=== PATIENT | male | born 1970 | race Caucasian/White ===

== ENCOUNTER → 2022-03-20 13:29 | Outpatient (CLI) | payer SELFPAY ==
--- NOTE | 2022-03-20 13:43 | DI.RAD.S_ITS ---
PROCEDURE: XR FOOT RT MIN 3V INDICATIONS: right foot injury/swelling/bruising TECHNIQUE: 3 views of the foot were acquired. COMPARISON: None. FINDINGS: Bones: Linear lucency at the posterior superior navicular bone seen on the lateral projection. No dislocations. No suspicious bony lesions. Soft tissues: No tibiotalar joint effusion. Achilles tendon appears normal. IMPRESSION: Possible nondisplaced fracture at the superior navicular bone. Dictated by: Donell Paula M.D. on 03/20/2022 at 14:45 Approved by: Donell Paula M.D. on 03/20/2022 at 14:47
== END ==
PROVIDERS: PCP Family Medicine; Referring Provider Family Medicine; Visit Provider Family Medicine
DX: S90.31XA Contusion of right foot, initial encounter (principal); R22.41 Localized swelling, mass and lump, right lower limb; X58.XXXA Exposure to other specified factors, initial encounter
CPT/HCPCS: 73630

== ENCOUNTER 2022-06-06 10:56 | Observation (INO) | payer SELFPAY ==
[2022-06-06] VITALS (35 sets, daily range): BP systolic 94–165; BP diastolic 53–103; PULSE 95–142; RESP 14–29; TEMP 36.7–37.2; O2SAT 93–98; BMI 28.2
--- NOTE | 2022-06-06 11:00 | DI.RAD.S_ITS ---
PROCEDURE: XR CHEST 1V INDICATIONS: chest pain TECHNIQUE: One view of the chest was acquired. COMPARISON: None. FINDINGS: Surgical changes and devices: None. Lungs and pleura: Lungs are clear. No pleural effusions or pneumothorax. Mediastinum: Mediastinal contours appear normal. Heart size is normal. Bones and chest wall: No suspicious bony lesions. Overlying soft tissues appear unremarkable. IMPRESSION: No acute pulmonary process. Dictated by: Tova Ovalles M.D. on 06/06/2022 at 11:32 Approved by: Tova Ovalles M.D. on 06/06/2022 at 11:32
[2022-06-06] MEDS: ASPIRIN 81 MG CHEW TAB 324 MG PO (11:23)
[2022-06-06] MEDS: NITROGLYCERIN 0.4 MG SL TAB SL (11:24)
--- NOTE | 2022-06-06 11:27 | PC.NURSE ---
Pt requesting water, educated and re-educated on reason for NPO status.
[2022-06-06 11:29] LABS: Add Manual Diff / Slide Review NO; Basophils Absolute Auto 100 /uL (0-100); Basophils Percent Auto 0.8 % (0-2); Eosinophils Absolute Auto 100 /uL (0-450); Eosinophils Percent Auto 0.4 % (2-4); Hematocrit 42.3 % (41-53); Hemoglobin 14.5 g/dL (13.5-17.5); Lymphocytes Absolute Auto 3000 /uL (1100-4500); Lymphocytes Percent Auto 20.8 % (25-40); Mean Corpuscular HGB Conc 34.2 % (30-36); Monocytes Absolute Auto 500 /uL (0-900); Monocytes Percent Auto 3.6 % (3-14); Neutrophils Absolute Auto 10900 /uL (1500-7000); Neutrophils Percent Auto 74.4 % (50-75); Platelet Count 221 X10^3/uL (150-400); Red Blood Cell Count 3.92 X10^6/uL (4.5-5.9); Red Cell Distribution Width 15.7 % (11.6-14.8); White Blood Cell Count 14.7 X10^3/uL (4.5-11.0)
[2022-06-06 11:33] LABS: INR 0.9 (0.9-1.3); Prothrombin Time 10.8 SECONDS (10.1-12.7)
--- NOTE | 2022-06-06 11:35 | PC.NURSE ---
Pt denies improvement in symptoms after Nitroglycerin, pt reports new nausea and feels sweaty, Dr. Jaime aware.
[2022-06-06 11:36] LABS: PTT Partial Thromboplastin Tim 27 SECONDS (26-36)
[2022-06-06 11:38] LABS: Alanine Aminotransferase 21 IU/L (<50); Albumin 4.7 g/dL (3.5-5.0); Albumin Globulin Ratio 1.4 (1.0-2.8); Alkaline Phosphatase 82 U/L (38-126); Aspartate Aminotransferase 36 IU/L (17-59); BUN Creatinine Ratio 18.8 (6-22); Bilirubin Total 0.7 mg/dL (0.2-1.3); Blood Urea Nitrogen 13 mg/dL (9-20); Calcium 8.8 mg/dL (8.4-10.2); Carbon Dioxide 11 mmol/L (22-32); Chloride 105 mmol/L (98-107); Creatine Kinase 67 U/L (55-170); Estimated Glomerular Filt Rate > 60 mL/min (>60); Globulin 3.3 g/dL (1.7-4.1); Glucose 56 mg/dL (70-100); HEMOLYSIS < 15 (0-50); Lipase 92 U/L (23-300); Magnesium 1.9 mg/dL (1.6-2.3); Potassium 3.6 mmol/L (3.4-5.1); Sodium 142 mmol/L (137-145)
--- NOTE | 2022-06-06 11:47 | DI.CT.S_ITS ---
PROCEDURE: CT ANGIO CHEST ABDOMEN PELVIS INDICATIONS: pain TECHNIQUE: Precontrast 5 mm thick sections acquired from the lung apices to the iliac crests. After the administration of intravenous contrast, 2.5 mm thick sections again acquired from the lung apices to the iliac crests. Maximum intensity projection (MIP) oblique sagittal and coronal reformats were then acquired. For radiation dose reduction, the following was used: automated exposure control. COMPARISON: [facility], CR, XR CHEST 1V, 06/06/2022, 11:10. FINDINGS: Image quality: Excellent. AORTA: No evidence of dissection, aneurysm, nor significant stenosis. CHEST: Lungs and pleura: No acute airspace opacities. There is mild scarring within the right mid lung anteriorly. Mild scarring within the left anterior lung base and left lower lobe posteriorly. No pleural effusions or pneumothorax. Central and peripheral airways are patent and normal in caliber. Mediastinum: Heart size is normal. No pericardial effusion. No mediastinal or hilar adenopathy by size criteria. Central pulmonary arteries are normal in size. Esophagus is normal in caliber. No hiatal hernias. There is mild calcification of the coronary vasculature. Bones and chest wall: No axillary adenopathy by size criteria. Thyroid gland is within normal limits . No suspicious bony lesions. No vertebral body compression fractures. ABDOMEN: Vasculature: Celiac trunk and mesenteric arteries are patent. Renal arteries are also patent. Solid organs: Liver is normal in size and enhancement. Gallbladder is grossly unremarkable . Biliary system is non dilated. Pancreas enhances normally. Spleen is normal in size and enhancement. No adrenal nodules. Both kidneys are normal in size and enhancement, without hydronephrosis. Peritoneum and bowel: No free fluid or air. There is diverticulosis of the descending and sigmoid colon. There is moderate thickening of the proximal sigmoid colon within the left anterior pelvis. Normal appendix. Nodes and vessels: No retroperitoneal or mesenteric adenopathy by size criteria. Inferior vena cava is normal in morphology. Miscellaneous: No ventral hernias. PELVIS: Genitourinary: Bladder wall thickness is normal. Miscellaneous: No inguinal hernias or adenopathy. No ventral hernias. Bones: No suspicious bony lesions. No vertebral body compression fractures. IMPRESSION: 1. No acute process involving the thoracoabdominal aorta. 2. Thickening of the proximal sigmoid colon which could indicate diverticulitis. Colonoscopy is recommended to exclude underlying neoplasm. 3. Normal appendix. 4. Coronary artery disease. Dictated by: Annie Simpson M.D. on 06/06/2022 at 12:17 Transcribed by: SANIYA on 06/06/2022 at 12:21 Approved by: Annie Simpson M.D. on 06/06/2022 at 12:27
[2022-06-06 11:49] LABS: Troponin I < 0.012 ng/mL (0.01-0.034)
--- NOTE | 2022-06-06 11:49 | PC.NURSE ---
Per Dr. Jaime, pt provided apple juice r/t glucose level.
[2022-06-06] MEDS: LORazepam 2 MG/ML INJ 0.5 MG IV (11:52)
--- NOTE | 2022-06-06 11:59 | ED_ITS ---
HPI - Chest Pain General Chief Complaint: Chest Pain Stated Complaint: Chest Pains Time Seen by Provider: 06/06/22 11:24 Source: patient Mode of arrival: Ambulatory Limitations: no limitations History of Present Illness HPI narrative: Patient is a 51-year-old male who does not go to doctors or have medical problems but is a current smoker presenting today with chest discomfort. He says he woke up this morning is and felt okay then suddenly felt a heaviness all across his chest. It has been persistent for over an hour it is not any worse is with exertion or rest. He cannot get comfortable. It does not seem to radiate. He is quite restless. He says he was in a normal state of health yesterday. He denies any fever or chills. He currently has no palpitations. He had no issues sleeping last night he has no peripheral edema he denies any palpitation. He is adamant that he does not have pain but he does report pressure Related Data Home Medications Medication Instructions Recorded Confirmed No Known Home Medications 06/06/22 06/06/22 Allergies Allergy/AdvReac Type Severity Reaction Status Date / Time No Known Drug Allergies Allergy Verified 06/06/22 11:08 Review of Systems Review of Systems Narrative: GENERAL: Denies chills, fatigue, malaise, fever, sweats, travel HEENT: Denies sinus pain, ear pain, sore throat, difficulty swallowing, neck pain RESPIRATORY: Denies dyspnea, cough, wheezing, hemoptysis, sputum. CARDIOVASCULAR: See HPI GASTROINTESTINAL: Denies nausea, vomiting, abdominal pain, diarrhea, constipation, melena. : Denies dysuria, frequency, incontinence, hematuria, urinary retention, flank pain. MUSCULOSKELETAL: Denies weakness, joint pain, or bony pain SKIN: No rash, no erythema, no pruritus NEUROLOGIC: Denies weakness, dizziness, headache, numbness, change in speech, confusion PSYCHIATRIC: No concerning psychosocial issues. 12 point review of systems is negative except for those stated above and HPI Patient History Medical History Ankle pain (~2019) Anxiety and depression (~2017) Headache (~2018) Nondisplaced fracture of navicular [scaphoid] of right foot, initial encounter for closed fracture Preventative health care Tobacco abuse counseling Wears glasses Family History Father Hypertension Mental health problem Mother Cancer Hypertension Hyperlipidemia Social History household members: spouse Smoking Status: Current every day smoker Tobacco: How many years used: 25 quit status: considering quitting second hand exposure: Yes alcohol intake: former substance use type: does not use and former substance user Smoking Status: Current every day smoker alcohol intake frequency: 3 or more drinks per day Substance Use Type: does not use Exam Initial Vital Signs Initial Vital Signs: Vital Signs Temperature 98.3 F 06/06/22 11:01 Pulse Rate 102 H 06/06/22 11:01 Respiratory Rate 18 06/06/22 11:01 Blood Pressure 113/75 06/06/22 11:01 Pulse Oximetry 98 06/06/22 11:01 Oxygen Delivery Method 06/06/22 11:01 GENERAL: Restless 51-year-old male HEENT: Head atraumatic,EOMI, pupils reactive, face symmetric, moist mucous membr anes CARDIOVASCULAR: Regular rate and rhythm without murmurs, rubs or gallops. RESPIRATORY: Tachypneic but clear breath sounds ABDOMEN: Soft, nontender. Normoactive bowel sounds all 4 quadrants. No guarding or rebound. EXTREMITIES: Normal range of motion, no clubbing or edema. Neurovascularly in tact NEUROLOGICAL: Alert and oriented x4.Normal gait and speech. Moving all extremities SKIN: Warm, dry, no laceration, no petechiae, no rashes or lesions. Course Orders Ordered: ED Orders 06/06/22 11:00 XR chest 1V Stat 06/06/22 11:07 EKG-12 Lead Stat 06/06/22 11:11 A1C [Hemoglobin A1C% w Est Avg Glu] Urgent Complete Blood Count AUTO DIFF Stat Comprehensive Metabolic Panel Stat Lactate (Lactic Acid) Stat Lipase Stat Magnesium Stat Partial Thromboplastin Time Stat Procalcitonin Stat Prothrombin Time INR Stat Troponin & CK Cardiac Panel Stat 06/06/22 11:47 CT angio chest abdomen pelvis Stat 06/06/22 13:29 Trop I [Troponin I] Stat 06/06/22 13:44 Blood Culture Stat 06/06/22 14:17 COVID19 -Nasal RAPID/Pre-Proc Stat 06/06/22 14:23 EKG-12 Lead Routine 06/06/22 15:51 Lactate (Lactic Acid) Stat 06/06/22 16:39 Urinalysis and Microscopic Urgent 06/06/22 16:40 EC echo doppler complete Urgent tox [Urine Drug Screen, Rapid] Stat 06/06/22 16:42 Consult to Dietitian, Adult Routine 06/07/22 05:00 BMP [Basic Metabolic Panel] DAILY CBC Auto Diff [Complete Blood Count AUTO DIFF] DAILY 06/08/22 05:00 BMP [Basic Metabolic Panel] DAILY CBC Auto Diff [Complete Blood Count AUTO DIFF] DAILY 06/09/22 05:00 BMP [Basic Metabolic Panel] DAILY CBC Auto Diff [Complete Blood Count AUTO DIFF] DAILY Aspirin (Aspirin Ec 81 Mg Tablet) 81 mg PO DAILY [facility] Atorvastatin Calcium (Atorvastatin 20 Mg Tablet) 40 mg PO BEDTIME [facility] Chlordiazepoxide HCl (Chlordiazepoxide 25 Mg Capsule) 50 mg PO Q6HR [facility] Last Admin: 06/06/22 18:25 Dose: 50 mg Documented By: RL Folic Acid (Folic Acid 1 Mg Tablet) 1 mg PO DAILY [facility] Ceftriaxone Sodium 1,000 mg/ (Sodium Chloride) 100 mls @ 200 mls/hr IV Q24H [facility] Stop: 06/12/22 08:59 Lorazepam (Lorazepam 2 Mg/Ml Inj) 0 mg IV [id number] PRN; Protocol PRN Reason: Alcohol Withdrawal Last Admin: 06/06/22 18:07 Dose: 1 mg Documented By: RL Melatonin (Melatonin 3 Mg Tablet) 6 mg PO BEDTIME PRN PRN Reason: Insomnia Metronidazole (Metronidazole 500 Mg Tablet) 500 mg PO TID [facility] Multivitamins (Multivitamin 1 Tablet) 1 tab PO DAILY [facility] Nicotine (Nicotine 21 Mg Patch) 21 mg TOP DAILY [facility] Last Admin: 06/06/22 18:08 Dose: 21 mg Documented By: RL Nitroglycerin (Nitroglycerin 0.4 Mg Sl Tab) 0.4 mg SL [id number] PRN PRN Reason: Chest Pain Last Admin: 06/06/22 11:24 Dose: 0.4 mg Documented By: AT Ondansetron HCl (Ondansetron 4 Mg/2 Ml Inj) 4 mg IV Q6HR PRN PRN Reason: Nausea And Vomiting Polyethylene Glycol (Polyethylene Glycol 3350 17 Gm Powd.Pack) 17 gm PO DAILY PRN PRN Reason: Constipation Sennosides (Sennosides 8.6 Mg Tablet) 8.6 mg PO BID PRN PRN Reason: Constipation Thiamine HCl (Thiamine 100 Mg Tablet) 100 mg PO DAILY [facility] Stop: 06/10/22 09:01 Trazodone HCl (Trazodone 50 Mg Tablet) 50 mg PO BEDTIME PRN PRN Reason: insomnia Discontinued Medications Albuterol/Ipratropium (Albuterol/Ipratropium 3 Ml Ampul) 3 ml INH NOW ONE Stop: 06/06/22 14:25 Last Admin: 06/06/22 14:33 Dose: 3 ml Documented By: CALEB Aspirin (Aspirin 81 Mg Chew Tab) 324 mg PO NOW ONE Stop: 06/06/22 11:17 Last Admin: 06/06/22 11:23 Dose: 324 mg Documented By: AT Sodium Chloride (Normal Saline 0.9%) 1,000 mls @ 1,000 mls/hr IV BOLUS ONE Stop: 06/06/22 13:26 Last Infusion: 06/06/22 15:05 Dose: 0 mls/hr Documented By: Admin: 06/06/22 12:43 Dose: 1,000 mls/hr Documented By: AT Sodium Chloride (Normal Saline 0.9%) 1,000 mls @ 1,000 mls/hr IV BOLUS ONE Stop: 06/06/22 15:57 Last Infusion: 06/06/22 17:13 Dose: 0 mls/hr Documented By: Admin: 06/06/22 15:10 Dose: 1,000 mls/hr Documented By: NAMRATA Levofloxacin (Levaquin) 750 mg in 150 mls @ 100 mls/hr IV NOW ONE Stop: 06/06/22 18:07 Last Admin: 06/06/22 18:47 Dose: 100 mls/hr Metronidazole (Flagyl) 500 mg in 100 mls @ 100 mls/hr IV NOW ONE Stop: 06/06/22 17:37 Last Infusion: 06/06/22 18:38 Dose: 0 mls/hr Documented By: Admin: 06/06/22 17:38 Dose: 100 mls/hr Documented By: RL Lorazepam (Lorazepam 2 Mg/Ml Inj) 0.5 mg IV NOW ONE Stop: 06/06/22 11:48 Last Admin: 06/06/22 11:52 Dose: 0.5 mg Documented By: AT Lorazepam (Lorazepam 2 Mg/Ml Inj) 1 mg IV NOW ONE Stop: 06/06/22 16:35 Last Admin: 06/06/22 16:44 Dose: 1 mg Documented By: NAMRATA Morphine Sulfate (Morphine 2 Mg/Ml Inj) 2 mg IV NOW ONE Stop: 06/06/22 11:34 Phenobarbital (Phenobarbital 65 Mg/Ml Vial) 130 mg IV NOW ONE Stop: 06/06/22 16:35 Last Admin: 06/06/22 16:47 Dose: 130 mg Documented By: NAMRATA Vital Signs Vital signs: Vital Signs - 8 hr 06/06/22 11:01 06/06/22 11:24 06/06/22 11:30 Temperature 98.3 F Pulse Rate 102 H 98 H 110 H Respiratory Rate 18 20 Blood Pressure 113/75 117/72 94/57 L Pulse Oximetry 98 98 Oxygen Delivery Method Room Air Room Air 06/06/22 11:35 06/06/22 11:40 06/06/22 11:46 Temperature Pulse Rate 101 H 105 H 95 H Respiratory Rate 18 Blood Pressure 102/58 L 96/53 L 109/65 Pulse Oximetry 98 Oxygen Delivery Method Room Air 06/06/22 11:50 06/06/22 12:15 06/06/22 12:30 Temperature Pulse Rate 106 H 109 H Respiratory Rate 18 Blood Pressure 117/76 106/61 107/65 Pulse Oximetry 93 Oxygen Delivery Method Room Air 06/06/22 12:45 06/06/22 13:00 06/06/22 13:15 Temperature Pulse Rate 110 H 113 H 117 H Respiratory Rate 18 18 18 Blood Pressure 124/73 109/57 L 100/54 L Pulse Oximetry 93 93 93 Oxygen Delivery Method Room Air Room Air Room Air 06/06/22 13:32 06/06/22 14:00 06/06/22 14:33 Temperature Pulse Rate 119 H 112 H 114 H Respiratory Rate 19 16 18 Blood Pressure Pulse Oximetry 94 93 94 Oxygen Delivery Method Room Air Room Air Room Air 06/06/22 14:26 06/06/22 14:26 06/06/22 14:30 Temperature Pulse Rate 112 H Respiratory Rate 20 Blood Pressure 121/81 124/75 Pulse Oximetry 96 Oxygen Delivery Method 06/06/22 14:30 06/06/22 15:00 06/06/22 15:00 Temperature Pulse Rate 110 H 108 H Respiratory Rate 16 14 Blood Pressure 113/77 Pulse Oximetry 93 94 Oxygen Delivery Method Room Air Room Air 06/06/22 15:30 06/06/22 15:30 06/06/22 16:00 Temperature Pulse Rate 108 H Respiratory Rate 15 Blood Pressure 116/79 110/75 Pulse Oximetry 95 Oxygen Delivery Method Room Air 06/06/22 16:00 06/06/22 16:30 06/06/22 16:31 Temperature Pulse Rate 117 H 122 H Respiratory Rate 24 18 Blood Pressure 165/102 H Pulse Oximetry 94 97 Oxygen Delivery Method Room Air 06/06/22 16:31 06/06/22 16:10 Temperature Pulse Rate 121 H 132 H Respiratory Rate 21 Blood Pressure 129/90 Pulse Oximetry 97 Oxygen Delivery Method MDM - Chest Pain Lab Data Result diagrams: 06/06/22 11:11 06/06/22 11:11 Labs: Lab Results 06/06/22 06/06/22 06/06/22 Range/Units 11:11 11:11 11:11 WBC 14.7 H (4.5-11.0) X10^3/uL RBC 3.92 L (4.5-5.9) X10^6/uL Hgb 14.5 (13.5-17.5) g/dL Hct 42.3 (41-53) % MCV 108.0 H (80-100) fL MCH 37.0 H (26-34) PG MCHC 34.2 (30-36) % RDW 15.7 H (11.6-14.8) % Plt Count 221 (150-400) X10^3/uL Neut % (Auto) 74.4 (50-75) % Lymph % (Auto) 20.8 L (25-40) % Banner % (Auto) 3.6 (3-14) % Eos % (Auto) 0.4 L (2-4) % Baso % (Auto) 0.8 (0-2) % Neut # (Auto) 72646 H (4988-5277) /uL Lymph # (Auto) 3000 (1726-5187) /uL Banner # (Auto) 500 (0-900) /uL Eos # (Auto) 100 (0-450) /uL Baso # (Auto) 100 (0-100) /uL PT 10.8 (10.1-12.7) SECONDS INR 0.9 (0.9-1.3) APTT 27 (26-36) SECONDS Sodium 142 (137-145) mmol/L Potassium 3.6 (3.4-5.1) mmol/L Chloride 105 (98-107) mmol/L Carbon Dioxide 11 L (22-32) mmol/L BUN 13 (9-20) mg/dL Creatinine 0.69 (0.66-1.25) mg/dL Estimated GFR > 60 (>60) mL/min BUN/Creatinine Ratio 18.8 (6-22) Glucose 56 L (70-100) mg/dL Hemoglobin A1c (4.0-6.0) % Lactate (0.7-2.1) mmol/L Calcium 8.8 (8.4-10.2) mg/dL Magnesium 1.9 (1.6-2.3) mg/dL Total Bilirubin 0.7 (0.2-1.3) mg/dL AST 36 (17-59) IU/L ALT 21 (<50) IU/L Alkaline Phosphatase 82 (38-126) U/L Total Creatine Kinase 67 (55-170) U/L CK-MB (CK-2) TNP CK-MB (CK-2) Rel Index TNP Troponin I < 0.012 (0.01-0.034) ng/mL Total Protein 8.0 (6.3-8.2) g/dL Albumin 4.7 (3.5-5.0) g/dL Globulin 3.3 (1.7-4.1) g/dL Albumin/Globulin Ratio 1.4 (1.0-2.8) Lipase 92 (23-300) U/L Procalcitonin (<0.5) ng/mL SARS-CoV-2 (PCR) (Negative) 06/06/22 06/06/22 06/06/22 Range/Units 11:11 11:11 11:11 WBC (4.5-11.0) X10^3/uL RBC (4.5-5.9) X10^6/uL Hgb (13.5-17.5) g/dL Hct (41-53) % MCV (80-100) fL MCH (26-34) PG MCHC (30-36) % RDW (11.6-14.8) % Plt Count (150-400) X10^3/uL Neut % (Auto) (50-75) % Lymph % (Auto) (25-40) % Banner % (Auto) (3-14) % Eos % (Auto) (2-4) % Baso % (Auto) (0-2) % Neut # (Auto) (3208-1792) /uL Lymph # (Auto) (0663-7515) /uL Banner # (Auto) (0-900) /uL Eos # (Auto) (0-450) /uL Baso # (Auto) (0-100) /uL PT (10.1-12.7) SECONDS INR (0.9-1.3) APTT (26-36) SECONDS Sodium (137-145) mmol/L Potassium (3.4-5.1) mmol/L Chloride (98-107) mmol/L Carbon Dioxide (22-32) mmol/L BUN (9-20) mg/dL Creatinine (0.66-1.25) mg/dL Estimated GFR (>60) mL/min BUN/Creatinine Ratio (6-22) Glucose (70-100) mg/dL Hemoglobin A1c 4.6 (4.0-6.0) % Lactate 5.7 H* (0.7-2.1) mmol/L Calcium (8.4-10.2) mg/dL Magnesium (1.6-2.3) mg/dL Total Bilirubin (0.2-1.3) mg/dL AST (17-59) IU/L ALT (<50) IU/L Alkaline Phosphatase (38-126) U/L Total Creatine Kinase (55-170) U/L CK-MB (CK-2) CK-MB (CK-2) Rel Index Troponin I (0.01-0.034) ng/mL Total Protein (6.3-8.2) g/dL Albumin (3.5-5.0) g/dL Globulin (1.7-4.1) g/dL Albumin/Globulin Ratio (1.0-2.8) Lipase (23-300) U/L Procalcitonin 0.06 (<0.5) ng/mL SARS-CoV-2 (PCR) (Negative) 06/06/22 06/06/22 06/06/22 Range/Units 13:29 13:29 14:17 WBC (4.5-11.0) X10^3/uL RBC (4.5-5.9) X10^6/uL Hgb (13.5-17.5) g/dL Hct (41-53) % MCV (80-100) fL MCH (26-34) PG MCHC (30-36) % RDW (11.6-14.8) % Plt Count (150-400) X10^3/uL Neut % (Auto) (50-75) % Lymph % (Auto) (25-40) % Banner % (Auto) (3-14) % Eos % (Auto) (2-4) % Baso % (Auto) (0-2) % Neut # (Auto) (1255-4325) /uL Lymph # (Auto) (9565-5001) /uL Banner # (Auto) (0-900) /uL Eos # (Auto) (0-450) /uL Baso # (Auto) (0-100) /uL PT (10.1-12.7) SECONDS INR (0.9-1.3) APTT (26-36) SECONDS Sodium (137-145) mmol/L Potassium (3.4-5.1) mmol/L Chloride (98-107) mmol/L Carbon Dioxide (22-32) mmol/L BUN (9-20) mg/dL Creatinine (0.66-1.25) mg/dL Estimated GFR (>60) mL/min BUN/Creatinine Ratio (6-22) Glucose (70-100) mg/dL Hemoglobin A1c (4.0-6.0) % Lactate 4.5 H* (0.7-2.1) mmol/L Calcium (8.4-10.2) mg/dL Magnesium (1.6-2.3) mg/dL Total Bilirubin (0.2-1.3) mg/dL AST (17-59) IU/L ALT (<50) IU/L Alkaline Phosphatase (38-126) U/L Total Creatine Kinase (55-170) U/L CK-MB (CK-2) CK-MB (CK-2) Rel Index Troponin I < 0.012 (0.01-0.034) ng/mL Total Protein (6.3-8.2) g/dL Albumin (3.5-5.0) g/dL Globulin (1.7-4.1) g/dL Albumin/Globulin Ratio (1.0-2.8) Lipase (23-300) U/L Procalcitonin (<0.5) ng/mL SARS-CoV-2 (PCR) Negative (Negative) 06/06/22 Range/Units 15:51 WBC (4.5-11.0) X10^3/uL RBC (4.5-5.9) X10^6/uL Hgb (13.5-17.5) g/dL Hct (41-53) % MCV (80-100) fL MCH (26-34) PG MCHC (30-36) % RDW (11.6-14.8) % Plt Count (150-400) X10^3/uL Neut % (Auto) (50-75) % Lymph % (Auto) (25-40) % Banner % (Auto) (3-14) % Eos % (Auto) (2-4) % Baso % (Auto) (0-2) % Neut # (Auto) (8537-3778) /uL Lymph # (Auto) (1517-8823) /uL Banner # (Auto) (0-900) /uL Eos # (Auto) (0-450) /uL Baso # (Auto) (0-100) /uL PT (10.1-12.7) SECONDS INR (0.9-1.3) APTT (26-36) SECONDS Sodium (137-145) mmol/L Potassium (3.4-5.1) mmol/L Chloride (98-107) mmol/L Carbon Dioxide (22-32) mmol/L BUN (9-20) mg/dL Creatinine (0.66-1.25) mg/dL Estimated GFR (>60) mL/min BUN/Creatinine Ratio (6-22) Glucose (70-100) mg/dL Hemoglobin A1c (4.0-6.0) % Lactate 2.5 H (0.7-2.1) mmol/L Calcium (8.4-10.2) mg/dL Magnesium (1.6-2.3) mg/dL Total Bilirubin (0.2-1.3) mg/dL AST (17-59) IU/L ALT (<50) IU/L Alkaline Phosphatase (38-126) U/L Total Creatine Kinase (55-170) U/L CK-MB (CK-2) CK-MB (CK-2) Rel Index Troponin I (0.01-0.034) ng/mL Total Protein (6.3-8.2) g/dL Albumin (3.5-5.0) g/dL Globulin (1.7-4.1) g/dL Albumin/Globulin Ratio (1.0-2.8) Lipase (23-300) U/L Procalcitonin (<0.5) ng/mL SARS-CoV-2 (PCR) (Negative) Point of Care Testing Glucose POC 82 Imaging Data Chest x-ray: Radiologist's Impression: [place] [address] XRay Report Signed Patient: Armen Tran MR#: [id number] : 1970 Acct:[id number] Age/Sex: 51 / M Date of Service: 06/06/22 Loc: ED Accession Number: [id number] ?? Procedure: XR chest 1V Ordering Provider: Yesica Jaime D.O. PROCEDURE:? XR CHEST 1V ? INDICATIONS:? chest pain ? TECHNIQUE:? One view of the chest was acquired.? ? COMPARISON:? None. ? FINDINGS:? ? Surgical changes and devices:? None.? ? Lungs and pleura:? Lungs are clear.? No pleural effusions or pneumothorax.? ? Mediastinum:? Mediastinal contours appear normal.? Heart size is normal.? ? Bones and chest wall:? No suspicious bony lesions.? Overlying soft tissues appear unremarkable.? ? IMPRESSION:? No acute pulmonary process. ? ? Dictated by: Tova Ovalles M.D. on 06/06/2022 at 11:32 ? ? Approved by: Tova Ovalles M.D. on 06/06/2022 at 11:32 CT scan - chest: Radiologist's Impression: CT Scan Report Signed Patient: Armen Tran MR#: [id number] : 1970 Acct:[id number] Age/Sex: 51 / M Date of Service: 06/06/22 Loc: ED Accession Number: [id number] ?? Procedure: CT angio chest abdomen pelvis Ordering Provider: Yesica Jaime D.O. PROCEDURE:? CT ANGIO CHEST ABDOMEN PELVIS ? INDICATIONS:? pain ? TECHNIQUE:? Precontrast 5 mm thick sections acquired from the lung apices to the iliac crests.? After the administration of intravenous contrast, 2.5 mm thick sections again acquired from the lung apices to the iliac crests.? Maximum intensity projection (MIP) oblique sagittal and coronal reformats were then acquired.? For radiation dose reduction, the following was used:? automated exposure control.? ? COMPARISON:? [facility], CR, XR CHEST 1V, 06/06/2022, 11:10. ? FINDINGS:? Image quality:? Excellent.? ? AORTA:? No evidence of dissection, aneurysm, nor significant stenosis. ? CHEST:? Lungs and pleura:? No acute airspace opacities.? There is mild scarring within the right mid lung anteriorly.? Mild scarring within the left anterior lung base and left lower lobe posteriorly.? No pleural effusions or pneumothorax.? Central and peripheral airways are patent and normal in caliber.? ? Mediastinum:? Heart size is normal.? No pericardial effusion.? No mediastinal or hilar adenopathy by size criteria.? Central pulmonary arteries are normal in size.? Esophagus is normal in caliber.? No hiatal hernias.? There is mild calcification of the coronary vasculature. ? Bones and chest wall:? No axillary adenopathy by size criteria.? Thyroid gland is within normal limits .? No suspicious bony lesions.? No vertebral body compression fractures.? ? ? ABDOMEN:? Vasculature:? Celiac trunk and mesenteric arteries are patent.? Renal arteries are also patent.? ? Solid organs:? Liver is normal in size and enhancement.? Gallbladder is grossly unremarkable .? Biliary system is non dilated.? Pancreas enhances normally.? Spleen is normal in size and enhancement.? No adrenal nodules.? Both kidneys are normal in size and enhancement, without hydronephrosis.? ? Peritoneum and bowel:? No free fluid or air.? There is diverticulosis of the descending and sigmoid colon.? There is moderate thickening of the proximal sigmoid colon within the left anterior pelvis.? Normal appendix. ? Nodes and vessels:? No retroperitoneal or mesenteric adenopathy by size criteria.? Inferior vena cava is normal in morphology.? ? Miscellaneous:? No ventral hernias.? ? ? PELVIS:? Genitourinary:? Bladder wall thickness is normal.? ? Miscellaneous:? No inguinal hernias or adenopathy.? No ventral hernias.? ? Bones:? No suspicious bony lesions.? No vertebral body compression fractures.? ? ? IMPRESSION:? 1. No acute process involving the thoracoabdominal aorta. 2. Thickening of the proximal sigmoid colon which could indicate diverticulitis.? Colonoscopy is recommended to exclude underlying neoplasm. 3. Normal appendix. 4. Coronary artery disease.? ? Dictated by: Annie Simpson M.D. on 06/06/2022 at 12:17 ? Transcribed by: SANIYA on 06/06/2022 at 12:21? ? Approved by: Annie Simpson M.D. on 06/06/2022 at 12:27 ? ECG Data Interpretation: EKG 1. Sinus rhythm rate [address] depression in V5 and V6 probable artifact in V3 EKG 2. Definite artifact sinus rhythm rate 101 no ischemic change EKG 3. Sinus tachycardia rate 114 p.r. interval 170 no ischemic changes MDM Narrative Medical decision making narrative: Patient initially quite restless with complaining of chest discomfort. EKG was difficult to get without artifact but eventually did not show any ischemic changes any is 2- troponins. He was given nitroglycerin which did not help his pain along with aspirin. Patient still not feeling right CT angio was done which is also negative questionable diverticulitis but he has no abdominal pain. Patient lactate quite elevated initially at 5.7 he had about 1 L and it went to 4.5. He has blood cultures pending but no obvious infection at this time. He remains tachycardic in the emergency department for number of hours despite IV fluids. Upon re-questioning evaluation he comes out that he does drink alcohol his last drink was last night. Possible alcohol withdrawal which would explain lactic acidosis and ongoing tachycardia. Dr. Giang-patient's symptoms test results and kindly accepts patient Discharge Plan Departure Patient Disposition: Admitted As Inpatient Clinical Impression: Atypical chest pain, Alcohol abuse with withdrawal Admit Date/Time: 06/06/22 16:39 Admit Provider: Erick Giang
--- NOTE | 2022-06-06 12:14 | PC.NURSE ---
Pt reports decreased anxiety and mild improvement in original symptoms, therapeutic communication utilized and updated pt on current plan of care.
[2022-06-06 12:27] LABS: Lactate (Lactic Acid) 5.7 mmol/L (0.7-2.1)
[2022-06-06] MEDS: SODIUM CHLORIDE 0.9% 1,000 ML 1000 ML IV ×2 (12:43→15:10)
[2022-06-06 13:28] LABS: Procalcitonin 0.06 ng/mL (<0.5)
[2022-06-06 13:53] LABS: Reflexed Lactate in 2 Hours Y
[2022-06-06 14:06] LABS: Troponin I < 0.012 ng/mL (0.01-0.034)
[2022-06-06 14:30] LABS: Lactate 2HR (Lactic Acid Rflx) 4.5 mmol/L (0.7-2.1)
[2022-06-06] MEDS: ALBUTEROL/IPRATROPIUM 3 ML AMPUL INH (14:33)
[2022-06-06 14:53] LABS: COVID19 -Nasal RAPID Negative (Negative)
[2022-06-06 16:34] LABS: Lactate (Lactic Acid) 2.5 mmol/L (0.7-2.1)
--- NOTE | 2022-06-06 16:40 | DI.ECHO.S_ITS ---
[facility] +---------+ : : [address] : : : : [id number] : : : : Phone: [phone]+ Echocardiogram Report + + :Name: MOHIT LEYVA Study Date: 06/07/2022 Height: 74 in : :[facility] ReadingLocation: Weight: 220 lb : : Gender: Male BSA: 2.3 m2 : :: 1970 Age: 51 yrs BP: 136/99 mmHg: :Reason For Study: Chest Tightness : :Ordering Physician: Padmaja, : :Erick Performed By: Anuel Horton : :Referring: Erick Giang : + + Interpretation Summary The left ventricle is normal in size and wall thickness. Left ventricular systolic function is normal. The ejection fraction is estimated to be 55-60%. There are no focal wall motion abnormalities. Diastolic parameters suggest a relaxation abnormality of the left ventricle, consistent with probable normal filling pressures. The right ventricle is normal in size and function. Pulmonary artery pressures cannot be estimated because of the lack of a measurable TR jet velocity. Both atria are normal in size. There is no significant valvular heart disease. The ascending aorta is mildly enlarged. Procedure: A two-dimensional transthoracic echocardiogram with color flow and Doppler was performed. The study quality was technically adequate. There is no prior echocardiogram noted for this patient. Left Ventricle: The left ventricle is normal in size and wall thickness. Left ventricular systolic function is normal. The ejection fraction is estimated to be 55-60%. There are no focal wall motion abnormalities. Diastolic parameters suggest a relaxation abnormality of the left ventricle, consistent with probable normal filling pressures. Right Ventricle: The right ventricle is normal in size and function. Atria: Both atria are normal in size. The interatrial septum grossly appears intact with no obvious evidence for an atrial septal defect. Mitral Valve: The mitral valve is normal in structure and function. There is no mitral regurgitation noted. Aortic Valve: The aortic valve is normal in structure and function. No aortic regurgitation is present. Tricuspid Valve: The tricuspid valve is normal in structure and function. No tricuspid regurgitation. Pulmonary artery pressures cannot be estimated because of the lack of a measurable TR jet velocity. Pulmonic Valve: The pulmonic valve is normal in structure and function. There is a trace or physiologic amount of pulmonic regurgitation. There is no significant valvular heart disease. Great Vessels: The aortic root is normal size. The ascending aorta is mildly enlarged. The IVC is of normal diameter and collapses greater than 50% with a sniff. This suggests a low right atrial pressure of 3 mm Hg. Pericardium/ Pleura There is no pericardial effusion. There is no pleural effusion. MMode/2D Measurements & Calculations LVIDd: 5.0 cm LVOT diam: 2.5 cm LVIDs: 3.6 cm Ao root diam: 3.5 cm FS: 27.6 % asc Aorta Diam: 3.8 cm IVSd: 1.1 cm LVPWd: 1.1 cm LV garcia. diameter/BSA (cm/m^2): 2.2 LV sys. diameter/BSA (cm/m^2): 1.6 LA A2 area: 17.3 cm2 RA long axis: 5.4 cm LA A4 area: 17.5 cm2 RA area: 15.8 cm2 LA length (vol): 5.2 cm RA vol: 39.2 ml LA vol: 49.5 ml RA : 17.3 ml/m2 LA vol index: 21.9 ml/m2 TAPSE: 1.9 cm Doppler Measurements & Calculations Ao V2 max: 109.2 cm/sec LVOT Max Ag: 95.3 cm/sec Ao V2 mean: 79.8 cm/sec LV V1 max P.6 mmHg Ao max P.8 mmHg LV V1 VTI: 16.6 cm Ao mean P.8 mmHg NICHOL(I,D): 4.6 cm2 Ao V2 VTI: 18.2 cm NICHOL(V,D): 4.4 cm2 sev ratio: 0.91 NICHOL indexed to BSA (cm^2/m^2): 2.0 MV E max ag: 51.8 cm/sec SV(LVOT): 83.2 ml MV A max ag: 72.4 cm/sec MV E/A: 0.72 Med Peak E' Ag: 6.1 cm/sec E/E' med: 8.6 Lat Peak E' Ag: 9.6 cm/sec E/E' lat: 5.4 E/e' average: 7.0 MV dec time: 0.20 sec Reading Physician:09:31 AM
[2022-06-06] MEDS: LORazepam 2 MG/ML INJ 1 MG IV (16:44)
--- NOTE | 2022-06-06 16:44 | P.HP_ITS ---
History of Present Illness History of Present Illness Date Patient Seen: 06/06/22 Time Patient Seen: 17:37 Chief complaint: Chest Pains Narrative: Angy mcdonald is a 51-year-old male with past medical history of alcohol abuse, tobacco dependence, anxiety, and depression who presents to the ED with chest heaviness found to be in alcohol withdrawal. States he awoke this morning with chest pressure all across his chest. No diaphoresis or NV. Pain did not improve and was constant so he came to the ED. Was given 3 aspirin and 1 nitro which improved the pain. Did not radiate anywhere. Patient says he drinks 1 bottle of [employer] liquor daily and his last drink was at 11pm on 06/05 which was approx 19 hours ago. He denies history of significant withdrawals, DT or seizures. Smokes 1ppd. No family cardiac history. Doesn't use any drugs other than occasional marijuana. May be interested in detox after hospital stay. Patient History Medical History Ankle pain (~2019) Anxiety and depression (~2017) Headache (~2017) Nondisplaced fracture of navicular [scaphoid] of right foot, initial encounter for closed fracture Preventative health care Tobacco abuse counseling Wears glasses Family & Social History Family History Father Hypertension Mental health problem Mother Cancer Hypertension Hyperlipidemia Safety & Behavioral: Feels Safe in Current Yes Environment Been Physically Hurt or No Threatened By a Person Tobacco & Substance use: Smoking Status Current every day smoker alcohol intake former alcohol intake frequency 3 or more drinks per day Substance Use Type does not use Meds Home Medications and Allergies Home Medications Medication Instructions Recorded Confirmed Type No Known Home Medications 06/06/22 06/06/22 History Allergies Allergy/AdvReac Type Severity Reaction Status Date / Time No Known Drug Allergies Allergy Verified 06/06/22 11:08 Review of Systems Review of Systems Narrative: All other systems reviewed with the patient and are negative unless otherwise stated. Exam Vital Signs (past 8 hours): - 06/06/22 11:01 06/06/22 11:24 06/06/22 11:30 Temperature 98.3 F Pulse Rate 102 H 98 H 110 H Respiratory Rate 18 20 Blood Pressure 113/75 117/72 94/57 L Pulse Oximetry 98 98 Oxygen Delivery Method Room Air Room Air 06/06/22 11:35 06/06/22 11:40 06/06/22 11:46 Temperature Pulse Rate 101 H 105 H 95 H Respiratory Rate 18 Blood Pressure 102/58 L 96/53 L 109/65 Pulse Oximetry 98 Oxygen Delivery Method Room Air 06/06/22 11:50 06/06/22 12:15 06/06/22 12:30 Temperature Pulse Rate 106 H 109 H Respiratory Rate 18 Blood Pressure 117/76 106/61 107/65 Pulse Oximetry 93 Oxygen Delivery Method Room Air 06/06/22 12:45 06/06/22 13:00 06/06/22 13:15 Temperature Pulse Rate 110 H 113 H 117 H Respiratory Rate 18 18 18 Blood Pressure 124/73 109/57 L 100/54 L Pulse Oximetry 93 93 93 Oxygen Delivery Method Room Air Room Air Room Air 06/06/22 13:32 06/06/22 14:00 06/06/22 14:33 Temperature Pulse Rate 119 H 112 H 114 H Respiratory Rate 19 16 18 Blood Pressure Pulse Oximetry 94 93 94 Oxygen Delivery Method Room Air Room Air Room Air 06/06/22 14:26 06/06/22 14:26 06/06/22 14:30 Temperature Pulse Rate 112 H Respiratory Rate 20 Blood Pressure 121/81 124/75 Pulse Oximetry 96 Oxygen Delivery Method 06/06/22 14:30 06/06/22 15:00 06/06/22 15:00 Temperature Pulse Rate 110 H 108 H Respiratory Rate 16 14 Blood Pressure 113/77 Pulse Oximetry 93 94 Oxygen Delivery Method Room Air Room Air 06/06/22 15:30 06/06/22 15:30 Temperature Pulse Rate 108 H Respiratory Rate 15 Blood Pressure 116/79 Pulse Oximetry 95 Oxygen Delivery Method Room Air Oxygen Delivery Method Room Air Narrative Exam Narrative: GEN: no acute distress, anxious and tremulous HEENT: moist mucous membranes, PERRL NECK: trachea midline, no JVD CV: tachycardic, regular rhythm, no murmurs PULM: clear bilaterally ABD: soft, nontender, nondistended, no organomegaly EXT: warm and well perfused with no edema NEURO: awake, alert, oriented, no focal deficits Objective Labs Result Diagrams: 06/06/22 11:11 06/06/22 11:11 Labs: Laboratory Results - last 24 hr 06/06/22 06/06/22 06/06/22 11:11 11:11 11:11 WBC 14.7 H RBC 3.92 L Hgb 14.5 Hct 42.3 MCV 108.0 H MCH 37.0 H MCHC 34.2 RDW 15.7 H Plt Count 221 Neut % (Auto) 74.4 Lymph % (Auto) 20.8 L [place] % (Auto) 3.6 Eos % (Auto) 0.4 L Baso % (Auto) 0.8 Neut # (Auto) 66162 H Lymph # (Auto) 3000 [place] # (Auto) 500 Eos # (Auto) 100 Baso # (Auto) 100 PT 10.8 INR 0.9 APTT 27 Sodium 142 Potassium 3.6 Chloride 105 Carbon Dioxide 11 L BUN 13 Creatinine 0.69 Estimated GFR > 60 BUN/Creatinine Ratio 18.8 Glucose 56 L Lactate Calcium 8.8 Magnesium 1.9 Total Bilirubin 0.7 AST 36 ALT 21 Alkaline Phosphatase 82 Total Creatine Kinase 67 CK-MB (CK-2) TNP CK-MB (CK-2) Rel Index TNP Troponin I < 0.012 Total Protein 8.0 Albumin 4.7 Globulin 3.3 Albumin/Globulin Ratio 1.4 Lipase 92 Procalcitonin SARS-CoV-2 (PCR) 06/06/22 06/06/22 06/06/22 11:11 11:11 13:29 WBC RBC Hgb Hct MCV MCH MCHC RDW Plt Count Neut % (Auto) Lymph % (Auto) [place] % (Auto) Eos % (Auto) Baso % (Auto) Neut # (Auto) Lymph # (Auto) [place] # (Auto) Eos # (Auto) Baso # (Auto) PT INR APTT Sodium Potassium Chloride Carbon Dioxide BUN Creatinine Estimated GFR BUN/Creatinine Ratio Glucose Lactate 5.7 H* Calcium Magnesium Total Bilirubin AST ALT Alkaline Phosphatase Total Creatine Kinase CK-MB (CK-2) CK-MB (CK-2) Rel Index Troponin I < 0.012 Total Protein Albumin Globulin Albumin/Globulin Ratio Lipase Procalcitonin 0.06 SARS-CoV-2 (PCR) 06/06/22 06/06/22 06/06/22 13:29 14:17 15:51 WBC RBC Hgb Hct MCV MCH MCHC RDW Plt Count Neut % (Auto) Lymph % (Auto) [place] % (Auto) Eos % (Auto) Baso % (Auto) Neut # (Auto) Lymph # (Auto) [place] # (Auto) Eos # (Auto) Baso # (Auto) PT INR APTT Sodium Potassium Chloride Carbon Dioxide BUN Creatinine Estimated GFR BUN/Creatinine Ratio Glucose Lactate 4.5 H* 2.5 H Calcium Magnesium Total Bilirubin AST ALT Alkaline Phosphatase Total Creatine Kinase CK-MB (CK-2) CK-MB (CK-2) Rel Index Troponin I Total Protein Albumin Globulin Albumin/Globulin Ratio Lipase Procalcitonin SARS-CoV-2 (PCR) Negative Assessment & Plan Assessment & Plan narrative: # acute alcohol withdrawal -drinks 1 bottle of liquor daily, last drink 19 hours prior to admission -CIWA with IV ativan PRN -librium 50mg q6h PRN -seizure precautions -MV, thiamine and folate # chest pain -classic description of chest pressure relieved with nitro in ED -troponin negative x2, EKG without ST changes -obtain echocardiogram -likely unable to perform stress test due to alcohol withdrawal, once out of withdrawals can try -telemetry -start 81mg ASA daily -start lipitor 40mg nightly -check A1c and lipids # leukocytosis with possible acute diverticulitis -CT abdomen showed colonic wall thickening with possible diverticulitis however patient has no abdominal pain -WBC 14 of unknown source, possibly in contraction and stress. Check UA -will start antibiotics for now -continue with Rocephin and Flagyl -f/u blood cultures # lactic acidosis, improving -lactate of 5.7 on admission, possibly due to dehydration versus colitis -improved to 2.7 with fluids Code status is full code. COVID negative. DVT prophylaxis with Lovenox. Proxy is Maryan spouse. I have reviewed home meds and used all available resources to reconcile the home meds. This patient will be admitted as patient and will require greater than 2 midnights of hospital time to treat alcohol withdrawal, chest pain and possible diverticulitis. Time Spent With Patient Critical Care time: I spent a total of [] minutes of critical care time on this patient's care today; this time is exclusive of procedural time.
[2022-06-06] MEDS: PHENobarbital 65 MG/ML VIAL 130 MG IV (16:47)
[2022-06-06] MEDS: metroNIDAZOLE 500 MG/100 ML PIGGYBACK 100 MG IV (17:38)
[2022-06-06 17:45] LABS: Hemoglobin A1C% w Est Avg Glu 4.6 % (4.0-6.0)
[2022-06-06] MEDS: LORazepam 2 MG/ML INJ IV (18:07)
[2022-06-06] MEDS: NICOTINE 21 MG PATCH TOP (18:08)
[2022-06-06] MEDS: chlordiazePOXIDE 25 MG CAPSULE 50 MG PO ×2 (18:25→23:15)
[2022-06-06 18:27] LABS: Reflexed Lactate in 2 Hours Y
[2022-06-06] MEDS: levoFLOXacin 750 MG/150 ML PIGGYBACK 100 MG IV (18:47)
[2022-06-06 19:00] LABS: Lactate 2HR (Lactic Acid Rflx) 1.2 mmol/L (0.7-2.1)
[2022-06-06] MEDS: ATORVASTATIN 20 MG TABLET 40 MG PO (20:30)
[2022-06-06] MEDS: metroNIDAZOLE 500 MG TABLET PO (20:30)
--- NOTE | 2022-06-06 20:30 | PC.NURSE ---
On assessment, patient's HR 140's while awake. CIWA 1. KALEB Hudson made aware. 1L bolus of LR given. After liter bolus given, HR still sustaining 120's-130's while sleeping. KALEB Hudson updated.
[2022-06-06] MEDS: LACTATED RINGERS 1,000 ML 1000 ML IV (20:31)
[2022-06-06 21:55] LABS: Appearance Urine UA CLEAR; Bilirubin Urine UA NEGATIVE (NEGATIVE); Color Urine UA YELLOW; Glucose Urine UA NEGATIVE (Negative); Ketones Urine UA 3+ (NEGATIVE); Leukocyte Esterase Urine UA NEGATIVE (NEGATIVE); Nitrite Urine UA NEGATIVE (Negative); Occult Blood Urine UA NEGATIVE (Negative); Protein Urine UA NEGATIVE (Negative); Urobilinogen Urine UA 0.2 E.U./dL (0.2)
[2022-06-06 22:00] LABS: UR Morphine/Opiate cutoff 300 Negative (Negative); Ur Creatinine Normal (Normal); Ur Specific Gravity Normal (Normal); Urine Amphetamines Negative (Negative); Urine Cocaine Negative (Negative); Urine Methamphetamines Negative (Negative); Urine Phencyclidine Negative (Negative); Urine Tetrahydrocannabinol Positive (Negative); Urine pH Normal (Normal)
[2022-06-06 22:01] LABS: Urine Barbiturates Negative (Negative); Urine Benzodiazepines Positive (Negative); Urine MDMA Negative (Negative); Urine Methadone Negative (Negative); Urine Oxycodone Negative (Negative); Urine Tricyclic Antidepressant Negative (Negative)
[2022-06-06 22:03] LABS: Bacteria Urine None Seen; Culture Indicated Urine Cult Not Indicated; RBC Urine None Seen (0-5/HPF); Urine Comments Microscopic Normal; WBC Urine None Seen (0-5/HPF)
[2022-06-06] MEDS: LACTATED RINGERS 1,000 ML 80 ML IV (23:15)
[2022-06-07] VITALS (11 sets, daily range): BP systolic 120–168; BP diastolic 62–106; PULSE 88–119; RESP 14–26; TEMP 36.6–36.9; O2SAT 98
[2022-06-07] MEDS: chlordiazePOXIDE 25 MG CAPSULE 50 MG PO (06:21)
[2022-06-07 07:01] LABS: Add Manual Diff / Slide Review NO; Basophils Absolute Auto 100 /uL (0-100); Basophils Percent Auto 0.7 % (0-2); Eosinophils Absolute Auto 100 /uL (0-450); Eosinophils Percent Auto 0.7 % (2-4); Hematocrit 37.8 % (41-53); Hemoglobin 13.1 g/dL (13.5-17.5); Lymphocytes Absolute Auto 1200 /uL (1100-4500); Lymphocytes Percent Auto 11.8 % (25-40); Mean Corpuscular HGB Conc 34.7 % (30-36); Mean Corpuscular Hemoglobin 37.1 PG (26-34); Monocytes Absolute Auto 700 /uL (0-900); Monocytes Percent Auto 7.1 % (3-14); Neutrophils Absolute Auto 8000 /uL (1500-7000); Neutrophils Percent Auto 79.7 % (50-75); Platelet Count 170 X10^3/uL (150-400); Red Blood Cell Count 3.53 X10^6/uL (4.5-5.9); Red Cell Distribution Width 15.3 % (11.6-14.8)
[2022-06-07 07:12] LABS: BUN Creatinine Ratio 13.9 (6-22); Blood Urea Nitrogen 10 mg/dL (9-20); Calcium 8.5 mg/dL (8.4-10.2); Carbon Dioxide 27 mmol/L (22-32); Chloride 103 mmol/L (98-107); Estimated Glomerular Filt Rate > 60 mL/min (>60); Glucose 118 mg/dL (70-100); HEMOLYSIS < 15 (0-50); Potassium 3.9 mmol/L (3.4-5.1); Sodium 136 mmol/L (137-145)
[2022-06-07 07:23] LABS: Troponin I < 0.012 ng/mL (0.01-0.034)
--- NOTE | 2022-06-07 07:37 | P.PN_ITS ---
Exam Vital Signs (past 8 hours): - 06/07/22 03:00 06/07/22 00:00 06/07/22 00:00 Pulse Rate 99 H 115 H Respiratory Rate 15 17 Blood Pressure 168/100 H 127/96 H Pulse Oximetry Oxygen Flow Rate 06/07/22 00:30 06/07/22 01:00 06/07/22 01:00 Pulse Rate 119 H 117 H Respiratory Rate 17 14 Blood Pressure 120/92 H Pulse Oximetry Oxygen Flow Rate 06/07/22 01:30 06/07/22 02:00 06/07/22 02:00 Pulse Rate 111 H 109 H Respiratory Rate 14 19 Blood Pressure 148/98 H Pulse Oximetry Oxygen Flow Rate 06/07/22 02:30 06/07/22 03:00 06/07/22 03:00 Pulse Rate 104 H 99 H Respiratory Rate 14 15 Blood Pressure 168/100 H Pulse Oximetry Oxygen Flow Rate 06/07/22 03:30 06/07/22 04:00 Pulse Rate 110 H 100 H Respiratory Rate 21 17 Blood Pressure 159/62 H Pulse Oximetry 98 Oxygen Flow Rate 0 Oxygen Delivery Method Room Air Oxygen Flow Rate 0 Narrative Exam Narrative: GEN: no acute distress, anxious and tremulous HEENT: moist mucous membranes, PERRL NECK: trachea midline, no JVD CV: tachycardic, regular rhythm, no murmurs PULM: clear bilaterally ABD: soft, nontender, nondistended, no organomegaly EXT: warm and well perfused with no edema NEURO: awake, alert, oriented, no focal deficits Objective Labs Result Diagrams: 06/07/22 06:41 06/07/22 06:41 Labs: Laboratory Results - last 24 hr 06/06/22 06/06/22 06/06/22 11:11 11:11 11:11 WBC 14.7 H RBC 3.92 L Hgb 14.5 Hct 42.3 MCV 108.0 H MCH 37.0 H MCHC 34.2 RDW 15.7 H Plt Count 221 Neut % (Auto) 74.4 Lymph % (Auto) 20.8 L [place] % (Auto) 3.6 Eos % (Auto) 0.4 L Baso % (Auto) 0.8 Neut # (Auto) 39957 H Lymph # (Auto) 3000 [place] # (Auto) 500 Eos # (Auto) 100 Baso # (Auto) 100 PT 10.8 INR 0.9 APTT 27 Sodium 142 Potassium 3.6 Chloride 105 Carbon Dioxide 11 L BUN 13 Creatinine 0.69 Estimated GFR > 60 BUN/Creatinine Ratio 18.8 Glucose 56 L Hemoglobin A1c Lactate Calcium 8.8 Magnesium 1.9 Total Bilirubin 0.7 AST 36 ALT 21 Alkaline Phosphatase 82 Total Creatine Kinase 67 CK-MB (CK-2) TNP CK-MB (CK-2) Rel Index TNP Troponin I < 0.012 Total Protein 8.0 Albumin 4.7 Globulin 3.3 Albumin/Globulin Ratio 1.4 Lipase 92 Procalcitonin Urine Color Urine Appearance Urine pH Ur Specific [place] Urine Protein Urine Glucose (UA) Urine Ketones Urine Occult Blood Urine Nitrate Urine Bilirubin Urine Urobilinogen Ur Leukocyte Esterase Urine RBC Urine WBC Urine Bacteria Ur Culture Indicated? Micro UA Comment Nasal Screen MRSA (PCR) U Opiates 300ng/mL cut Ur Oxycodone Screen Urine Methadone Screen Ur Barbiturates Screen U Tricyclic Antidepress Ur Phencyclidine Scrn Ur Amphetamines Screen U Methamphetamines Scrn Ur MDMA Scrn (Ecstasy) U Benzodiazepines Scrn Urine Cocaine Screen U Marijuana (THC) Screen SARS-CoV-2 (PCR) 06/06/22 06/06/22 06/06/22 11:11 11:11 11:11 WBC RBC Hgb Hct MCV MCH MCHC RDW Plt Count Neut % (Auto) Lymph % (Auto) [place] % (Auto) Eos % (Auto) Baso % (Auto) Neut # (Auto) Lymph # (Auto) [place] # (Auto) Eos # (Auto) Baso # (Auto) PT INR APTT Sodium Potassium Chloride Carbon Dioxide BUN Creatinine Estimated GFR BUN/Creatinine Ratio Glucose Hemoglobin A1c 4.6 Lactate 5.7 H* Calcium Magnesium Total Bilirubin AST ALT Alkaline Phosphatase Total Creatine Kinase CK-MB (CK-2) CK-MB (CK-2) Rel Index Troponin I Total Protein Albumin Globulin Albumin/Globulin Ratio Lipase Procalcitonin 0.06 Urine Color Urine Appearance Urine pH Ur Specific [place] Urine Protein Urine Glucose (UA) Urine Ketones Urine Occult Blood Urine Nitrate Urine Bilirubin Urine Urobilinogen Ur Leukocyte Esterase Urine RBC Urine WBC Urine Bacteria Ur Culture Indicated? Micro UA Comment Nasal Screen MRSA (PCR) U Opiates 300ng/mL cut Ur Oxycodone Screen Urine Methadone Screen Ur Barbiturates Screen U Tricyclic Antidepress Ur Phencyclidine Scrn Ur Amphetamines Screen U Methamphetamines Scrn Ur MDMA Scrn (Ecstasy) U Benzodiazepines Scrn Urine Cocaine Screen U Marijuana (THC) Screen SARS-CoV-2 (PCR) 06/06/22 06/06/22 06/06/22 13:29 13:29 14:17 WBC RBC Hgb Hct MCV MCH MCHC RDW Plt Count Neut % (Auto) Lymph % (Auto) [place] % (Auto) Eos % (Auto) Baso % (Auto) Neut # (Auto) Lymph # (Auto) [place] # (Auto) Eos # (Auto) Baso # (Auto) PT INR APTT Sodium Potassium Chloride Carbon Dioxide BUN Creatinine Estimated GFR BUN/Creatinine Ratio Glucose Hemoglobin A1c Lactate 4.5 H* Calcium Magnesium Total Bilirubin AST ALT Alkaline Phosphatase Total Creatine Kinase CK-MB (CK-2) CK-MB (CK-2) Rel Index Troponin I < 0.012 Total Protein Albumin Globulin Albumin/Globulin Ratio Lipase Procalcitonin Urine Color Urine Appearance Urine pH Ur Specific [place] Urine Protein Urine Glucose (UA) Urine Ketones Urine Occult Blood Urine Nitrate Urine Bilirubin Urine Urobilinogen Ur Leukocyte Esterase Urine RBC Urine WBC Urine Bacteria Ur Culture Indicated? Micro UA Comment Nasal Screen MRSA (PCR) U Opiates 300ng/mL cut Ur Oxycodone Screen Urine Methadone Screen Ur Barbiturates Screen U Tricyclic Antidepress Ur Phencyclidine Scrn Ur Amphetamines Screen U Methamphetamines Scrn Ur MDMA Scrn (Ecstasy) U Benzodiazepines Scrn Urine Cocaine Screen U Marijuana (THC) Screen SARS-CoV-2 (PCR) Negative 06/06/22 06/06/22 06/06/22 15:51 17:55 18:40 WBC RBC Hgb Hct MCV MCH MCHC RDW Plt Count Neut % (Auto) Lymph % (Auto) [place] % (Auto) Eos % (Auto) Baso % (Auto) Neut # (Auto) Lymph # (Auto) [place] # (Auto) Eos # (Auto) Baso # (Auto) PT INR APTT Sodium Potassium Chloride Carbon Dioxide BUN Creatinine Estimated GFR BUN/Creatinine Ratio Glucose Hemoglobin A1c Lactate 2.5 H 1.2 Calcium Magnesium Total Bilirubin AST ALT Alkaline Phosphatase Total Creatine Kinase CK-MB (CK-2) CK-MB (CK-2) Rel Index Troponin I Total Protein Albumin Globulin Albumin/Globulin Ratio Lipase Procalcitonin Urine Color Urine Appearance Urine pH Ur Specific [place] Urine Protein Urine Glucose (UA) Urine Ketones Urine Occult Blood Urine Nitrate Urine Bilirubin Urine Urobilinogen Ur Leukocyte Esterase Urine RBC Urine WBC Urine Bacteria Ur Culture Indicated? Micro UA Comment Nasal Screen MRSA (PCR) Negative for mrsa U Opiates 300ng/mL cut Ur Oxycodone Screen Urine Methadone Screen Ur Barbiturates Screen U Tricyclic Antidepress Ur Phencyclidine Scrn Ur Amphetamines Screen U Methamphetamines Scrn Ur MDMA Scrn (Ecstasy) U Benzodiazepines Scrn Urine Cocaine Screen U Marijuana (THC) Screen SARS-CoV-2 (PCR) 06/06/22 06/06/22 06/07/22 21:45 21:45 06:41 WBC RBC Hgb Hct MCV MCH MCHC RDW Plt Count Neut % (Auto) Lymph % (Auto) [place] % (Auto) Eos % (Auto) Baso % (Auto) Neut # (Auto) Lymph # (Auto) [place] # (Auto) Eos # (Auto) Baso # (Auto) PT INR APTT Sodium Potassium Chloride Carbon Dioxide BUN Creatinine Estimated GFR BUN/Creatinine Ratio Glucose Hemoglobin A1c Lactate Calcium Magnesium Total Bilirubin AST ALT Alkaline Phosphatase Total Creatine Kinase CK-MB (CK-2) CK-MB (CK-2) Rel Index Troponin I < 0.012 Total Protein Albumin Globulin Albumin/Globulin Ratio Lipase Procalcitonin Urine Color Yellow Urine Appearance Clear Urine pH 5.0 Ur Specific [place] 1.020 Urine Protein Negative Urine Glucose (UA) Negative Urine Ketones 3+ H Urine Occult Blood Negative Urine Nitrate Negative Urine Bilirubin Negative Urine Urobilinogen 0.2 Ur Leukocyte Esterase Negative Urine RBC None seen Urine WBC None seen Urine Bacteria None seen Ur Culture Indicated? Cult not indicated Micro UA Comment Microscopic normal Nasal Screen MRSA (PCR) U Opiates 300ng/mL cut Negative Ur Oxycodone Screen Negative Urine Methadone Screen Negative Ur Barbiturates Screen Negative U Tricyclic Antidepress Negative Ur Phencyclidine Scrn Negative Ur Amphetamines Screen Negative U Methamphetamines Scrn Negative Ur MDMA Scrn (Ecstasy) Negative U Benzodiazepines Scrn Positive H Urine Cocaine Screen Negative U Marijuana (THC) Screen Positive H SARS-CoV-2 (PCR) 06/07/22 06/07/22 06:41 06:41 WBC 10.0 RBC 3.53 L Hgb 13.1 L Hct 37.8 L MCV 107.0 H MCH 37.1 H MCHC 34.7 RDW 15.3 H Plt Count 170 Neut % (Auto) 79.7 H Lymph % (Auto) 11.8 L [place] % (Auto) 7.1 Eos % (Auto) 0.7 L Baso % (Auto) 0.7 Neut # (Auto) 8000 H Lymph # (Auto) 1200 [place] # (Auto) 700 Eos # (Auto) 100 Baso # (Auto) 100 PT INR APTT Sodium 136 L Potassium 3.9 Chloride 103 Carbon Dioxide 27 BUN 10 Creatinine 0.72 Estimated GFR > 60 BUN/Creatinine Ratio 13.9 Glucose 118 H Hemoglobin A1c Lactate Calcium 8.5 Magnesium Total Bilirubin AST ALT Alkaline Phosphatase Total Creatine Kinase CK-MB (CK-2) CK-MB (CK-2) Rel Index Troponin I Total Protein Albumin Globulin Albumin/Globulin Ratio Lipase Procalcitonin Urine Color Urine Appearance Urine pH Ur Specific [place] Urine Protein Urine Glucose (UA) Urine Ketones Urine Occult Blood Urine Nitrate Urine Bilirubin Urine Urobilinogen Ur Leukocyte Esterase Urine RBC Urine WBC Urine Bacteria Ur Culture Indicated? Micro UA Comment Nasal Screen MRSA (PCR) U Opiates 300ng/mL cut Ur Oxycodone Screen Urine Methadone Screen Ur Barbiturates Screen U Tricyclic Antidepress Ur Phencyclidine Scrn Ur Amphetamines Screen U Methamphetamines Scrn Ur MDMA Scrn (Ecstasy) U Benzodiazepines Scrn Urine Cocaine Screen U Marijuana (THC) Screen SARS-CoV-2 (PCR) PFSH Medical History Ankle pain (~2019) Anxiety and depression (~2018) Headache (~2018) Nondisplaced fracture of navicular [scaphoid] of right foot, initial encounter for closed fracture Preventative health care Tobacco abuse counseling Wears glasses Family History Father Hypertension Mental health problem Mother Cancer Hypertension Hyperlipidemia Social History household members: spouse Smoking Status: Current every day smoker Tobacco: How many years used: 25 quit status: considering quitting second hand exposure: Yes alcohol intake: former substance use type: does not use and former substance user Assessment & Plan Assessment & Plan narrative: # acute alcohol withdrawal -drinks 1 bottle of liquor daily, last drink 19 hours prior to admission -CIWA with IV ativan PRN -librium 50mg q6h PRN -seizure precautions -MV, thiamine and folate # chest pain -classic description of chest pressure relieved with nitro in ED -troponin negative x2, EKG without ST changes -obtain echocardiogram -likely unable to perform stress test due to alcohol withdrawal, once out of withdrawals can try -telemetry -start 81mg ASA daily -start lipitor 40mg nightly -check A1c and lipids # leukocytosis with possible acute diverticulitis -CT abdomen showed colonic wall thickening with possible diverticulitis however patient has no abdominal pain -WBC 14 of unknown source, possibly in contraction and stress. Check UA -will start antibiotics for now -continue with Rocephin and Flagyl -f/u blood cultures # lactic acidosis, improving -lactate of 5.7 on admission, possibly due to dehydration versus colitis -improved to 2.7 with fluids Code status is full code. COVID negative. DVT prophylaxis with Lovenox. Proxy is Maryan spouse. I have reviewed home meds and used all available resources to reconcile the home meds. This patient will be admitted as patient and will require greater than 2 mi dnights of hospital time to treat alcohol withdrawal, chest pain and possible diverticulitis. Time Spent With Patient Critical Care time: I spent a total of [] minutes of critical care time on this patient's care today; this time is exclusive of procedural time. Quality VTE Deep Vein Thrombosis/Pulmonary Embolism Present on Admission: No
[2022-06-07] MEDS: THIAMINE 100 MG TABLET PO (08:10)
[2022-06-07] MEDS: ASPIRIN EC 81 MG TABLET PO (08:10)
[2022-06-07] MEDS: FOLIC ACID 1 MG TABLET PO (08:10)
[2022-06-07] MEDS: metroNIDAZOLE 500 MG TABLET PO (08:10)
[2022-06-07] MEDS: MULTIVITAMIN 1 TABLET 1 TAB PO (08:10)
[2022-06-07] MEDS: NICOTINE 21 MG PATCH TOP (08:10)
--- NOTE | 2022-06-07 08:11 | PC.NURSE ---
LR infusion paused for stress test.
[2022-06-07] MEDS: cefTRIAXone 1,000 MG in SODIUM CHLORIDE 0.9% 100 ML 200 MG IV (09:08)
--- NOTE | 2022-06-07 13:15 | DIET.CONS ---
Addendum entered by Renee Lawton 06/07/22 15:25: RD reviewed and agrees Original Note: Dietary Consultation Note Admission Date: 06/06/2022 16:39 Assessment: Pt is a 51 yo M admitted for chest pain and referred to RD for alcoholism. Pt is currently NPO r/t stress test r/t HR >140?s. Pt is taking MV, Thiamine, and Folate in hospital. RD met with Pt and Pt?s at bedside. Pt reports UBW of 200-210# and gained some weight during COVID. Pt reports no recent changes in body weight. Diet recall: Wake: 9-10 am B: 9-10 am Breakfast sandwich with sausage and egg on Kyr[place] muffin or bagel, OJ L: 12-12:30 pm Whole sandwich or Mac & cheese, or leftovers S: Varies D: 7 pm Ribs/steak, potatoes, salad S: Ice cream or other dessert Beverages: Drinks roughly 34 oz water daily, switches in the afternoon to juice (can drink a 32 oz bottle of cranberry juice in 1 day). When asked about EtOH, pt initially stated he occasionally drinks whiskey. Later, pt reported >6 beers and ? 750 mL whiskey daily. H&P reports pt consumes 1 bottle of Hernandez [place] daily. Pt RBC 3.53 x 10^6/uL (Low), Hgb 13.1 g/dL (Low), Hct 37.8% (Low), MCV 107.0 fL (High), MCH 37.1 PG (High) possible r/t EtOH intake. Ht: 187.96 cm Wt: 99.79 kg BMI: 28.2 UBW: 200-210# Last BM: () MNA: 14 Benjamin Score: 22 Diet: 06/07/22 07:48 NPO Diet Diet Modifications: NPO Type: NPO except for Meds Nutrition Percent Meal Consumed 25% 06/06/22 18:20 Labs: RBC 3.53 X10^6/uL (4.5-5.9) L 06/07/22 06:41 Hgb 13.1 g/dL (13.5-17.5) L 06/07/22 06:41 Hct 37.8 % (41-53) L 06/07/22 06:41 Creatinine 0.72 mg/dL (0.66-1.25) 06/07/22 06:41 Hemoglobin A1c 4.6 % (4.0-6.0) 06/06/22 11:11 Lactate 1.2 mmol/L (0.7-2.1) 06/06/22 18:40 Nutrition Diagnosis: Excessive alcohol intake r/t precontemplative stage of change aeb pt in ICU for EtOH withdrawals, pt reports regular EtOH intake of >3 drinks daily. Interventions: RD provided education on EtOH intake effects on nutritional health, in particular B-vitamins. Pt appeared more inclined to suppl with B-vitamins than reduce EtOH intake. When asked about a plan to reduce EtOH intake, pt reported no plan. RD discussed importance of and recc suppl with MV, in particular, B-vitamin and Vitamin C, when consuming more than the daily recommended amount of EtOH. RD recc reducing EtOH intake. MV suppl intake may be reevaluated as EtOH intake reduces with the goal of obtaining nutrients for a general healthy diet and using suppl only to supplement an existing healthy diet. Monitoring/Evaluations: Consult prn. Electronically Signed by: Serene Wang 06/07/22 13:15 Clinical Dietitian [address] [address]
--- NOTE | 2022-06-07 13:43 | CM.DANOTE ---
Initial DCP Assessment Note Pt is a 51 yo male, resident of [place],arrives w/chest pains and admitted observation for chest pain r/o, cardiac w/u PCP: Arnold Zhong Payer: Self Pay Reviewed chart, pt discussed in multidisciplinary rounds this morning. Discharge expected this afternoon after stress test Per chart, patient admits to drinking approx one bottle of crown royal daily. CIWA 0 overnight. Upon leaving the hospital w/spouse this afternoon, this DIRECTOR BANKING able to provide list of outpatient [facility] treatment providers and detox facility options. Strongly encouraged patient not to quit cold turkey at home; as this could be dangerous given the amount of alcohol patient has reported drinking daily, patient states understanding FALLON Siddiqui Discharge Planning/Care Management CM Discharge Assessment Start: 06/07/22 13:41 Freq: Status: Active Protocol: Document 06/07/22 13:41 DIONY (Rec: 06/07/22 13:43 DIONY [id number]) Discharge Planning Assessment Assigned Microphone Boom Operator FALLON King DPOA/Assigned Designee Name Tova Tran, spouse Contact Information [phone] Advance Directives? No History Provided By Patient Prior Living Arrangements House Household Members spouse Type of transporation used prior to Drives own vehicle admit Independent with ADL's Yes Is patient alert and oriented? Yes Barriers to Discharge No Discharge Plan Home Transportation Arrangement Spouse Referrals Initiated None needed
--- NOTE | 2022-06-07 17:40 | DI.NM.S_ITS ---
DATE OF SERVICE: 06/07/2022 PROCEDURE: Pharmacological perfusion study. INDICATION: Chest pain. RADIOPHARMACEUTICAL: 27.0 millicurie technetium-99m Myoview IV was injected at stress and 9.7 millicurie technetium-99m Myoview IV was injected at rest. CARDIAC STRESS: The patient underwent IV Lexiscan perfusion study under the supervision of an attending staff, as per standard protocol. During Lexiscan, patient has minimal dyspnea and chest tightness, which got better in immediate recovery. Baseline rhythm was sinus. During Lexiscan infusion, there were no obvious ischemic changes or no significant arrhythmias. Baseline blood pressure 132/100. During Lexiscan, blood pressure 142/96. RAW DATA: There is increased subdiaphragmatic activity. The patient's weight is 220 pounds. GATED STUDY: Stress LV ejection fraction 68 percent without any obvious wall motion abnormalities. Stress end-diastolic volume 108 mL. Lung/heart ratio 0.36, which is within normal limits. TID ratio 1.0, which is within normal limits. MYOCARDIAL PERFUSION SCAN: Stress supine, resting supine and stress prone images were compared to each other. Stress supine and resting supine images revealed moderate-size, mildly decreased perfusion of inferior wall and inferoapex, which got completely resolved during stress prone images, suggestive of diaphragmatic tissue attenuation artifact. During stress prone images, no convincing ischemia or infarction. CONCLUSION: I will call this study a normal myocardial perfusion study with evidence of diaphragmatic tissue attenuation artifact, which got resolved during stress prone images. Preserved left ventricular function. No ischemic changes during Lexiscan infusion. No significant arrhythmias. Overall low-risk myocardial perfusion scan. Marc Armen - ELLIOT/alexandro/reynaldo doc#: [id number]/job#: [id number] dd: 06/07/2022 12:55:00 dt: 06/07/2022 17:33:00 DICTATING MD/COPIES TO: Rodrigo Grace MD COPIES MNE: KANIKA;
--- NOTE | 2022-06-07 17:41 | PM.DS.1 ---
History of Present Illness History of Present Illness Date Patient Seen: 06/07/22 Time Patient Seen: 12:00 Chief complaint: Chest Pains Narrative: Angy mcdonald is a 51-year-old male with past medical history of alcohol abuse, tobacco dependence, anxiety, and depression who presents to the ED with chest heaviness found to be in alcohol withdrawal. States he awoke this morning with chest pressure all across his chest. No diaphoresis or NV. Pain did not improve and was constant so he came to the ED. Was given 3 aspirin and 1 nitro which improved the pain. Did not radiate anywhere. Patient says he drinks 1 bottle of [employer] liquor daily and his last drink was at 11pm on 06/05 which was approx 19 hours ago. He denies history of significant withdrawals, DT or seizures. Smokes 1ppd. No family cardiac history. Doesn't use any drugs other than occasional marijuana. Discharge Providers Provider Date of admission: 06/06/22 16:39 Discharge Date: 06/07/22 Primary care physician: Arnold Zhong DO Consults: 06/06/22 16:42 Consult to Dietitian, Adult Routine Comment: Reason For Exam: alcoholism Discharge provider: Erick Giang DO Summary Hospital Course Discharge Diagnosis: # acute alcohol withdrawal -drinks 1 bottle of liquor daily, last drink 19 hours prior to admission -CIWA with IV ativan PRN -librium 50mg q6h PRN -CIWA scores remained low and he was no longer in withdrawals after day 1 in hospital -recommended outpatient PCP medication management for alcohol cessation # chest pain -classic description of chest pressure relieved with nitro in ED -troponin negative x2, EKG without ST changes -echocardiogram with EF 55-60% with no focal WMA's with diastolic dysfunction -nuc med stress test was normal -telemetry -started 81mg ASA daily -started lipitor 40mg nightly -A1c normal -recommended alcohol cessation for heart health # HTN -not on home meds -started losartan 25mg at dc # leukocytosis with possible acute diverticulitis, resolved -CT abdomen showed colonic wall thickening with possible diverticulitis however patient has no abdominal pain -WBC 14 then resolved to 10 -continued with Rocephin and Flagyl, dc on discharge -blood cultures neg at 24 hours # lactic acidosis, improving -lactate of 5.7 on admission, possibly due to dehydration versus colitis -improved to 2.7 with fluids Hospital Course: Admitted for chest pain and alcohol withdrawals. Drinks 1 bottle of liqour daily. Underwent echo and stress test which were normal. Troponins were negative. Patient's withdrawals were mild and he was counseled for 15 minutes on alcohol cessation. Start on baby aspirin, lipitor and losartan for BP at discharge for heart health. Time Spent with Patient Time spent: Greater than 30 minutes Exam Vital Signs (past 8 hours): - 06/07/22 12:26 Temperature 98 F Pulse Rate 88 Respiratory Rate 17 Blood Pressure 154/106 H Pulse Oximetry 98 Oxygen Flow Rate 0 Oxygen Delivery Method Room Air Oxygen Flow Rate 0 Narrative Exam Narrative: GEN: no acute distress, anxious and tremulous HEENT: moist mucous membranes, PERRL NECK: trachea midline, no JVD CV: tachycardic, regular rhythm, no murmurs PULM: clear bilaterally ABD: soft, nontender, nondistended, no organomegaly EXT: warm and well perfused with no edema NEURO: awake, alert, oriented, no focal deficits Objective Labs Result Diagrams: 06/07/22 06:41 06/07/22 06:41 Labs: Laboratory Results - last 24 hr 06/06/22 06/06/22 06/06/22 11:11 17:55 18:40 WBC RBC Hgb Hct MCV MCH MCHC RDW Plt Count Neut % (Auto) Lymph % (Auto) Mccone % (Auto) Eos % (Auto) Baso % (Auto) Neut # (Auto) Lymph # (Auto) Mccone # (Auto) Eos # (Auto) Baso # (Auto) Sodium Potassium Chloride Carbon Dioxide BUN Creatinine Estimated GFR BUN/Creatinine Ratio Glucose Hemoglobin A1c 4.6 Lactate 1.2 Calcium Troponin I Urine Color Urine Appearance Urine pH Ur Specific [place] Urine Protein Urine Glucose (UA) Urine Ketones Urine Occult Blood Urine Nitrate Urine Bilirubin Urine Urobilinogen Ur Leukocyte Esterase Urine RBC Urine WBC Urine Bacteria Ur Culture Indicated? Micro UA Comment Nasal Screen MRSA (PCR) Negative for mrsa U Opiates 300ng/mL cut Ur Oxycodone Screen Urine Methadone Screen Ur Barbiturates Screen U Tricyclic Antidepress Ur Phencyclidine Scrn Ur Amphetamines Screen U Methamphetamines Scrn Ur MDMA Scrn (Ecstasy) U Benzodiazepines Scrn Urine Cocaine Screen U Marijuana (THC) Screen 06/06/22 06/06/2222 21:45 21:45 06:41 WBC RBC Hgb Hct MCV MCH MCHC RDW Plt Count Neut % (Auto) Lymph % (Auto) Mccone % (Auto) Eos % (Auto) Baso % (Auto) Neut # (Auto) Lymph # (Auto) Mccone # (Auto) Eos # (Auto) Baso # (Auto) Sodium Potassium Chloride Carbon Dioxide BUN Creatinine Estimated GFR BUN/Creatinine Ratio Glucose Hemoglobin A1c Lactate Calcium Troponin I < 0.012 Urine Color Yellow Urine Appearance Clear Urine pH 5.0 Ur Specific [place] 1.020 Urine Protein Negative Urine Glucose (UA) Negative Urine Ketones 3+ H Urine Occult Blood Negative Urine Nitrate Negative Urine Bilirubin Negative Urine Urobilinogen 0.2 Ur Leukocyte Esterase Negative Urine RBC None seen Urine WBC None seen Urine Bacteria None seen Ur Culture Indicated? Cult not indicated Micro UA Comment Microscopic normal Nasal Screen MRSA (PCR) U Opiates 300ng/mL cut Negative Ur Oxycodone Screen Negative Urine Methadone Screen Negative Ur Barbiturates Screen Negative U Tricyclic Antidepress Negative Ur Phencyclidine Scrn Negative Ur Amphetamines Screen Negative U Methamphetamines Scrn Negative Ur MDMA Scrn (Ecstasy) Negative U Benzodiazepines Scrn Positive H Urine Cocaine Screen Negative U Marijuana (THC) Screen Positive H 06/07/22 06/07/22 06:41 06:41 WBC 10.0 RBC 3.53 L Hgb 13.1 L Hct 37.8 L MCV 107.0 H MCH 37.1 H MCHC 34.7 RDW 15.3 H Plt Count 170 Neut % (Auto) 79.7 H Lymph % (Auto) 11.8 L Mccone % (Auto) 7.1 Eos % (Auto) 0.7 L Baso % (Auto) 0.7 Neut # (Auto) 8000 H Lymph # (Auto) 1200 Mccone # (Auto) 700 Eos # (Auto) 100 Baso # (Auto) 100 Sodium 136 L Potassium 3.9 Chloride 103 Carbon Dioxide 27 BUN 10 Creatinine 0.72 Estimated GFR > 60 BUN/Creatinine Ratio 13.9 Glucose 118 H Hemoglobin A1c Lactate Calcium 8.5 Troponin I Urine Color Urine Appearance Urine pH Ur Specific [place] Urine Protein Urine Glucose (UA) Urine Ketones Urine Occult Blood Urine Nitrate Urine Bilirubin Urine Urobilinogen Ur Leukocyte Esterase Urine RBC Urine WBC Urine Bacteria Ur Culture Indicated? Micro UA Comment Nasal Screen MRSA (PCR) U Opiates 300ng/mL cut Ur Oxycodone Screen Urine Methadone Screen Ur Barbiturates Screen U Tricyclic Antidepress Ur Phencyclidine Scrn Ur Amphetamines Screen U Methamphetamines Scrn Ur MDMA Scrn (Ecstasy) U Benzodiazepines Scrn Urine Cocaine Screen U Marijuana (THC) Screen [facility] Medical History Ankle pain (~2019) Anxiety and depression (~2017) Headache (~2017) Nondisplaced fracture of navicular [scaphoid] of right foot, initial encounter for closed fracture Preventative health care Tobacco abuse counseling Wears glasses Family History Father Hypertension Mental health problem Mother Cancer Hypertension Hyperlipidemia Social History household members: spouse Smoking Status: Current every day smoker Tobacco: How many years used: 25 quit status: considering quitting second hand exposure: Yes alcohol intake: former substance use type: does not use and former substance user Discharge Plan Discharge Plan Patient Disposition: Home Provider Discharge Comment: You were admitted with chest pain and found to be in minor alcohol withdrawals. All of your heart workup looked great, including no rise in heart enzymes, normal ultrasound of heart, EKG and stress test. I've placed you on some medications for your heart to keep it as healthy as possible including aspirin daily, cholesterol medication and blood pressure medication. Please f/u for a PCP at [facility] clinic to work with them on medication or therapy options to help you quit drinking alcohol. Discharge orders & Medications Prescriptions: New aspirin 81 mg Tablet,Delayed Release (Dr/Ec) 81 mg PO DAILY Qty: 90 0RF atorvastatin 10 mg tablet 10 mg PO BEDTIME Qty: 90 0RF losartan 25 mg tablet 25 mg PO BEDTIME Qty: 90 0RF Continued No Known Home Medications Follow up/Referrals: Arnold Zhong DO [Primary Care Provider] - Discharge Data Primary Care Provider: Arnold Zhong Attending Provider: Erick Giang VTE Deep Vein Thrombosis/Pulmonary Embolism Present on Admission: No
--- NOTE | 2022-06-14 11:38 | PC.NURSE ---
Late Entry; Levaquin infusion initiated 06/06 at 1847 complete 2014.
== END 2022-06-07 13:50 | disposition home or self-care (01) ==
LOC: ED 11:24 → ICU 18:03 → AC 06-07 14:49
PROVIDERS: Admitting Provider Student in an Organized Health Care Education/Training Program; Emergency Provider Emergency Medicine; PCP Family Medicine; Referring Provider Emergency Medicine; Visit Provider Student in an Organized Health Care Education/Training Program
DX: F10.239 Alcohol dependence with withdrawal, unspecified (principal); E87.20 Acidosis, unspecified; D72.829 Elevated white blood cell count, unspecified; F41.9 Anxiety disorder, unspecified; F32.A Depression, unspecified; I10 Essential (primary) hypertension; F17.210 Nicotine dependence, cigarettes, uncomplicated; Z20.822 Contact with and (suspected) exposure to COVID-19
CPT/HCPCS: 36415; 71045; 71275; 74174; 78452; 80048; 80053; 80305; 81001; 82550; 82962; 83036; 83605; 83690; 83735; 84145; 84484; 85025; 85610; 85730; 87040; 87635; 87797; 93005; 93017; 93306; 94640; 96361; 96365; 96366; 96367; 96375; 96376; 99285; C9803; G0378; A9502; J0696; J1956; J2060; J2560; J2785

== ENCOUNTER → 2022-06-21 10:36 | Outpatient (CLI) | payer SELFPAY ==
[2022-06-06 17:47] VITALS: BMI 28.2
--- NOTE | 2022-06-21 10:43 | DI.RAD.S_ITS ---
PROCEDURE: XR FOOT RT MIN 3V INDICATIONS: Follow-up from previous fracture TECHNIQUE: 3 views of the foot were acquired. COMPARISON: [facility], CR, XR FOOT RT MIN 3V, 03/20/2022, 13:47. FINDINGS: Bones: Mild scattered arthrosis. Mild sclerosis and periosteal reaction surrounding the base of the 5th toe proximal phalanx, likely a healing nondisplaced fracture. As before, there is a bone fragment off of the dorsal navicular which may represent a healing fracture. Soft tissues: No tibiotalar joint effusion. Achilles tendon appears normal. IMPRESSION: Again seen is a bone fragment from the dorsal navicular, possibly an age-indeterminate healing fracture. There is also a healing nondisplaced fracture of the base of the 5th toe proximal phalanx. Dictated by: Jeffry Madrid M.D. on 06/21/2022 at 13:31 Approved by: Jeffry Madrid M.D. on 06/21/2022 at 13:33
== END ==
PROVIDERS: PCP Family Medicine; Referring Provider Family Medicine; Visit Provider Family Medicine
DX: S92.254A Nondisplaced fracture of navicular [scaphoid] of right foot, initial encounter for closed fracture (principal); S92.514D Nondisplaced fracture of proximal phalanx of right lesser toe(s), subsequent encounter for fracture with routine healing
CPT/HCPCS: 73630

== ENCOUNTER 2023-02-24 18:25 | Emergency (ER) | payer OTHER, MEDICAID, SELFPAY ==
[2022-06-06 17:47] VITALS: BMI 28.2
[2023-02-24] VITALS (26 sets, daily range): BP systolic 132–170; BP diastolic 76–105; PULSE 96–123; RESP 16–38; TEMP 36.2; O2SAT 93–99; BMI 26.9
--- NOTE | 2023-02-24 18:48 | DI.RAD.S_ITS ---
PROCEDURE: XR FOOT RT MIN 3V INDICATIONS: crushed foot injury ortho md reports toes not aligned TECHNIQUE: 3 views of the foot were acquired. COMPARISON: [facility], CR, XR FOOT 3+ VIEWS RIGHT, 02/22/2023, 17:36. [facility], CR, XR FOOT RT MIN 3V, 06/21/2022, 10:56. FINDINGS: Bones: There are fractures or dislocations at the Lisfranc joints. There is a fracture fragment proximal to the 1st metatarsal. No suspicious bony lesions. Soft tissues: No tibiotalar joint effusion. Achilles tendon appears normal. Soft tissue swelling. IMPRESSION: Lisfranc fractures/dislocations. Alignment appears unchanged since the last exam. Bone details are obscured by overlying cast. Dictated by: Sisi Carlos M.D. on 02/24/2023 at 19:39 Approved by: Sisi Carlos M.D. on 02/24/2023 at 19:42
[2023-02-24] MEDS: HYDROMORPHONE 1 MG INJ IV ×2 (19:13→20:58)
[2023-02-24] MEDS: ONDANSETRON 4 MG/2 ML INJ IV (19:13)
[2023-02-24 19:16] LABS: Add Manual Diff / Slide Review NO; Basophils Absolute Auto 100 /uL (0-100); Basophils Percent Auto 0.8 % (0-2); Eosinophils Absolute Auto 100 /uL (0-450); Eosinophils Percent Auto 1.1 % (2-4); Hematocrit 36.7 % (41-53); Lymphocytes Absolute Auto 1000 /uL (1100-4500); Lymphocytes Percent Auto 12.9 % (25-40); Mean Corpuscular HGB Conc 35.5 % (30-36); Mean Corpuscular Hemoglobin 36.9 PG (26-34); Mean Corpuscular Volume 103.9 fL (80-100); Monocytes Absolute Auto 800 /uL (0-900); Monocytes Percent Auto 10.2 % (3-14); Neutrophils Absolute Auto 5800 /uL (1500-7000); Platelet Count 166 X10^3/uL (150-400); Red Blood Cell Count 3.53 X10^6/uL (4.5-5.9); Red Cell Distribution Width 13.9 % (11.6-14.8); White Blood Cell Count 7.8 X10^3/uL (4.5-11.0)
[2023-02-24 19:35] LABS: Alanine Aminotransferase 20 IU/L (<50); Albumin 4.2 g/dL (3.5-5.0); Albumin Globulin Ratio 1.3 (1.0-2.8); Alkaline Phosphatase 71 U/L (38-126); Aspartate Aminotransferase 26 IU/L (17-59); BUN Creatinine Ratio 18.1 (6-22); Bilirubin Total 0.7 mg/dL (0.2-1.3); Blood Urea Nitrogen 13 mg/dL (9-20); Calcium 9.1 mg/dL (8.4-10.2); Carbon Dioxide 28 mmol/L (22-32); Chloride 100 mmol/L (98-107); Estimated Glomerular Filt Rate > 60 mL/min (>60); Globulin 3.2 g/dL (1.7-4.1); Glucose 97 mg/dL (70-100); HEMOLYSIS 17 (0-50); Potassium 3.8 mmol/L (3.4-5.1); Sodium 133 mmol/L (137-145); Total Protein 7.4 g/dL (6.3-8.2)
--- NOTE | 2023-02-24 19:42 | ED.LOWEXIN ---
HPI - Extremity Injury (Lower) General Chief Complaint: Extremity Injury, Lower Stated Complaint: Broken Toes per pt, needs bones alignedper hisdr Time Seen by Provider: 02/24/23 18:53 Source: patient Mode of arrival: Wheelchair History of Present Illness HPI Narrative: 52-year-old gentleman with a crush injury to his foot, seen at an outside hospital splinted and instructed to follow-up with orthopedics. X-rays were reviewed by Dr. Negro, he has a Lisfranc fracture that needs to be reduced. He presents to the emergency department for that. He is having a significant amount of pain. Related Data Previous Rx's Medication Instructions Recorded losartan 50 mg tablet 50 mg PO DAILY blood pressure #90 07/16/22 tabs oxycodone-acetaminophen 5 mg-325 1 tab PO Q6H PRN pain #20 tabs 02/24/23 mg tablet Allergies Allergy/AdvReac Type Severity Reaction Status Date / Time No Known Drug Allergies Allergy Verified 07/16/22 09:30 Review of Systems Review of Systems Narrative: Pertinent positive and negative findings as per HPI Patient History Medical History Ankle pain (~2019) Anxiety and depression (~2017) Benign essential HTN Headache (~2017) Nondisplaced fracture of navicular [scaphoid] of right foot, initial encounter for closed fracture Preventative health care Tobacco abuse counseling Wears glasses Family History Father Hypertension Mental health problem Mother Cancer Hypertension Hyperlipidemia Social History household members: spouse Smoking Status: Current every day smoker Tobacco: How many years used: 25 quit status: considering quitting second hand exposure: Yes alcohol intake: former substance use type: does not use and former substance user Smoking Status: Current every day smoker alcohol intake frequency: 3 or more drinks per day Substance Use Type: marijuana Exam Initial Vital Signs Initial Vital Signs: Vital Signs Temperature 97.1 F L 02/24/23 18:42 Pulse Rate 118 H 02/24/23 18:42 Respiratory Rate 18 02/24/23 18:42 Pulse Oximetry 98 02/24/23 18:42 Oxygen Delivery Method Room Air 02/24/23 18:42 General: Alert appropriate in no acute distress Respiratory: Able to speak in full sentences, no obvious respiratory distress Skin: No obvious rashes, warm and dry Neurologic: Grossly intact no obvious asymmetries or abnormalities Psych: appropriate insight and affect, cooperative Right lower extremity splint is removed. Significant swelling to the point there is some bulla developing over the dorsum of the foot without any signs of infection. Moderate ecchymosis. Neurovascularly intact Procedures Orthopedic Fracture Reduction Right foot: Time of procedure: 07:30 Time Out Performed: Yes Side: right Fracture Reduction Location: other (Foot, Lisfranc fracture) Analgesia: procedural sedation Technique: direct manipulation and traction/counter-traction Post-reduction neuro exam: intact Post-reduction vascular exam: intact Additional Comments: Postreduction CT scan for preoperative purposes is obtained. Moderate reduction Orthopedic Splinting/Casting Right foot: Side: right Lower Extremity Injury Location: foot Lower Extremity Immobilizer: posterior splint Post splinting neuro exam: intact Post splinting vascular exam: intact Placed by: Provider Procedural Sedation Time of procedure: 07:32 Consent signed: Yes Time out performed: Yes Indication: fracture/dislocation reduction ASA Class: II Mallampati Airway Classification: Class II Preparation: production estimator applied, pulse oximeter, capnometry used, suction/airway equipment at bedside and IV secured IV Propofol dose (mg): 300 Intraservice time/total sedation time (min): 18 ED Sedation Level: Moderate (Concious) Patient Tolerated Procedure: Well Course Orders Ordered: Discontinued Medications Hydromorphone HCl (Hydromorphone 1 Mg Inj) 1 mg IV NOW ONE Stop: 02/24/23 18:54 Last Admin: 02/24/23 19:13 Dose: 1 mg Documented By: Hydromorphone HCl (Hydromorphone 0.5 Mg Inj) 0.5 mg IV Q15MIN PRN PRN Reason: Pain, Hydromorphone HCl (Hydromorphone 1 Mg Inj) 1 mg IV NOW ONE Stop: 02/24/23 20:53 Last Admin: 02/24/23 20:58 Dose: 1 mg Documented By: Ondansetron HCl (Ondansetron 4 Mg/2 Ml Inj) 4 mg IV NOW ONE Stop: 02/24/23 18:54 Last Admin: 02/24/23 19:13 Dose: 4 mg Documented By: Oxycodone/Acetaminophen (Oxycodone/Apap 5/325 Prepack) 1 bottle MISC SEEINSTR ONE Stop: 02/24/23 19:40 Last Admin: 02/24/23 22:38 Dose: 1 bottle Documented By: Oxycodone/Acetaminophen (Oxycodone/Acetaminophen 5/325 Tablet) 2 tab PO NOW ONE Stop: 02/24/23 22:21 Last Admin: 02/24/23 22:38 Dose: 2 tab Documented By: Propofol (Propofol 200 Mg/20 Ml Vial) 200 mg IV NOW ONE Stop: 02/24/23 19:40 Last Admin: 02/24/23 20:28 Dose: 200 mg Documented By: Propofol (Propofol 200 Mg/20 Ml Vial) 200 mg IV NOW ONE Stop: 02/24/23 20:49 Last Admin: 02/24/23 20:50 Dose: 100 mg Documented By: Vital Signs Vital signs: Vital Signs - 8 hr 02/24/23 18:42 02/24/23 19:01 02/24/23 19:02 Temperature 97.1 F L Pulse Rate 118 H 115 H Respiratory Rate 18 Blood Pressure 134/99 H Pulse Oximetry 98 96 Oxygen Delivery Method Room Air Oxygen Flow Rate 02/24/23 19:02 02/24/23 19:30 02/24/23 19:30 Temperature Pulse Rate 114 H 102 H Respiratory Rate Blood Pressure 136/86 Pulse Oximetry 98 93 Oxygen Delivery Method Oxygen Flow Rate 02/24/23 19:50 02/24/23 19:50 02/24/23 19:52 Temperature Pulse Rate 103 H 104 H Respiratory Rate Blood Pressure 161/105 H Pulse Oximetry 95 95 Oxygen Delivery Method Oxygen Flow Rate 02/24/23 19:52 02/24/23 19:55 02/24/23 19:55 Temperature Pulse Rate 98 H Respiratory Rate Blood Pressure 154/93 H 141/95 H Pulse Oximetry 96 Oxygen Delivery Method Oxygen Flow Rate 02/24/23 20:00 02/24/23 20:00 02/24/23 20:05 Temperature Pulse Rate 101 H 104 H Respiratory Rate Blood Pressure 151/96 H Pulse Oximetry 96 95 Oxygen Delivery Method Oxygen Flow Rate 02/24/23 20:05 02/24/23 20:10 02/24/23 20:10 Temperature Pulse Rate 104 H Respiratory Rate Blood Pressure 148/98 H 150/103 H Pulse Oximetry 99 Oxygen Delivery Method Oxygen Flow Rate 02/24/23 20:15 02/24/23 20:15 02/24/23 20:20 Temperature Pulse Rate 99 H 97 H Respiratory Rate Blood Pressure 136/89 Pulse Oximetry 95 96 Oxygen Delivery Method Oxygen Flow Rate 02/24/23 20:20 02/24/23 20:25 02/24/23 20:25 Temperature Pulse Rate 100 H Respiratory Rate Blood Pressure 132/89 145/93 H Pulse Oximetry 94 Oxygen Delivery Method Oxygen Flow Rate 02/24/23 20:28 02/24/23 20:28 02/24/23 20:30 Temperature Pulse Rate 96 H Respiratory Rate Blood Pressure 150/95 H 138/94 H Pulse Oximetry 96 Oxygen Delivery Method Oxygen Flow Rate 02/24/23 20:30 02/24/23 20:35 02/24/23 20:35 Temperature Pulse Rate 115 H Respiratory Rate 24 Blood Pressure 143/96 H Pulse Oximetry 93 93 Oxygen Delivery Method Oxygen Flow Rate 02/24/23 20:40 02/24/23 20:40 02/24/23 20:45 Temperature Pulse Rate 113 H 112 H Respiratory Rate 20 27 H Blood Pressure 147/102 H Pulse Oximetry 93 99 Oxygen Delivery Method Nasal Cannula Oxygen Flow Rate 5 02/24/23 20:45 02/24/23 20:48 02/24/23 20:50 Temperature Pulse Rate 119 H 123 H Respiratory Rate 24 21 Blood Pressure 158/78 H Pulse Oximetry 97 98 Oxygen Delivery Method Room Air Oxygen Flow Rate 02/24/23 20:50 02/24/23 20:55 02/24/23 20:55 Temperature Pulse Rate 116 H Respiratory Rate 27 H Blood Pressure 170/98 H 166/90 H Pulse Oximetry 99 Oxygen Delivery Method Oxygen Flow Rate 02/24/23 21:00 02/24/23 21:01 02/24/23 21:01 Temperature Pulse Rate 118 H 112 H Respiratory Rate 28 H 17 Blood Pressure 159/98 H Pulse Oximetry 99 99 Oxygen Delivery Method Room Air Oxygen Flow Rate MDM - Extremity Injury (Lower) Lab Data 02/24/23 19:07 02/24/23 19:07 Labs: Lab Results 02/24/23 02/24/23 Range/Units 19:07 19:07 WBC 7.8 (4.5-11.0) X10^3/uL RBC 3.53 L (4.5-5.9) X10^6/uL Hgb 13.0 L (13.5-17.5) g/dL Hct 36.7 L (41-53) % MCV 103.9 H (80-100) fL MCH 36.9 H (26-34) PG MCHC 35.5 (30-36) % RDW 13.9 (11.6-14.8) % Plt Count 166 (150-400) X10^3/uL Neut % (Auto) 75.0 (50-75) % Lymph % (Auto) 12.9 L (25-40) % [place] % (Auto) 10.2 (3-14) % Eos % (Auto) 1.1 L (2-4) % Baso % (Auto) 0.8 (0-2) % Neut # (Auto) 5800 (2518-2653) /uL Lymph # (Auto) 1000 L (2530-8652) /uL [place] # (Auto) 800 (0-900) /uL Eos # (Auto) 100 (0-450) /uL Baso # (Auto) 100 (0-100) /uL Sodium 133 L (137-145) mmol/L Potassium 3.8 (3.4-5.1) mmol/L Chloride 100 (98-107) mmol/L Carbon Dioxide 28 (22-32) mmol/L BUN 13 (9-20) mg/dL Creatinine 0.72 (0.66-1.25) mg/dL Estimated GFR > 60 (>60) mL/min BUN/Creatinine Ratio 18.1 (6-22) Glucose 97 (70-100) mg/dL Calcium 9.1 (8.4-10.2) mg/dL Total Bilirubin 0.7 (0.2-1.3) mg/dL AST 26 (17-59) IU/L ALT 20 (<50) IU/L Alkaline Phosphatase 71 (38-126) U/L Total Protein 7.4 (6.3-8.2) g/dL Albumin 4.2 (3.5-5.0) g/dL Globulin 3.2 (1.7-4.1) g/dL Albumin/Globulin Ratio 1.3 (1.0-2.8) [facility] Narrative Medical decision making narrative: CC: Lisfranc fracture right foot, acute issue uncertain prognosis Complicating co-morbidities: Poorly aligned, presents to the ER for reduction Data collected from: patient, Differential considered: Fracture, infection Exam documented above, pertinent findings include: Edema over the dorsum of the foot, bulla developing because of the edema, moderate ecchymosis Discussion: 52-year-old gentleman with right Lisfranc fracture seen and initially evaluated at outside emergency department, to schedule with Orthopedics. X-rays reviewed by orthopedist today and she requested that the patient come to the emergency department for sedation and better reduction/alignment of the fracture to aid in overall healing and swelling so surgical intervention can occur sooner. Patient is evaluated. Procedural sedation as above. Reduction with Dr. Nair at bedside. Sedation went well. Reduction was moderately improved. The bulla were drained and Xeroform gauze was placed over them prior to replacing the splint. Pain was adequately controlled and patient is discharged home. Discharge Plan Departure Patient Disposition: Home Clinical Impression: Lisfranc fracture Instructions: DI for Foot Fracture Activity Restrictions/Additional Instructions: Thank you for coming in today I am sorry that you are suffering with so much pain. We were able to get the bones slightly better aligned, they still are not perfect and once the swelling is down you are going to need surgery. Swelling and spasm is going to continue to be painful for you. Please keep the foot elevated as much as you are able to, ice to the outside of the splint can be helpful. Using 400 mg of ibuprofen (2 [id number] pills) and 1 Tylenol every 6 hours can be very helpful in controlling moderate pain. For severe pain you can use 400 mg of ibuprofen and 1-2 Percocet. Please make sure that you are using MiraLax or additional stool softeners any days that you are using narcotics. They will make you constipated. Additional Percocet prescription has been electronically transmitted to [facility] Please expect a phone call from Dr. Nair's office to set up follow-up appointment. When we took the splint off your foot, there was so much swelling that there was a bit of blistering. The liquid was drained out of the blister and a dressing was applied prior to replacing the splint. If it is hurting more, you are developing a fever or you notice any redness at all you do need to undo part of the splint and look at the skin to make sure there is not infection I wish you the very best Prescriptions: New oxycodone-acetaminophen 5-325 mg tablet 1 tab PO Q6H PRN (Reason: pain) Qty: 20 0RF No Action losartan 50 mg tablet 50 mg PO DAILY Qty: 90 3RF Referrals: Arnold Zhong, [Primary Care Provider] - Stand Alone Forms: Patient Portal/API
[2023-02-24] MEDS: propofoL 200 MG/20 ML VIAL IV ×2 (20:28→20:50)
--- NOTE | 2023-02-24 20:52 | DI.CT.S_ITS ---
PROCEDURE: CT LE RT WO CON INDICATIONS: pre op TECHNIQUE: Noncontrast 1-1.5 mm axial sections acquired from above the tibiotalar joint to the bottom of the calcaneus, with coronal and sagittal reformats. COMPARISON: [facility], CR, XR FOOT RT MIN 3V, 02/24/2023, 18:58. [facility], CR, XR FOOT 3+ VIEWS RIGHT, 02/22/2023, 17:36. FINDINGS: Image quality: Excellent. Bones: There is lateral subluxation of the 1st, 2nd, 3rd, and 4th tarsometatarsal joints. There may also be slight lateral subluxation of the 5th tarsometatarsal joint. There are comminuted plantar fractures at the base of the 2nd metatarsal. There are also milder fractures of the distal medial, middle, and lateral cuneiform bones as well as the distal plantar aspect of the cuboid along the tarsometatarsal joints. There is a comminuted fracture of the lateral sesamoid. Soft tissues: There is periarticular soft tissue swelling along the dorsal aspect of the midfoot as well as the dorsal lateral aspect of the ankle. There is severe fatty atrophy of the visualized foot musculature. The flexor, extensor, peroneal, and Achilles tendons appear intact. IMPRESSION: 1. Lateral subluxation of the tarsometatarsal joints as well as multiple midfoot fractures as described. Findings are consistent with Lisfranc fracture-dislocations. 2. Severe fatty atrophy of the foot musculature most prominent in the forefoot. Dictated by: Joe Smith M.D. on 02/24/2023 at 22:26 Approved by: Joe Smith M.D. on 02/24/2023 at 22:35
--- NOTE | 2023-02-24 21:15 | P.CONS_ITS ---
History of Present Illness Consult details Date Patient Seen: 02/24/23 Time Patient Seen: 21:16 Chief complaint: Broken Toes per pt, needs bones alignedper hisdr Reason for consult: Lisfranc fracture dislocation Requesting provider: Ingrid Macario Narrative: The patient is a 52-year-old male that sustained an injury to his right foot when he was moving a large piece of furniture he twisted his foot and then the piece of furniture also landed on his foot several times. He had pain and swelling. He was seen at [facility] ER in [place] where an x-ray was taken and he was told they did not do reductions and was told to follow-up and sees someone for surgery within 3 days. Patient called my office today I was just able to view x-rays this evening this demonstrated a grossly displaced Lisfranc tarsometatarsal fracture dislocation. Recommended the patient come to the ER at the late hour for attempted closed reduction to help with soft tissue tension and pain and alignment facilitate reduced swelling prior to definitive procedures. He endorses pain he has been nonweightbearing. The injury was on 02/22/2023 Meds Home Medications and Allergies Home Medications Medication Instructions Recorded Confirmed Type losartan 50 mg tablet 50 mg PO DAILY blood pressure #90 07/16/22 07/16/22 Rx tabs Allergies Allergy/AdvReac Type Severity Reaction Status Date / Time No Known Drug Allergies Allergy Verified 07/16/22 09:30 Review of Systems Review of Systems ROS: Yes All systems reviewed with the patient and are negative except as otherwise documented Exam Vital Signs (past 8 hours): - 02/24/23 18:42 02/24/23 19:01 02/24/23 19:02 Temperature 97.1 F L Pulse Rate 118 H 115 H Respiratory Rate 18 Blood Pressure 134/99 H Pulse Oximetry 98 96 Oxygen Delivery Method Room Air Oxygen Flow Rate 02/24/23 19:02 02/24/23 19:30 02/24/23 19:30 Temperature Pulse Rate 114 H 102 H Respiratory Rate Blood Pressure 136/86 Pulse Oximetry 98 93 Oxygen Delivery Method Oxygen Flow Rate 02/24/23 19:50 02/24/23 19:50 02/24/23 19:52 Temperature Pulse Rate 103 H 104 H Respiratory Rate Blood Pressure 161/105 H Pulse Oximetry 95 95 Oxygen Delivery Method Oxygen Flow Rate 02/24/23 19:52 02/24/23 19:55 02/24/23 19:55 Temperature Pulse Rate 98 H Respiratory Rate Blood Pressure 154/93 H 141/95 H Pulse Oximetry 96 Oxygen Delivery Method Oxygen Flow Rate 02/24/23 20:00 02/24/23 20:00 02/24/23 20:05 Temperature Pulse Rate 101 H 104 H Respiratory Rate Blood Pressure 151/96 H Pulse Oximetry 96 95 Oxygen Delivery Method Oxygen Flow Rate 02/24/23 20:05 02/24/23 20:10 02/24/23 20:10 Temperature Pulse Rate 104 H Respiratory Rate Blood Pressure 148/98 H 150/103 H Pulse Oximetry 99 Oxygen Delivery Method Oxygen Flow Rate 02/24/23 20:15 02/24/23 20:15 02/24/23 20:20 Temperature Pulse Rate 99 H 97 H Respiratory Rate Blood Pressure 136/89 Pulse Oximetry 95 96 Oxygen Delivery Method Oxygen Flow Rate 02/24/23 20:20 02/24/23 20:25 02/24/23 20:25 Temperature Pulse Rate 100 H Respiratory Rate Blood Pressure 132/89 145/93 H Pulse Oximetry 94 Oxygen Delivery Method Oxygen Flow Rate 02/24/23 20:28 02/24/23 20:28 02/24/23 20:30 Temperature Pulse Rate 96 H Respiratory Rate Blood Pressure 150/95 H 138/94 H Pulse Oximetry 96 Oxygen Delivery Method Oxygen Flow Rate 02/24/23 20:30 02/24/23 20:35 02/24/23 20:35 Temperature Pulse Rate 115 H Respiratory Rate 24 Blood Pressure 143/96 H Pulse Oximetry 93 93 Oxygen Delivery Method Oxygen Flow Rate 02/24/23 20:40 02/24/23 20:40 02/24/23 20:45 Temperature Pulse Rate 113 H 112 H Respiratory Rate 20 27 H Blood Pressure 147/102 H Pulse Oximetry 93 99 Oxygen Delivery Method Nasal Cannula Oxygen Flow Rate 5 02/24/23 20:45 02/24/23 20:48 02/24/23 20:50 Temperature Pulse Rate 119 H 123 H Respiratory Rate 24 21 Blood Pressure 158/78 H Pulse Oximetry 97 98 Oxygen Delivery Method Room Air Oxygen Flow Rate 02/24/23 20:50 02/24/23 20:55 02/24/23 20:55 Temperature Pulse Rate 116 H Respiratory Rate 27 H Blood Pressure 170/98 H 166/90 H Pulse Oximetry 99 Oxygen Delivery Method Oxygen Flow Rate 02/24/23 21:00 02/24/23 21:01 02/24/23 21:01 Temperature Pulse Rate 118 H 112 H Respiratory Rate 28 H 17 Blood Pressure 159/98 H Pulse Oximetry 99 99 Oxygen Delivery Method Room Air Oxygen Flow Rate Oxygen Delivery Method Room Air Oxygen Flow Rate 5 Narrative Exam Narrative: Alert oriented male no acute distress lying in bed. Heart regular rate and rhythm Lungs clear to auscultation bilaterally Vital signs stable. Right lower extremity demonstrates swelling and at the tarsometatarsal joints where step-off at the knee. There are serous blisters over the 3rd 4th MTP areas. There is plantar ecchymosis and global swelling and absence of skin wrinkles consistent with tarsometatarsal fracture dislocation. Calf is soft. Wiggles toes slightly. Tenderness around the midfoot. Objective Imaging X-ray three views right foot: My impression: AP, lateral, oblique views right foot, Right Lisfranc fracture dislocation appear homolateral gross displacement translation lateral and dorsal Radiologist's impression: IMPRESSION:??Lisfranc?fractures/dislocations.??Alignment?appears?unchanged?since ?the?last?exam.??Bone?details?are?obscured?by?overlying?cast.?? Dictated?by:?Sisi?Breanna?Kisha.José Miguel?on?02/24/2023?at?19:39? Labs 02/24/23 19:07 02/24/23 19:07 Labs: Laboratory Results - last 24 hr 02/24/23 02/24/23 19:07 19:07 WBC 7.8 RBC 3.53 L Hgb 13.0 L Hct 36.7 L MCV 103.9 H MCH 36.9 H MCHC 35.5 RDW 13.9 Plt Count 166 Neut % (Auto) 75.0 Lymph % (Auto) 12.9 L [place] % (Auto) 10.2 Eos % (Auto) 1.1 L Baso % (Auto) 0.8 Neut # (Auto) 5800 Lymph # (Auto) 1000 L [place] # (Auto) 800 Eos # (Auto) 100 Baso # (Auto) 100 Sodium 133 L Potassium 3.8 Chloride 100 Carbon Dioxide 28 BUN 13 Creatinine 0.72 Estimated GFR > 60 BUN/Creatinine Ratio 18.1 Glucose 97 Calcium 9.1 Total Bilirubin 0.7 AST 26 ALT 20 Alkaline Phosphatase 71 Total Protein 7.4 Albumin 4.2 Globulin 3.2 Albumin/Globulin Ratio 1.3 PFSH Medical History Ankle pain (~2019) Anxiety and depression (~2017) Benign essential HTN Headache (~2017) Nondisplaced fracture of navicular [scaphoid] of right foot, initial encounter for closed fracture Preventative health care Tobacco abuse counseling Wears glasses Family History Father Hypertension Mental health problem Mother Cancer Hypertension Hyperlipidemia Social History household members: spouse Tobacco & Substance Use Smoking Status: Current every day smoker Tobacco: How many years used: 25 quit status: considering quitting second hand exposure: Yes alcohol intake: former substance use type: does not use and former substance user Assessment & Plan Assessment and plan (1) Lisfranc fracture: Status: Acute Plan Patient has a right Lisfranc fracture dislocation appears to be homolateral dislocation. Recommended for closed reduction attempt tonight. Closed reduction was attempted under conscious sedation in the emergency room. Grossly appeared slight the improved after closed reduction attempt. Will obtain CT scan for surgical planning. We will go into well-padded splint. Serous blisters will be decompressed and Xeroform placed on these. We will follow up in my clinic in about 1 week. Discussed based on swelling surgery would not be at least until the end of next week and may require additional time so we will see him next week for a skin check and to go over surgical details were planning if skin is appropriate that time we tried to do surgery on the 07 of March if not potentially March 14 or longer if needed due to soft tissue integrity as this will be the most important factor of surgical timing. Recommend elevation heart level or above as much as possible. Time Spent With Patient Time with patient: 30 to 49 minutes with 50% spent counseling/coordinating care
--- NOTE | 2023-02-24 21:15 | PC.NURSE ---
2026: Timeout called with Joanie DUARTE, MD Renaldo, Derrick RT and Katarina RN Propofol administered by provider Renaldo DUARTE as follows: 2027: 60 mg IVP 2029: pt still sitting upright, speaking, 20 mg IVP 2030: pt reaching for foot, 20 mg IVP 2030: pt moving all extremities in response to painful stimuli, 40 mg IVP given 2033: MD Joanie manipulating foot. Pt restless. 60 mg IVP 2037: Pt conscious, sitting up and reaching for foot. Propofol 100 mg IVP given 2042: Procedure complete. Pt A&Ox4.
[2023-02-24] MEDS: OXYCODONE/APAP 5/325 PREPACK 1 BOTTLE MISC (22:38)
[2023-02-24] MEDS: OXYCODONE/ACETAMINOPHEN 5/325 TABLET 2 TAB PO (22:38)
== END 2023-02-24 22:45 | disposition home or self-care (01) ==
PROVIDERS: Emergency Provider Emergency Medicine; PCP Family Medicine
DX: S92.811A Other fracture of right foot, initial encounter for closed fracture (principal); X58.XXXA Exposure to other specified factors, initial encounter
CPT/HCPCS: 28515; 36415; 73630; 73700; 80053; 85025; 96374; 96375; 96376; 99152; 99284; 99285; J1170; J2405; J2704

== ENCOUNTER 2023-02-28 14:10 | Day surgery (SDC) | payer OTHER, MEDICAID, SELFPAY ==
[2022-06-06 17:47] VITALS: BMI 28.2
[2023-02-28] VITALS (8 sets, daily range): BP systolic 138–171; BP diastolic 88–111; PULSE 91–117; RESP 12–21; TEMP 36.4; O2SAT 91–100; BMI 28.2
--- NOTE | 2023-02-28 | DI.RAD.S_ITS ---
PROCEDURE: XR FOOT RT 2V INDICATIONS: PERCUTANEOUS PINNING TECHNIQUE: 11 views of the foot were acquired. COMPARISON: [facility], CT, CT LE RT WO CON, 02/24/2023, 21:15. [facility], CR, XR FOOT RT MIN 3V, 02/24/2023, 18:58. FINDINGS: Multiple intraoperative fluoroscopic views of the right foot demonstrate open reduction and internal fixation of the previously described fracture-subluxation in the right midfoot. IMPRESSION: 1. Multiple intraoperative fluoroscopic views demonstrate ORIF of right midfoot fracture-subluxation. Dictated by: Joe Smith M.D. on 03/01/2023 at 3:14 Approved by: Joe Smith M.D. on 03/01/2023 at 3:15
[2023-02-28] MEDS: LACTATED RINGERS 1,000 ML 42 ML IV ×2 (17:41→21:38)
--- NOTE | 2023-02-28 19:36 | PM.PREOP ---
Pre-operative Note Interval Note History & Physical reviewed/Exam performed by Physician: Yes Changes to H&P: No H&P completed within 30 days and has changed as indicated here:: No changes since H&P consult performed on 02/24/2023. Lungs clear to auscultation heart regular rate and rhythm. Notes history of great toe and sesamoid fracture previous to the recent injury.
[2023-02-28] MEDS: MIDAZOLAM 2 MG/2 ML VIAL IV (19:47)
[2023-02-28] MEDS: fentaNYL 100 MCG/2 ML INJ IV (19:47)
--- NOTE | 2023-02-28 19:48 | SUR.PREOP ---
Time out performed prior to placement of nerve block by IONA Hook.
--- NOTE | 2023-02-28 19:56 | SUR.PREOP ---
Block start time [0800] . Monitoring initiated and maintained throughout procedure. Oxygen and medications given per anesthesiologist instructions. Patient remained stable throughout procedure, no adverse reactions noted. Block end time [].
--- NOTE | 2023-02-28 20:08 | SUR.PREOP ---
Block start time [1730] . Monitoring initiated and maintained throughout procedure. Oxygen and medications given per anesthesiologist instructions. Patient remained stable throughout procedure, no adverse reactions noted. Block end time [2007].
[2023-02-28] MEDS: CEFAZOLIN 2 GM/100 ML PREMIX 100 ML IV (20:44)
--- NOTE | 2023-02-28 20:55 | SUR.OPER ---
Supine on padded OR bed, head on pillow, arms secured on padded arm boards at <90 degrees abduction, legs uncrossed, safety belt at thigh, tape over blanket over lower left leg. Witten bump under right flank
--- NOTE | 2023-02-28 21:11 | PM.PNB.1 ---
Peripheral Nerve Block Note Pre-Procedure Reason for block: Attending surgeon request/order for post-op pain management Pre-procedure checklist: Patient examined and chart reviewed, Risks, benefits, alternatives of block discussed, questions answered, Verification of anti-coagulation status, Site confirmed, Timeout performed and Standard ASA monitors applied Consent obtained from: Patient Procedure Date of procedure: 02/28/23 Start Time: 19:55 End Time: 20:05 Performed by: Mary Hook Sedation - enter dose in comment field: IV Midazolam (mg) (2mg) and IV Fentanyl (mcg) (100mcg) Location: Pre-Op Position: Lateral (left) Laterality: Right Sterile Technique: Sterile barrier maintained, Sterile gloves, Mask, Sterile drapes, U/S probe cover and Chloraprep Skin Wheal: Lidocaine 1% mL: 1 Gauge: 25 Equipment Single injection - Needle brand, gauge, length: PaRegalBoxk sonoplex stim needle 21g x 100mm Medications Medications - enter concentration (%) & mL in comment field: Ropivacaine (0.5% 20ml) Incremental aspiration prior to injection: Yes (q5 ml) Ultrasound Reason for Ultrasound: U/S guidance used for needle placement and U/S used to visualize spread of anesthetic Image printed/saved/archived: Yes Limited exam reveals no abnormal findings: Yes Vital signs VS: - 02/28/23 17:52 02/28/23 19:42 Temperature 97.6 F Pulse Rate 102 H 96 H Respiratory Rate 16 18 Blood Pressure 160/108 H 162/93 H Pulse Oximetry 96 100 Oxygen Delivery Method Room Air Nasal Cannula Oxygen Flow Rate 2 Oxygen Delivery Method Nasal Cannula Oxygen Flow Rate 2 Events Nerve Block Events: Procedure uneventful Complications/Explanation for PNB under General anesthetic: Patient with no pain postoperatively and tolerated block without complaints.
[2023-02-28] MEDS: BUPIVACAINE 0.25% W/ EPI (PF) 10 ML VIAL 20 ML INJ (21:56)
--- NOTE | 2023-02-28 22:19 | P.OP_ITS ---
Operative Date/Time/Diagnoses Date of procedure: 02/28/23 Time of procedure: 22:20 Pre-op diagnosis: Complete right tarsometatarsal fracture dislocation, Lisfranc fracture dislocation s [phone] Post-op diagnosis: same Procedure & Clinicians Procedure: External fixation tarsometatarsal dislocation CPT code 54864, right Closed reduction percutaneous pinning tarsometatarsal joints CPT code 96749-43--2wj TMT Closed reduction percutaneous pinning tarsometatarsal joints CPT code 57484-61--7jr TMT Same procedure as scheduled: Yes Indications: Patient is a 52-year-old male that sustained a complete Hohmann longus Lisfranc fracture dislocation on 02/22/2023 he was seen at an outside hospital (a [facility]) and discharged. And told to find follow-up. He called my office. X-rays were reviewed that demonstrated the complete Humalog as Lisfranc fracture dislocation. Attempted closed reduction in the emergency room [facility] that did not improve alignment and was indicated for external fixation and percutaneous pinning to improve alignment and allow his soft tissues to resolve. Patient is aware he will require definitive fixation which will be a midfoot fusion once his skin is appropriate. He has been counseled on the severity of his injury. He also mentioned that his great toe sesamoid fracture is an old injury. The risks and benefits of the procedure have been discussed with the patient and given the opportunity to ask questions. The risks of surgery include but are not limited to infection, malunion, nonunion, persistence of pain, damage to nerves and blood vessels, posttraumatic arthritis, DVT, PE, cardiopulmonary complications and . The patient expressed a thorough understanding of the risks and benefits of surgery and has elected to proceed. Consent was signed. Surgeon: Arlen Nair Click Yes if Unassisted: Yes Anesthesia Type: General, Peripheral nerve block and Local Operative Notes Findings: Complete Lisfranc fracture dislocation involving the 1st 2nd 3rd and 4th and 5th TMT joints. Highly comminuted fracture fragments including highly comminuted middle cuneiform and separate bony fragments within the Lisfranc interval between the 1st and 2nd metatarsal bases. Closure Type: primary Specimen(s): none sent Prosthetic devices, grafts, tissues, transplants, or devices: Arthrex small external fixator. 2 x3.0 pins in the calcaneus, 2x 3.0 pins in the 1st metatarsal 062x K-wires x2 across 3rd and 4th TMT Estimated Blood Loss (mL): 5 Blood products transfused: none Tourniquet time (min): 0 Procedure in detail: Patient was seen in the preoperative area the site of surgery marked informed consent confirmed. The patient underwent a block by the anesthesia team for postoperative pain control. Patient was brought to the operating room and positioned supine. All bony prominences well padded. A well-padded thigh tourniquet was placed but not elevated. The right lower extremity was prepped and draped in standard sterile fashion. A formal Formal time-out procedure was performed confirming the patient's side and site of surgery administration of preoperative antibiotics. All were in agreement Attention was turned to the right lower extremity C-arm was brought in tarsometatarsal joints were marked out. There was lateral displacement of the 2nd 3rd 4th and 5th metatarsals proximally 1 bone width lateral. For instance the 1st metatarsal lined up with the middle cuneiform not the medial cuneiform. There was also dorsal dislocation and impaction of the 2nd and 3rd metatarsal bases on the middle and lateral cuneiforms. Attempted closed reduction was made this did not budge therefore small poke hole was made over the 2nd metatarsal base and a [place] elevator manipulated into the space between the 2nd metatarsal base and it is dislocated area at the lateral cuneiform to try to lever this over. This was not successful so the pins for the ex fix were placed into the medial calcaneus and into the 1st metatarsal to use as a distracting force. Then sequentially using traction and [place] and strong elevator pressure through the dorsal poke hole incision the metatarsals were manipulated partially reducing the Lisfranc fracture dislocation. This was not able to be completely reduced due to an interposed bone fragment at the Lisfranc interval but alignment was significantly improved from preop. This point the external fixator was tightened x-rays AP lateral planes confirmed improved alignment. Axial plane images confirmed appropriate placement of the calcaneal pins. Additional 6 2 K-wires were placed percutaneously for additional stabilization along the 3rd and 4th tarsometatarsals. Poke hole incisions dorsally were closed with nylon suture the pin sites were bolstered. Lateral pins were cut bent and capped. Dressings were placed with Xeroform gauze Kerlix and a splint. Fluff gauze was used additionally. 10 cc of local anesthetic was also administered. Once the dressings were completed drapes removed the patient was woken from anesthesia and taken to the recovery room in good condition. There no immediate complications. Counts were correct. Complications: none Post-operative Condition: stable Disposition: PACU Plan for aftercare: Nonweightbearing right lower extremity. Elevate heart level or above as much as possible for the next few weeks. Will start DVT prophylaxis with Lovenox postoperative day 1. We will follow up in clinic next week for a progress check. Anticipate external fixation 2-4 weeks prior to definitive fusion surgery. This will be a staged operation due to the severity of the patient's injury and requirement for soft tissue resolution before definitive fusion surgery. Patient was previous issues prescriptions for Zofran and oxycodone.. Keep the splint clean and dry
--- NOTE | 2023-02-28 22:44 | SUR.PHASEI ---
Block start time [2244] . Monitoring initiated and maintained throughout procedure. Oxygen and medications given per anesthesiologist instructions. Patient remained stable throughout procedure, no adverse reactions noted. Block end time [2252].
--- NOTE | 2023-02-28 23:00 | PM.PNB.1 ---
Peripheral Nerve Block Note Pre-Procedure Reason for block: Attending surgeon request/order for post-op pain management Pre-procedure checklist: Patient examined and chart reviewed, Risks, benefits, alternatives of block discussed, questions answered, Site confirmed, Timeout performed and Standard ASA monitors applied Consent obtained from: Patient Procedure Date of procedure: 02/28/23 Start Time: 22:24 End Time: 22:52 Performed by: Mary Hook Sedation - enter dose in comment field: IV Fentanyl (mcg) (50mcg) Location: PACU Position: Lateral (left lateral decubitus) Laterality: Right Sterile Technique: Sterile barrier maintained, Sterile gloves, Mask, Sterile drapes, U/S probe cover and Chloraprep Skin Wheal: Lidocaine 1% mL: 1.5 Gauge: 21 Equipment Single injection - Needle brand, gauge, length: Proginet 21g x 100mm Medications Medications - enter concentration (%) & mL in comment field: Ropivacaine (15 ml) Incremental aspiration prior to injection: Yes (Q 5 ml) Ultrasound Reason for Ultrasound: U/S guidance used for needle placement and U/S used to visualize spread of anesthetic Image printed/saved/archived: No Limited exam reveals no abnormal findings: Yes Vital signs VS: - 02/28/23 17:52 02/28/23 19:42 02/28/23 22:13 Temperature 97.6 F 97.6 F Pulse Rate 102 H 96 H 117 H Respiratory Rate 16 18 16 Blood Pressure 160/108 H 162/93 H 155/104 H Pulse Oximetry 96 100 91 Oxygen Delivery Method Room Air Nasal Cannula Room Air Oxygen Flow Rate 2 02/28/23 22:18 02/28/23 22:23 02/28/23 22:30 Temperature Pulse Rate 110 H 110 H 114 H Respiratory Rate 16 21 18 Blood Pressure 153/88 H 167/111 H 171/106 H Pulse Oximetry 92 93 94 Oxygen Delivery Method Room Air Room Air Room Air Oxygen Flow Rate 02/28/23 22:55 Temperature Pulse Rate 98 H Respiratory Rate 15 Blood Pressure 152/106 H Pulse Oximetry 96 Oxygen Delivery Method Room Air Oxygen Flow Rate Oxygen Delivery Method Room Air Oxygen Flow Rate 2 Events Nerve Block Events: Procedure uneventful Complications/Explanation for PNB under General anesthetic: Patient tolerated procedure without complaints. First block 10 ml injected deep to nerves so block repeated. Patient initially comfortable then complaining of burning pain in foot. 2310 pain now diminishing.
[2023-02-28] MEDS: OXYCODONE/ACETAMINOPHEN 5/325 TABLET 1 TAB PO (23:12)
== END 2023-02-28 23:38 | disposition home or self-care (01) ==
PROVIDERS: PCP Family Medicine; Referring Provider Orthopaedic Surgery Foot and Ankle Surgery; Visit Provider Orthopaedic Surgery Foot and Ankle Surgery
PROC: (CPT 28485; principal; 2023-02-28 16:00)
DX: S93.324A Dislocation of tarsometatarsal joint of right foot, initial encounter (principal); S92.241A Displaced fracture of medial cuneiform of right foot, initial encounter for closed fracture; W20.8XXA Other cause of strike by thrown, projected or falling object, initial encounter; G89.18 Other acute postprocedural pain
CPT/HCPCS: 28615; 28606 ×2; 64450; 73620; 76000; J0330; J0690; J1100; J2250; J2405; J2704; J3010

== ENCOUNTER 2023-03-21 08:54 | Day surgery (SDC) | payer OTHER, MEDICAID, SELFPAY ==
[2022-06-06 17:47] VITALS: BMI 28.2
[2023-03-14 16:06] VITALS: BMI 28.2
--- NOTE | 2023-03-21 | DI.RAD.S_ITS ---
PROCEDURE: XR FOOT RT 2V INDICATIONS: RT FOOT SURGERY TECHNIQUE: 5 digital acquisition views of the foot were acquired. COMPARISON: [facility], CR, XR FOOT RT 2V, 02/28/2023, 20:54. [facility], CR, XR FOOT RT MIN 3V, 02/24/2023, 18:58. FINDINGS: Bones: No fractures, dislocations, or unexpected malalignment identified. There is expected postsurgical change of 1st through 3rd tarsal-metatarsal fusion procedures with screws and fixation plates in expected alignment. There is an additional finding of 2 lateral K-wires crossing the lateral tarsal-metatarsal articulation, which shows normal alignment. No suspicious bony lesions. Soft tissues: No tibiotalar joint effusion. Achilles tendon appears normal. IMPRESSION: Expected postoperative alignment after complex surgical intervention at the tarsal-metatarsal region of the right midfoot. Dictated by: Abhishek Jaeger M.D. on 03/21/2023 at 15:25 Approved by: Abhishek Jaeger M.D. on 03/21/2023 at 15:28
[2023-03-21 09:14] VITALS: BP 140/101; PULSE 97; RESP 24; TEMP 36.6; O2SAT 94; BMI 28.2
[2023-03-21] MEDS: LACTATED RINGERS 1,000 ML 42 ML IV ×2 (09:21→12:37)
[2023-03-21] MEDS: ACETAMINOPHEN 325 MG TABLET 975 MG PO (09:21)
--- NOTE | 2023-03-21 10:46 | PM.PREOP ---
Pre-operative Note Interval Note History & Physical reviewed/Exam performed by Physician: Yes Changes to H&P: No
[2023-03-21] MEDS: CEFAZOLIN 2 GM/100 ML PREMIX 100 ML IV (10:58)
--- NOTE | 2023-03-21 11:36 | SUR.OPER ---
Supine on padded OR bed, head on pillow, arms secured on padded arm boards at <90 degrees abduction, legs uncrossed, safety belt at abdomen, tape over blanket over left lower leg. Right leg on stack of bath blankets and under control of surgeon. Gel bump under right hip
[2023-03-21] MEDS: BUPIVACAINE 0.25% (PF) 30 ML, EPINEPHrine 0.15 MG INJ (11:48)
[2023-03-21 14:24] VITALS: BP 133/86; PULSE 100; RESP 12; O2SAT 92
[2023-03-21 14:29] VITALS: BP 126/99; PULSE 104; RESP 12; O2SAT 96
[2023-03-21 14:30] VITALS: BP 133/86; PULSE 103; RESP 13; TEMP 36.2; O2SAT 92
[2023-03-21 14:34] VITALS: BP 126/99; PULSE 104; RESP 10; O2SAT 96
[2023-03-21 14:39] VITALS: BP 137/87; PULSE 94; RESP 14; O2SAT 94
--- NOTE | 2023-03-21 14:46 | P.OP_ITS ---
Operative Date/Time/Diagnoses Date of procedure: 03/21/23 Time of procedure: 11:00 Pre-op diagnosis: Dislocation tarsometatarsal joints right foot 1st 2nd 3rd 4th and 5th tarsometatarsal joints Post-op diagnosis: same Procedure & Clinicians Procedure: 1. Fusion tarsometatarsal joints 2 were more CPT code 39937, right 2. Open reduction internal fixation Lisfranc CPT code 74477 right 3. Removal external fixation device CPT code 29149 +59 separate site, right foot 4. Closed reduction percutaneous pinning 4th and 5th tarsometatarsal joint CPT code 86861 x2 (2 separate sites) This procedure was performed with a modifier 58 for a staged procedure this was a staged more extensive procedure. First operation was placement of an external fixator. Second operation (today's operation) was removal of the external fixation and a open reduction internal fixation and tarsometatarsal joint fusion involving the 1st 2nd and 3rd tarsometatarsal joints and pinning of the 4th and 5th tarsometatarsal joints During the operation, the services of a physician surgical supplies sterilizer were medically indicated and necessary to provide the exposure of the operative site for the surgical procedure and to maintain the limb in a proper position to carry out the operation safely and efficiently. Without a qualified medical technician assistant being present this would extended the operative procedure and made the procedure technically more difficult to perform. Same procedure as scheduled: Yes Indications: Patient is a 52-year-old male that sustained a complete homologus Lisfranc fracture dislocation of his right foot when he was moving furniture on a stairway helping a friend. He underwent staged spanning external fixation and pinning and is now presenting for definitive open reduction internal fixation and primary fusion for his comminuted severe fracture dislocation. The risks and benefits of the procedure have been discussed with the patient and given the opportunity to ask questions. The risks of surgery include but are not limited to infection, malunion, nonunion, persistence of pain, damage to nerves and blood vessels, posttraumatic arthritis, DVT, PE, cardiopulmonary complications and . The patient expressed a thorough understanding of the risks and benefits of surgery and has elected to proceed. Consent was signed in the office. Surgeon: Arlen Nair Drafting Layout Worker: Henrietta Inamn Anesthesia Type: General, Peripheral nerve block and Local Operative Notes Findings: Complete Lisfranc fracture dislocation involving 1st 2nd and 3rd and 4th and 5th TMT joint laterally displaced. Highly comminuted 2nd metatarsal base fracture The medial spanning external fixator was removed. Tarsometatarsal joints were exposed through plantar medial and dorsal incisions. Fractures were debrided and joint spaces debrided in a reduction maneuver was completed. First 2nd and 3rd tarsometatarsal joints were fused with plates and screws. Fourth and 5th TMT joints were pinned Closure Type: primary Prosthetic devices, grafts, tissues, transplants, or devices: Arthrex plantar Lapidus placed large, right with locking and nonlocking screws. Arthrex 3.0 TMT plate, short x2--these were used for the 2nd and 3rd TMT fusions--locking and nonlocking 3-0 screws One solid 4.0 cancellous screw 2x 062 K-wires across the 4th and 5th TMT joints 5 cc of bone putty Estimated Blood Loss (mL): 50 Blood products transfused: none Tourniquet time (min): 116 Procedure in detail: Patient was seen in the preoperative area the site of surgery was confirmed and marked and the consent confirmed. The patient was brought back to the operating room by the anesthesia team positioned supine on operative table. General anesthesia was administered. A well-padded thigh tourniquet was placed. Ipsilateral bump was placed. Right lower extremity was cleansed. Time-out was performed. The external fixator was removed. The right lower extremity prepped and draped in the standard sterile fashion. A formal time-out procedure was performed confirming the patient's side and site of surgery administration of appropriate preoperative antibiotics. All were in agreement. Esmarch was used for exsanguination and the tourniquet was raised on the thigh to 250 mmHg. Plantar medial incision was made along the plantar border of the 1st metatarsal and medial cuneiform this was taken down through skin subcutaneous tissue. Abductor was carefully peeled off and the 1st TMT joint exposed. There was lateralization of the 1st metatarsal consistent with the lateral fracture dislocation. Separate incision was made in line with the 2nd metatarsal dorsally and carried down through the skin subcutaneous tissues to the level of the 2nd metatarsal and the TMT joints. Due to the lateral dislocation the 2nd metatarsal was initially aligning with the lateral cuneiform. Subperiosteal dissection was taken medial and laterally to expose the middle cuneiform and then laterally to expose the 3rd metatarsal. A K-wire distractor was placed to distract the TMT joints and the fracture dislocations and any remaining cartilage was debrided from the 1st 2nd and 3rd TMT joints. There were additional incarcerated fracture fragments that were removed using a pituitary rongeur. Once the 1st 2nd and 3rd tarsometatarsal joints were prepped this was checked that they could be preliminarily reduced to anatomic position. Once this was completed the joint surfaces were drilled and fenestrated and then the bone putty was placed to help facilitate union. The joints were reduced and held in place with K- wires and a large Ogden clamp. Reduction was checked on intraoperative C-arm and was appropriate. Next a plantar Lapidus plate was placed plantar medially and secured with BB tacks. The plate was secured distally and then the lag screw placed before final tightening the K-wires across the 1st TMT were removed this provided excellent compression. Final screws were placed proximally with the most proximal screw going across the 1st and 2nd cuneiforms. Then attention was turned to the 2nd and 3rd tarsometatarsal joint fusions this was done through the dorsal approach and the 3.0 T-plate from the Arthrex set were used. In similar fashion these joints were prepared with the bone graft and the plates were fixed proximally 1st with olive wires then locking screws and a compression screw placed distally followed by locking screws distally. Multiplanar C-arm fluoroscopy confirmed appropriate alignment of the reduction and hardware placement. Next attention was turned to the 4th and 5th TMT joints. Upon reduction of the 1st 2nd and 3rd TMT joints the 4th and 5th were now aligned anatomically with the borders of the cuboid and these were pinned in place with 062 K-wires in a percutaneous fashion. Once this was completed final fluoroscopic images in AP oblique and lateral planes were obtained confirming appropriate alignment of the hardware. The wounds were irrigated. Tourniquet was released and hemostasis w as achieved. Wounds were closed in a layered fashion with 2-0 Vicryl 4-0 Monocryl and 3-0 nylon suture. Deny sutures were used on the dorsal incision to help reduce tension. An additional Steri-Strips were placed. 20 cc of 0.25% Marcaine with epinephrine was injected for local anesthetic. A sterile dressing with Xeroform gauze Webril,fluffs and Lowry cotton for a bulky splint was applied. Additionally the 062 K-wires had been cut and pin caps placed prior to splint placement. A well-padded posterior and U splint was applied. The patient was woken from anesthesia and taken to the recovery room in good condition there no immediate complications from this procedure. The patient did undergo a postoperative regional block to help postoperative pain control by the anesthesia team. Complications: none Post-operative Condition: stable Disposition: PACU Plan for aftercare: Nonweightbearing x8 weeks. Elevate as much as possible. Follow up in 2-3 weeks for wound check. Sutures may need to stay in place up to 4-6 weeks. K-wires will be retained for 6 weeks and removed in clinic.
== END 2023-03-21 15:17 | disposition home or self-care (01) ==
PROVIDERS: PCP Family Medicine; Referring Provider Orthopaedic Surgery Foot and Ankle Surgery; Visit Provider Orthopaedic Surgery Foot and Ankle Surgery
PROC: (CPT 28615; principal; 2023-03-21 10:15)
PROC: (CPT 28615; 2023-03-21 10:15)
DX: S92.231A Displaced fracture of intermediate cuneiform of right foot, initial encounter for closed fracture (principal); S93.324A Dislocation of tarsometatarsal joint of right foot, initial encounter; S92.321A Displaced fracture of second metatarsal bone, right foot, initial encounter for closed fracture; Y93.89 Activity, other specified; Y92.009 Unspecified place in unspecified non-institutional (private) residence as the place of occurrence of the external cause
CPT/HCPCS: 28615; 28730; 20694; 28606; 73620; 76000; C1713; J0171; J0690; J1170; J2405; J2704; J3010

== ENCOUNTER 2023-03-22 10:35 | Emergency (ER) | payer OTHER, MEDICAID, SELFPAY ==
[2022-06-06 17:47] VITALS: BMI 28.2
[2023-03-22] VITALS (12 sets, daily range): BP systolic 125–157; BP diastolic 77–97; PULSE 104–120; RESP 16–22; O2SAT 92–99; BMI 28.2
[2023-03-22] MEDS: HYDROMORPHONE 1 MG INJ IV ×2 (11:19→12:41)
[2023-03-22] MEDS: ONDANSETRON 4 MG/2 ML INJ IV (11:19)
--- NOTE | 2023-03-22 11:34 | PC.NURSE ---
S/p right foot surgery yesterday, pt c/o intractable severe pain of right foot since approx 0500. Took 10 mg Oxycodone and 15 mg Morphine PO to no effect. Kennedy red blood on dressing under cast. Denies fever or chills. Unable to palpate distal pulse inside cast. Cap refill, sensation, and movement of toes WNL.
--- NOTE | 2023-03-22 12:23 | ED_ITS ---
HPI - Extremity Injury (Lower) General Chief Complaint: Extremity Injury, Lower Stated Complaint: R/foot surgery T-1/pain Time Seen by Provider: 03/22/23 11:12 Source: patient Mode of arrival: Ambulatory Limitations: no limitations History of Present Illness HPI Narrative: 52-year-old male presents status post surgical repair for dislocation tarsometatarsal joints of the right foot 1st through 5th tarsometatarsal tarsal joints. Patient states this is his 3rd procedure he had fusion, open reduction with internal fixation of LisFranc and removal of external fixation device with percutaneous pinning at the 4th and 5th joints. Patient states his spinal wore off last night pain has been increasing. He states he is quite uncomfortable he has been taking oxycodone 5 mg tablets every 4-6 hours. Patient states this is the same amount of pain medication he was taking prior to his surgery. He did have a left overdose of morphine and took a dose of 15 mg morphine. Patient states new numbness or tingling. He states it does feel tight. He states there does seem to be some blood. No fevers, no chest pain or shortness of breath, no passing out, had some nausea last night but no nausea or vomiting today. He has been constipated but had a bowel movement his surgery yesterday none since then. He is passing gas. Denies any other injuries. He states had quite a bit of pain after his other surgeries but not quite to this extent. Surgery was performed here yesterday with Dr. Nair. His last dose of oral pain medication was at 6:30 a.m. in the morning. Patient states normally no other daily prescriptions. No known drug allergies. Patient does use tobacco daily, no alcohol or illicit. Related Data Previous Rx's Medication Instructions Recorded oxycodone-acetaminophen 5 mg-325 1 tab PO Q6H PRN pain #20 tabs 02/24/23 mg tablet enoxaparin 40 mg/0.4 mL 40 mg (0.4 mL) SUBCUT DAILY #4 mL 02/28/23 subcutaneous syringe (Lovenox) gabapentin 300 mg capsule 300 mg PO TID #30 caps 02/28/23 aspirin 325 mg tablet,delayed 325 mg PO DAILY #42 tabs 03/21/23 release ondansetron 4 mg disintegrating 4 mg PO Q8H PRN nausea and 08/11/23 tablet vomiting #7 tabs oxycodone 5 mg tablet 5 mg PO Q4H PRN pain #40 tabs 03/21/23 diazepam 5 mg tablet (Valium) 5 mg PO TID PRN muscle spasm #14 03/22/23 tabs hydromorphone 2 mg tablet 2 mg PO Q4-6H PRN pain #20 tabs 03/22/23 (Dilaudid) oxycodone 5 mg tablet 10 mg PO Q4-6H PRN pain #20 tabs 03/22/23 Allergies Allergy/AdvReac Type Severity Reaction Status Date / Time No Known Drug Allergies Allergy Verified 03/22/23 10:48 Review of Systems Review of Systems ROS Unobtainable: All systems reviewed & are unremarkable except as noted in HPI and below Patient History Medical History Ankle pain (~2019) Anxiety and depression (~2017) Benign essential HTN Headache (~2017) Nondisplaced fracture of navicular [scaphoid] of right foot, initial encounter for closed fracture Preventative health care Tobacco abuse counseling Wears glasses Family History Father Hypertension Mental health problem Mother Cancer Hypertension Hyperlipidemia Social History household members: spouse Smoking Status: Current every day smoker Tobacco: How many years used: 25 quit status: considering quitting second hand exposure: Yes alcohol intake: former substance use type: does not use and former substance user Smoking Status: Current every day smoker alcohol intake frequency: 3 or more drinks per day Substance Use Type: marijuana Exam Narrative Exam Narrative: GENERAL: Alert and oriented x three, well-appearing male in moderate distress. HEENT: Head normocephalic, atraumatic, EOMI, pupils reactive, face symmetric, moist mucous membranes NECK: Supple, full range of motion CARDIOVASCULAR: Regular rate and rhythm without murmurs, rubs or gallops. RESPIRATORY: Breath sounds equal bilaterally, no wheezes rales or rhonchi. ABDOMEN: Soft, nontender. Normoactive bowel sounds all 4 quadrants. No guarding or rebound, rigidity, no mass : No CVA tenderness EXTREMITIES: Normal range of motion of 4 extremities except for his right lower extremity which is in a splint., no clubbing. Slight edema of all 5 toes. Patient has cap refill less than 2 seconds. There is some dried blood on the splint. Neurovascularly intact otherwise. Splint was removed. Patient has swelling over the dorsum of the foot. Tenderness, patient's has sutures in place and wound appears intact but does have some oozing from his surgical incision over the dorsum of the foot. It is slow and appears dark. Patient does have wires protruding which are covered. There is no warmth or erythema. There is some ecchymosis. Patient does not have significant edema of the ankle or upper leg. NEUROLOGICAL: Cranial nerves II through XII grossly intact. Moving all extremities SKIN: Warm, dry, no petechiae, no rashes or lesions. Initial Vital Signs Initial Vital Signs: Vital Signs Pulse Rate 115 H 03/22/23 10:44 Respiratory Rate 20 03/22/23 10:44 Blood Pressure 144/94 H 03/22/23 10:44 Pulse Oximetry 98 03/22/23 10:44 Oxygen Delivery Method Room Air 03/22/23 10:44 Course Orders Ordered: ED Orders 03/22/23 12:31 XR foot RT min 3V Stat Discontinued Medications Diazepam (Diazepam 5 Mg Tablet) 5 mg PO NOW ONE Stop: 03/22/23 14:44 Last Admin: 03/22/23 14:53 Dose: 5 mg Documented By: SHANNAN Hydromorphone HCl (Hydromorphone 1 Mg Inj) 1 mg IV NOW ONE Stop: 03/22/23 11:13 Last Admin: 03/22/23 11:19 Dose: 1 mg Documented By: Hydromorphone HCl (Hydromorphone 1 Mg Inj) 1 mg IV NOW ONE Stop: 03/22/23 12:32 Last Admin: 03/22/23 12:41 Dose: 1 mg Documented By: Hydromorphone HCl (Hydromorphone 0.5 Mg Inj) 0.5 mg IV NOW ONE Stop: 03/22/23 13:11 Last Admin: 03/22/23 13:19 Dose: 0.5 mg Documented By: Hydromorphone HCl (Hydromorphone 2 Mg Tablet) 2 mg PO NOW ONE Stop: 03/22/23 14:44 Last Admin: 03/22/23 14:53 Dose: 2 mg Documented By: SHANNAN Ketorolac Tromethamine (Ketorolac 30 Mg/Ml Vial) 15 mg IV NOW ONE Stop: 03/22/23 14:44 Last Admin: 03/22/23 14:53 Dose: 15 mg Documented By: SHANNAN Naloxone HCl (Naloxone 4 Mg Nasal [place]) 4 mg MISC SEEINSTR ONE Stop: 03/22/23 15:01 Last Admin: 03/22/23 15:20 Dose: 4 mg Documented By: Ondansetron HCl (Ondansetron 4 Mg/2 Ml Inj) 4 mg IV NOW ONE Stop: 03/22/23 11:15 Last Admin: 03/22/23 11:19 Dose: 4 mg Documented By: Oxycodone HCl (Oxycodone Ir 5 Mg Tablet) 10 mg PO NOW ONE Stop: 03/22/23 13:20 Last Admin: 03/22/23 13:25 Dose: 10 mg Documented By: Vital Signs Vital signs: Vital Signs - 8 hr 03/22/23 11:30 03/22/23 11:31 03/22/23 11:31 Pulse Rate 104 H 107 H Respiratory Rate Blood Pressure 129/78 Pulse Oximetry 95 99 Oxygen Delivery Method 03/22/23 12:00 03/22/23 12:00 03/22/23 12:30 Pulse Rate 106 H Respiratory Rate Blood Pressure 141/77 H 152/97 H Pulse Oximetry 94 Oxygen Delivery Method 03/22/23 12:30 03/22/23 13:00 03/22/23 13:22 Pulse Rate 105 H 116 H 120 H Respiratory Rate Blood Pressure Pulse Oximetry 97 96 94 Oxygen Delivery Method 03/22/23 13:22 03/22/23 13:30 03/22/23 13:30 Pulse Rate 113 H Respiratory Rate Blood Pressure 157/81 H 145/82 H Pulse Oximetry 94 Oxygen Delivery Method 03/22/23 14:00 03/22/23 14:00 03/22/23 14:30 Pulse Rate 113 H Respiratory Rate 22 Blood Pressure 135/86 129/80 Pulse Oximetry 97 Oxygen Delivery Method Room Air 03/22/23 14:30 03/22/23 15:00 03/22/23 15:00 Pulse Rate 115 H 112 H Respiratory Rate 16 Blood Pressure 131/81 Pulse Oximetry 92 94 Oxygen Delivery Method Room Air 03/22/23 15:25 Pulse Rate Respiratory Rate Blood Pressure Pulse Oximetry Oxygen Delivery Method Room Air MDM - Extremity Injury (Lower) Imaging Data Extremity x-ray #1: Radiologist's Impression: [address] [address] XRay Report Signed Patient: Armen Tran MR#: [id number] : 1970 Acct:[id number] Age/Sex: 52 / M Date of Service: 03/22/23 Loc: ED Accession Number: [id number] ?? Procedure: XR foot RT min 3V Ordering Provider: Barbara Rodriguez D.O. PROCEDURE:? XR FOOT RT MIN 3V ? INDICATIONS:? s/p foot surgery yesterday, increased pain ? TECHNIQUE:? 3 views of the foot were acquired.? ? COMPARISON:? [facility], CT, CT LE RT WO CON, 02/24/2023, 21:15.? [facility], CR, XR FOOT RT 2V, 03/21/2023, 13:17. ? FINDINGS:? ? Bones:? K-wire fixation of the 5th metatarsal tarsometatarsal joint.? Screw and plate fixation of the 1st through 3rd tarsometatarsal joints. tarsometatarsal joints.? No suspicious bony lesions.? ? Soft tissues:? No tibiotalar joint effusion.? Achilles tendon appears normal.? Soft tissue swelling over the surgical site. ? ? IMPRESSION:? Postsurgical changes of the midfoot without hardware complication identified. ? ? Dictated by: Darron Griffith M.D. on 03/22/2023 at 12:12 ? ? Approved by: Darron Griffith M.D. on 03/22/2023 at 12:18? [facility] Narrative Medical decision making narrative: This is a 52-year-old male who had fracture dislocation of his foot in February, had attempted reduction which was unsuccessful, then had surgical repair which was personally successful and returned yesterday for repeat repair. Patient has had increasing pain since his spinal anesthesia wore off. He is taking oxycodone orally and did take a dose of oral morphine which he had at home. He states he is taking the same regimen of pain medication as before his surgery. He states he has not increased his pain medications. Patient is not have any numbness tingling or paresthesias. She states it does feel sort of tight. There does seem to be some blood on the edge of the splint itself. He has not had any fevers other infectious changes recently. No other systemic symptoms. Patient had improvement with a dose of IV pain medication. Splint was removed. Patient has what appears to be probably a little bit of ooze from the anterior foot but is unlikely source of his pain. Splint was taken down foot was fully examined, does have some tightness but are nontender to touch patient has a lot of pain over the dorsum of the foot. He is not tender in the catheterization but does have some tenderness up just at the ankle. Patient had splint removed in his entirety. Patient's does not appear infected. There is some bruising I do not appreciate changes consistent with compartment syndrome. He does have some persistent ooze from his surgical wound actually appears well approximated but just oozing from the edge. states that he was receiving what sounds like Lovenox regularly prior to surgery and was discharged home on aspirin daily. Patient had moderate improvement of pain but not complete. Spoke with Dr. Finney, orthopedic surgery: Reviewed findings from today, evaluation. Plan for some Surgicel over the wound site which did seem to stop the bleeding. Does not appear to have compartment syndrome. Patient has had difficulty controlling his pain in the past and did not have significant increase in his pain medication changes after discharge. Will increase his breakthrough pain medication. Short term follow up with Orthopedic surgery. Discussed with patient he has been trying to elevate his leg but will try to be more consistent, has had improvement in pain here in the department but not total resolution. Discussed with patient will increase the dosing of his pain medication he is not opiate naive and did not have a significant increase post surgically. He notes the hydroxyzine makes him very twitchy so will pattern changer and repairer to Valium. Patient and I discussed oxycodone regularly but if necessarily can use Dilaudid orally for pain as well as Valium. Patient has had several doses here IV in the department without significant change in mentation. Patient and were encouraged to return if having persistent uncontrolled pain, fevers, persistent bleeding or worsening in any way. Because patient is taking multiple medications that can decreased respirations was given Narcan prepack with instructions. Discharge Plan Departure Patient Disposition: Home Clinical Impression: Post-op bleeding, Post-op pain Activity Restrictions/Additional Instructions: Follow up with Dr. Nair or her partner this week. Call for an appointment You may take Tylenol 1000 mg every 6 hours and ibuprofen 600 mg every 6 hours for pain You can take 2 tablets of oxycodone every 4-6 hours as needed. If this isn't adequate for pain you may take Valium 1 tablet every 6 hours as needed for muscle relaxation/spasm. Do not take the Vistaril/hydroxyzine if it makes you jumpy or twitchy. You can increase your pain medication and take hydromorphone 2 mg every 3-4 hours as needed instead of oxycodone if needed for pain management. These medication can make you sleepy do not drive, perform hazardous activities or make any major decisions while taking it. This medication will make you constipated please take a stool softener once to twice daily until stools are soft and regular. Prescription sent to [facility] in [place]. Please return for fevers, rapidly worsening pain, new numbness, tingling or weakness, loss of sensation, vomiting, persistent bleeding or other new or concerning changes. Prescriptions: New oxycodone 5 mg tablet 10 mg PO Q4-6H PRN (Reason: pain) Qty: 20 0RF hydromorphone [Dilaudid] 2 mg tablet 2 mg PO Q4-6H PRN (Reason: pain) Qty: 20 0RF diazepam [Valium] 5 mg tablet 5 mg PO TID PRN (Reason: muscle spasm) Qty: 14 0RF No Action oxycodone-acetaminophen 5-325 mg tablet 1 tab PO Q6H PRN (Reason: pain) Qty: 20 0RF oxycodone 5 mg tablet 5 mg PO Q4H PRN (Reason: pain) Qty: 40 0RF Rx Instructions: postop exempt ondansetron 4 mg tablet,disintegrating 4 mg PO Q8H PRN (Reason: nausea and vomiting) Qty: 7 0RF aspirin 325 mg tablet,delayed release (DR/EC) 325 mg PO DAILY Qty: 42 0RF Rx Instructions: Start after Lovenox injections have completed enoxaparin [Lovenox] 40 mg/0.4 mL syringe 40 mg SUBCUT DAILY Qty: 4 1RF gabapentin 300 mg capsule 300 mg PO TID Qty: 30 0RF Referrals: Arlen Nair MD [Primary Care Provider] - Stand Alone Forms: Patient Portal/API
--- NOTE | 2023-03-22 12:31 | DI.RAD.S_ITS ---
PROCEDURE: XR FOOT RT MIN 3V INDICATIONS: s/p foot surgery yesterday, increased pain TECHNIQUE: 3 views of the foot were acquired. COMPARISON: [facility], CT, CT LE RT WO CON, 02/24/2023, 21:15. [facility], CR, XR FOOT RT 2V, 03/21/2023, 13:17. FINDINGS: Bones: K-wire fixation of the 5th metatarsal tarsometatarsal joint. Screw and plate fixation of the 1st through 3rd tarsometatarsal joints. tarsometatarsal joints. No suspicious bony lesions. Soft tissues: No tibiotalar joint effusion. Achilles tendon appears normal. Soft tissue swelling over the surgical site. IMPRESSION: Postsurgical changes of the midfoot without hardware complication identified. Dictated by: Darron Griffith M.D. on 03/22/2023 at 12:12 Approved by: Darron Griffith M.D. on 03/22/2023 at 12:18
[2023-03-22] MEDS: HYDROMORPHONE 0.5 MG INJ IV (13:19)
[2023-03-22] MEDS: OXYCODONE IR 5 MG TABLET 10 MG PO (13:25)
[2023-03-22] MEDS: KETOROLAC 30 MG/ML VIAL 15 MG IV (14:53)
[2023-03-22] MEDS: HYDROMORPHONE 2 MG TABLET PO (14:53)
[2023-03-22] MEDS: diazePAM 5 MG TABLET PO (14:53)
[2023-03-22] MEDS: NALOXONE 4 MG NASAL SPRAY MISC (15:20)
== END 2023-03-22 15:25 | disposition home or self-care (01) ==
PROVIDERS: Emergency Provider Emergency Medicine; PCP Orthopaedic Surgery Foot and Ankle Surgery
DX: G89.18 Other acute postprocedural pain (principal)
CPT/HCPCS: 36415; 73630; 96374; 96375; 96376; 99284; A9270; J1170; J1885; J2405

== ENCOUNTER → 2023-05-18 10:45 | Outpatient (CLI) | payer OTHER, MEDICAID, SELFPAY ==
[2022-06-06 17:47] VITALS: BMI 28.2
== END ==
PROVIDERS: PCP Orthopaedic Surgery Foot and Ankle Surgery; Referring Provider Internal Medicine Infectious Disease; Visit Provider Internal Medicine Infectious Disease
DX: M86.9 Osteomyelitis, unspecified (principal)

== ENCOUNTER → 2023-06-26 09:00 | Oncology outpatient (ONC) | payer OTHER, MEDICAID, SELFPAY ==
[2022-06-06 17:47] VITALS: BMI 28.2
[2023-05-16] MEDS: ERTAPENEM 1 GM in SODIUM CHLORIDE 0.9% 100 ML IV (12:17)
[2023-05-17] MEDS: ERTAPENEM 1 GM in SODIUM CHLORIDE 0.9% 100 ML IV (11:03)
[2023-05-18 11:12] VITALS: BP 139/78; PULSE 84; RESP 17; TEMP 36.3; O2SAT 98
[2023-05-18] MEDS: ERTAPENEM 1 GM in SODIUM CHLORIDE 0.9% 100 ML IV (11:16)
--- NOTE | 2023-05-18 12:10 | PC.NURSE ---
1210 ABX infused (reference EMAR). saline and heparin flush completed per protocol.
[2023-05-19 09:17] LABS: Add Manual Diff / Slide Review NO; Basophils Absolute Auto 0 /uL (0-100); Basophils Percent Auto 0.2 % (0-2); Eosinophils Absolute Auto 500 /uL (0-450); Eosinophils Percent Auto 6.2 % (2-4); Hematocrit 40.7 % (41-53); Lymphocytes Absolute Auto 1500 /uL (1100-4500); Lymphocytes Percent Auto 18.5 % (25-40); Mean Corpuscular HGB Conc 34.3 % (30-36); Mean Corpuscular Hemoglobin 32.9 PG (26-34); Mean Corpuscular Volume 95.8 fL (80-100); Monocytes Absolute Auto 500 /uL (0-900); Monocytes Percent Auto 6.8 % (3-14); Neutrophils Absolute Auto 5400 /uL (1500-7000); Neutrophils Percent Auto 68.3 % (50-75); Platelet Count 251 X10^3/uL (150-400); Red Blood Cell Count 4.25 X10^6/uL (4.5-5.9); Red Cell Distribution Width 13.7 % (11.6-14.8); White Blood Cell Count 7.9 X10^3/uL (4.5-11.0)
[2023-05-19] MEDS: ERTAPENEM 1 GM in SODIUM CHLORIDE 0.9% 100 ML IV (09:25)
[2023-05-19 09:28] LABS: Alanine Aminotransferase 17 IU/L (<50); Albumin 4.5 g/dL (3.5-5.0); Albumin Globulin Ratio 1.4 (1.0-2.8); Alkaline Phosphatase 59 U/L (38-126); Aspartate Aminotransferase 23 IU/L (17-59); BUN Creatinine Ratio 23.1 (6-22); Bilirubin Total 0.4 mg/dL (0.2-1.3); Blood Urea Nitrogen 18 mg/dL (9-20); C-Reactive Protein Quant 1.2 mg/dL (<1.0); Calcium 10.1 mg/dL (8.4-10.2); Carbon Dioxide 25 mmol/L (22-32); Chloride 104 mmol/L (98-107); Estimated Glomerular Filt Rate > 60 mL/min (>60); Globulin 3.2 g/dL (1.7-4.1); Glucose 91 mg/dL (70-100); HEMOLYSIS 36 (0-50); Sodium 137 mmol/L (137-145); Total Protein 7.7 g/dL (6.3-8.2)
[2023-05-19 09:58] VITALS: BP 127/91; PULSE 78; RESP 18; TEMP 36.5; O2SAT 96
[2023-05-20 09:11] VITALS: BP 134/88; PULSE 97; RESP 18; TEMP 36.9; O2SAT 98
[2023-05-20] MEDS: ERTAPENEM 1 GM in SODIUM CHLORIDE 0.9% 100 ML IV (09:14)
[2023-05-21 08:56] VITALS: BP 134/88; PULSE 91; RESP 16; TEMP 36.3; O2SAT 98
[2023-05-21] MEDS: ERTAPENEM 1 GM in SODIUM CHLORIDE 0.9% 100 ML IV (09:27)
[2023-05-22 08:47] VITALS: BP 131/83; PULSE 87; RESP 18; TEMP 36.9; O2SAT 98
[2023-05-22] MEDS: ERTAPENEM 1 GM in SODIUM CHLORIDE 0.9% 100 ML IV (09:06)
[2023-05-23] MEDS: ERTAPENEM 1 GM in SODIUM CHLORIDE 0.9% 100 ML IV (11:00)
[2023-05-24 11:08] VITALS: BP 140/85; PULSE 89; RESP 16; TEMP 36.7; O2SAT 97
[2023-05-24] MEDS: ERTAPENEM 1 GM in SODIUM CHLORIDE 0.9% 100 ML IV (11:54)
[2023-05-25 10:34] VITALS: BP 142/91; PULSE 85; RESP 16; TEMP 36.5; O2SAT 98
[2023-05-25] MEDS: ERTAPENEM 1 GM in SODIUM CHLORIDE 0.9% 100 ML IV (10:34)
[2023-05-26 09:01] VITALS: BP 134/96; PULSE 90; RESP 16; TEMP 37.2; O2SAT 97
[2023-05-26 09:02] LABS: Add Manual Diff / Slide Review NO; Basophils Absolute Auto 100 /uL (0-100); Basophils Percent Auto 1.4 % (0-2); Eosinophils Absolute Auto 400 /uL (0-450); Eosinophils Percent Auto 6.5 % (2-4); Hemoglobin 14.2 g/dL (13.5-17.5); Lymphocytes Absolute Auto 1600 /uL (1100-4500); Lymphocytes Percent Auto 22.5 % (25-40); Mean Corpuscular HGB Conc 34.6 % (30-36); Mean Corpuscular Volume 95.4 fL (80-100); Monocytes Absolute Auto 500 /uL (0-900); Monocytes Percent Auto 7.2 % (3-14); Neutrophils Absolute Auto 4300 /uL (1500-7000); Neutrophils Percent Auto 62.4 % (50-75); Platelet Count 270 X10^3/uL (150-400); Red Blood Cell Count 4.29 X10^6/uL (4.5-5.9); White Blood Cell Count 6.9 X10^3/uL (4.5-11.0)
[2023-05-26 09:20] LABS: Alanine Aminotransferase 22 IU/L (<50); Albumin 4.5 g/dL (3.5-5.0); Albumin Globulin Ratio 1.3 (1.0-2.8); Alkaline Phosphatase 61 U/L (38-126); Aspartate Aminotransferase 32 IU/L (17-59); BUN Creatinine Ratio 23.8 (6-22); Bilirubin Total 0.4 mg/dL (0.2-1.3); Blood Urea Nitrogen 19 mg/dL (9-20); C-Reactive Protein Quant 0.9 mg/dL (<1.0); Calcium 9.7 mg/dL (8.4-10.2); Carbon Dioxide 27 mmol/L (22-32); Chloride 103 mmol/L (98-107); Estimated Glomerular Filt Rate > 60 mL/min (>60); Globulin 3.4 g/dL (1.7-4.1); Glucose 104 mg/dL (70-100); HEMOLYSIS 39 (0-50); Potassium 4.7 mmol/L (3.4-5.1); Sodium 137 mmol/L (137-145); Total Protein 7.9 g/dL (6.3-8.2)
[2023-05-26] MEDS: ERTAPENEM 1 GM in SODIUM CHLORIDE 0.9% 100 ML IV (09:26)
[2023-05-27 08:55] VITALS: BP 130/88; PULSE 85; RESP 16; TEMP 37.1; O2SAT 98
[2023-05-27] MEDS: ERTAPENEM 1 GM in SODIUM CHLORIDE 0.9% 100 ML IV (09:12)
[2023-05-28 11:13] VITALS: BP 129/86; PULSE 96; RESP 16; TEMP 37.1; O2SAT 95
[2023-05-28] MEDS: ERTAPENEM 1 GM in SODIUM CHLORIDE 0.9% 100 ML IV (11:19)
[2023-05-29] MEDS: ERTAPENEM 1 GM in SODIUM CHLORIDE 0.9% 100 ML IV (09:07)
[2023-05-29 09:09] LABS: Add Manual Diff / Slide Review NO; Basophils Absolute Auto 0 /uL (0-100); Basophils Percent Auto 0.4 % (0-2); Eosinophils Absolute Auto 400 /uL (0-450); Eosinophils Percent Auto 5.8 % (2-4); Hematocrit 41.5 % (41-53); Hemoglobin 14.2 g/dL (13.5-17.5); Lymphocytes Absolute Auto 1700 /uL (1100-4500); Lymphocytes Percent Auto 24.9 % (25-40); Mean Corpuscular HGB Conc 34.3 % (30-36); Mean Corpuscular Hemoglobin 32.7 PG (26-34); Mean Corpuscular Volume 95.3 fL (80-100); Monocytes Absolute Auto 600 /uL (0-900); Monocytes Percent Auto 8.1 % (3-14); Neutrophils Absolute Auto 4200 /uL (1500-7000); Neutrophils Percent Auto 60.8 % (50-75); Platelet Count 296 X10^3/uL (150-400); Red Blood Cell Count 4.36 X10^6/uL (4.5-5.9); Red Cell Distribution Width 13.9 % (11.6-14.8)
[2023-05-29 09:19] VITALS: BP 141/87; PULSE 81; RESP 16; TEMP 37.1; O2SAT 96
[2023-05-29 09:21] LABS: Alanine Aminotransferase 22 IU/L (<50); Albumin 4.6 g/dL (3.5-5.0); Albumin Globulin Ratio 1.3 (1.0-2.8); Alkaline Phosphatase 79 U/L (38-126); Aspartate Aminotransferase 23 IU/L (17-59); BUN Creatinine Ratio 24.4 (6-22); Bilirubin Total 0.4 mg/dL (0.2-1.3); Blood Urea Nitrogen 22 mg/dL (9-20); C-Reactive Protein Quant 0.7 mg/dL (<1.0); Calcium 10.2 mg/dL (8.4-10.2); Carbon Dioxide 25 mmol/L (22-32); Chloride 102 mmol/L (98-107); Estimated Glomerular Filt Rate > 60 mL/min (>60); Globulin 3.5 g/dL (1.7-4.1); Glucose 113 mg/dL (70-100); HEMOLYSIS 16 (0-50); Potassium 4.9 mmol/L (3.4-5.1); Sodium 137 mmol/L (137-145); Total Protein 8.1 g/dL (6.3-8.2)
[2023-05-30 10:59] VITALS: BP 120/90; PULSE 93; RESP 16; TEMP 36.6; O2SAT 96
[2023-05-30] MEDS: ERTAPENEM 1 GM in SODIUM CHLORIDE 0.9% 100 ML IV (10:59)
--- NOTE | 2023-05-30 11:53 | PC.NURSE ---
Day shift: Pt w/ no complaints today. Tolerated IV antibiotic well. VS WNL. Afebrile and RA 99%. PICC line patent w/ no s/s of infection.
[2023-05-31] MEDS: ERTAPENEM 1 GM in SODIUM CHLORIDE 0.9% 100 ML IV (11:00)
[2023-06-01 11:27] VITALS: BP 118/86; PULSE 90; RESP 18; TEMP 36.6; O2SAT 97
[2023-06-01] MEDS: ERTAPENEM 1 GM in SODIUM CHLORIDE 0.9% 100 ML IV (11:28)
--- NOTE | 2023-06-01 12:11 | PC.NURSE ---
IV site to MARLENE WNBritt. draws back and flushes easily. ABX infused and line flushed per protocol.
[2023-06-02] MEDS: ERTAPENEM 1 GM in SODIUM CHLORIDE 0.9% 100 ML IV (09:26)
[2023-06-02 10:35] LABS: Add Manual Diff / Slide Review NO; Basophils Absolute Auto 100 /uL (0-100); Basophils Percent Auto 1.3 % (0-2); Eosinophils Absolute Auto 300 /uL (0-450); Hematocrit 39.3 % (41-53); Hemoglobin 13.4 g/dL (13.5-17.5); Lymphocytes Absolute Auto 1300 /uL (1100-4500); Lymphocytes Percent Auto 24.5 % (25-40); Mean Corpuscular HGB Conc 34.1 % (30-36); Mean Corpuscular Hemoglobin 32.4 PG (26-34); Mean Corpuscular Volume 94.9 fL (80-100); Monocytes Absolute Auto 400 /uL (0-900); Monocytes Percent Auto 7.7 % (3-14); Neutrophils Absolute Auto 3400 /uL (1500-7000); Neutrophils Percent Auto 61.5 % (50-75); Platelet Count 265 X10^3/uL (150-400); Red Blood Cell Count 4.14 X10^6/uL (4.5-5.9); Red Cell Distribution Width 13.8 % (11.6-14.8); White Blood Cell Count 5.5 X10^3/uL (4.5-11.0)
[2023-06-02 10:46] LABS: Creatine Kinase 41 U/L (55-170)
[2023-06-02 10:50] LABS: Alanine Aminotransferase 21 IU/L (<50); Albumin 4.5 g/dL (3.5-5.0); Albumin Globulin Ratio 1.3 (1.0-2.8); Alkaline Phosphatase 78 U/L (38-126); Aspartate Aminotransferase 24 IU/L (17-59); Bilirubin Total 0.2 mg/dL (0.2-1.3); Blood Urea Nitrogen 21 mg/dL (9-20); C-Reactive Protein Quant 0.8 mg/dL (<1.0); Carbon Dioxide 27 mmol/L (22-32); Chloride 102 mmol/L (98-107); Estimated Glomerular Filt Rate > 60 mL/min (>60); Globulin 3.5 g/dL (1.7-4.1); Glucose 105 mg/dL (70-100); HEMOLYSIS 16 (0-50); Potassium 4.3 mmol/L (3.4-5.1); Sodium 136 mmol/L (137-145)
[2023-06-02 10:56] LABS: Erythrocyte Sedimentation Rate 8 MM/HR (0-15)
--- NOTE | 2023-06-02 11:43 | PC.NURSE ---
This nurse spoke with Dr. Ortega per telephone and obtained a verbal order to run additional labs of ESR, CPK and RANDY (antinuclear antibody). Labs drawn per PICC.
--- NOTE | 2023-06-02 11:54 | PC.NURSE ---
lab results faxed to Dr. Ortega
[2023-06-03 08:57] VITALS: BP 129/91; PULSE 94; RESP 18; TEMP 36.4; O2SAT 98
[2023-06-03] MEDS: ERTAPENEM 1 GM in SODIUM CHLORIDE 0.9% 100 ML IV (09:07)
[2023-06-04] MEDS: ERTAPENEM 1 GM in SODIUM CHLORIDE 0.9% 100 ML IV (08:59)
[2023-06-04 09:01] VITALS: BP 145/90; PULSE 89; RESP 18; TEMP 36.3; O2SAT 98
[2023-06-05] MEDS: ERTAPENEM 1 GM in SODIUM CHLORIDE 0.9% 100 ML IV (09:06)
[2023-06-05 09:10] VITALS: BP 137/97; PULSE 90; RESP 18; TEMP 36.4; O2SAT 98
[2023-06-05 18:38] LABS: ANA Screen, IFA Negative (.)
[2023-06-06] MEDS: ERTAPENEM 1 GM in SODIUM CHLORIDE 0.9% 100 ML IV (11:10)
[2023-06-07 11:22] VITALS: BP 138/92; PULSE 91; RESP 14; TEMP 36.5; O2SAT 97
[2023-06-07] MEDS: ERTAPENEM 1 GM in SODIUM CHLORIDE 0.9% 100 ML IV (11:26)
[2023-06-08 10:52] VITALS: BP 124/89; PULSE 97; RESP 16; TEMP 36.6; O2SAT 97
[2023-06-08] MEDS: ERTAPENEM 1 GM in SODIUM CHLORIDE 0.9% 100 ML IV (10:53)
[2023-06-09] MEDS: ERTAPENEM 1 GM in SODIUM CHLORIDE 0.9% 100 ML IV (09:13)
[2023-06-09 09:18] LABS: Add Manual Diff / Slide Review NO; Basophils Absolute Auto 100 /uL (0-100); Basophils Percent Auto 1.2 % (0-2); Eosinophils Absolute Auto 400 /uL (0-450); Hematocrit 41.7 % (41-53); Hemoglobin 14.2 g/dL (13.5-17.5); Lymphocytes Absolute Auto 1600 /uL (1100-4500); Lymphocytes Percent Auto 21.7 % (25-40); Mean Corpuscular HGB Conc 34.1 % (30-36); Mean Corpuscular Hemoglobin 32.3 PG (26-34); Mean Corpuscular Volume 94.5 fL (80-100); Monocytes Absolute Auto 500 /uL (0-900); Monocytes Percent Auto 6.7 % (3-14); Neutrophils Absolute Auto 4800 /uL (1500-7000); Neutrophils Percent Auto 65.4 % (50-75); Platelet Count 280 X10^3/uL (150-400); Red Blood Cell Count 4.41 X10^6/uL (4.5-5.9); White Blood Cell Count 7.4 X10^3/uL (4.5-11.0)
[2023-06-09 09:32] LABS: Alanine Aminotransferase 23 IU/L (<50); Albumin 4.8 g/dL (3.5-5.0); Albumin Globulin Ratio 1.3 (1.0-2.8); Alkaline Phosphatase 58 U/L (38-126); Aspartate Aminotransferase 37 IU/L (17-59); BUN Creatinine Ratio 20.9 (6-22); Bilirubin Total 0.8 mg/dL (0.2-1.3); Blood Urea Nitrogen 18 mg/dL (9-20); C-Reactive Protein Quant 0.6 mg/dL (<1.0); Calcium 10.1 mg/dL (8.4-10.2); Carbon Dioxide 25 mmol/L (22-32); Chloride 101 mmol/L (98-107); Estimated Glomerular Filt Rate > 60 mL/min (>60); Globulin 3.8 g/dL (1.7-4.1); Glucose 102 mg/dL (70-100); Sodium 135 mmol/L (137-145); Total Protein 8.6 g/dL (6.3-8.2)
[2023-06-09 09:34] LABS: HEMOLYSIS 158 (0-50)
[2023-06-09 09:35] LABS: Potassium 4.9 mmol/L (3.4-5.1)
[2023-06-10 10:37] VITALS: BP 133/83; PULSE 93; RESP 18; TEMP 36.6; O2SAT 97
[2023-06-10] MEDS: ERTAPENEM 1 GM in SODIUM CHLORIDE 0.9% 100 ML IV (10:42)
[2023-06-11] MEDS: ERTAPENEM 1 GM in SODIUM CHLORIDE 0.9% 100 ML IV (08:32)
[2023-06-11 08:35] VITALS: BP 143/96; PULSE 107; RESP 16; TEMP 36.4; O2SAT 100
[2023-06-11 09:03] VITALS: BP 143/93; PULSE 93
[2023-06-12 08:56] VITALS: BP 131/92; PULSE 103; RESP 18; TEMP 36.3; O2SAT 98
[2023-06-12] MEDS: ERTAPENEM 1 GM in SODIUM CHLORIDE 0.9% 100 ML IV (09:08)
[2023-06-13] MEDS: ERTAPENEM 1 GM in SODIUM CHLORIDE 0.9% 100 ML IV (11:14)
[2023-06-14] MEDS: ERTAPENEM 1 GM in SODIUM CHLORIDE 0.9% 100 ML IV (11:41)
[2023-06-14 12:15] VITALS: BP 131/86; PULSE 96; RESP 20; TEMP 36.2; O2SAT 97
[2023-06-15] MEDS: ERTAPENEM 1 GM in SODIUM CHLORIDE 0.9% 100 ML IV (11:13)
[2023-06-15 11:15] VITALS: BP 141/96; PULSE 98; RESP 16; TEMP 36.2; O2SAT 99
[2023-06-16] MEDS: ERTAPENEM 1 GM in SODIUM CHLORIDE 0.9% 100 ML IV (09:23)
[2023-06-16 09:45] LABS: Add Manual Diff / Slide Review NO; Basophils Absolute Auto 100 /uL (0-100); Basophils Percent Auto 1.3 % (0-2); Eosinophils Absolute Auto 300 /uL (0-450); Eosinophils Percent Auto 3.8 % (2-4); Hemoglobin 14.5 g/dL (13.5-17.5); Lymphocytes Absolute Auto 1700 /uL (1100-4500); Lymphocytes Percent Auto 21.5 % (25-40); Mean Corpuscular HGB Conc 34.5 % (30-36); Mean Corpuscular Hemoglobin 32.2 PG (26-34); Mean Corpuscular Volume 93.3 fL (80-100); Monocytes Absolute Auto 500 /uL (0-900); Monocytes Percent Auto 6.6 % (3-14); Neutrophils Absolute Auto 5200 /uL (1500-7000); Neutrophils Percent Auto 66.8 % (50-75); Platelet Count 256 X10^3/uL (150-400); Red Cell Distribution Width 13.9 % (11.6-14.8); White Blood Cell Count 7.8 X10^3/uL (4.5-11.0)
[2023-06-16 10:00] VITALS: BP 125/93; PULSE 92; RESP 18; TEMP 36.9; O2SAT 99
[2023-06-16 10:06] LABS: Alanine Aminotransferase 23 IU/L (<50); Albumin 4.5 g/dL (3.5-5.0); Albumin Globulin Ratio 1.3 (1.0-2.8); Alkaline Phosphatase 71 U/L (38-126); Aspartate Aminotransferase 23 IU/L (17-59); BUN Creatinine Ratio 17.4 (6-22); Bilirubin Total 0.3 mg/dL (0.2-1.3); Blood Urea Nitrogen 15 mg/dL (9-20); C-Reactive Protein Quant 0.8 mg/dL (<1.0); Calcium 9.9 mg/dL (8.4-10.2); Carbon Dioxide 27 mmol/L (22-32); Chloride 102 mmol/L (98-107); Estimated Glomerular Filt Rate > 60 mL/min (>60); Globulin 3.6 g/dL (1.7-4.1); Glucose 84 mg/dL (70-100); HEMOLYSIS 18 (0-50); Potassium 4.4 mmol/L (3.4-5.1); Sodium 137 mmol/L (137-145); Total Protein 8.1 g/dL (6.3-8.2)
[2023-06-17] MEDS: ERTAPENEM 1 GM in SODIUM CHLORIDE 0.9% 100 ML IV (09:07)
[2023-06-17 10:17] VITALS: BP 145/98; PULSE 96; RESP 16; TEMP 36.4; O2SAT 100
[2023-06-18] MEDS: ERTAPENEM 1 GM in SODIUM CHLORIDE 0.9% 100 ML IV (09:03)
[2023-06-19 09:21] VITALS: BP 136/92; PULSE 99; RESP 16; TEMP 36.6; O2SAT 98
[2023-06-20] MEDS: ERTAPENEM 1 GM in SODIUM CHLORIDE 0.9% 100 ML IV (11:30)
[2023-06-21 11:11] VITALS: BP 138/92; PULSE 101; RESP 18; TEMP 36.8; O2SAT 96
[2023-06-21] MEDS: ERTAPENEM 1 GM in SODIUM CHLORIDE 0.9% 100 ML IV (11:17)
[2023-06-22] MEDS: ERTAPENEM 1 GM in SODIUM CHLORIDE 0.9% 100 ML IV (11:04)
[2023-06-23] MEDS: ERTAPENEM 1 GM in SODIUM CHLORIDE 0.9% 100 ML IV (09:12)
[2023-06-23 09:20] LABS: Add Manual Diff / Slide Review NO; Basophils Absolute Auto 100 /uL (0-100); Basophils Percent Auto 1.8 % (0-2); Eosinophils Absolute Auto 300 /uL (0-450); Eosinophils Percent Auto 3.8 % (2-4); Hematocrit 41.8 % (41-53); Hemoglobin 14.3 g/dL (13.5-17.5); Lymphocytes Absolute Auto 1600 /uL (1100-4500); Lymphocytes Percent Auto 22.9 % (25-40); Mean Corpuscular HGB Conc 34.3 % (30-36); Mean Corpuscular Hemoglobin 32.3 PG (26-34); Mean Corpuscular Volume 94.2 fL (80-100); Monocytes Absolute Auto 600 /uL (0-900); Neutrophils Absolute Auto 4500 /uL (1500-7000); Neutrophils Percent Auto 63.5 % (50-75); Platelet Count 260 X10^3/uL (150-400); Red Blood Cell Count 4.44 X10^6/uL (4.5-5.9); Red Cell Distribution Width 14.2 % (11.6-14.8); White Blood Cell Count 7.1 X10^3/uL (4.5-11.0)
[2023-06-23 12:42] LABS: C-Reactive Protein Quant 0.6 mg/dL (<1.0)
[2023-06-23 13:29] LABS: Alanine Aminotransferase 19 IU/L (<50); Albumin 4.5 g/dL (3.5-5.0); Albumin Globulin Ratio 1.3 (1.0-2.8); Alkaline Phosphatase 71 U/L (38-126); Aspartate Aminotransferase 27 IU/L (17-59); BUN Creatinine Ratio 21.4 (6-22); Bilirubin Total 0.6 mg/dL (0.2-1.3); Blood Urea Nitrogen 18 mg/dL (9-20); Calcium 9.9 mg/dL (8.4-10.2); Carbon Dioxide 24 mmol/L (22-32); Chloride 102 mmol/L (98-107); Estimated Glomerular Filt Rate > 60 mL/min (>60); Globulin 3.5 g/dL (1.7-4.1); Glucose 105 mg/dL (70-100); HEMOLYSIS 22 (0-50); Potassium 4.1 mmol/L (3.4-5.1); Sodium 135 mmol/L (137-145)
[2023-06-24 08:59] VITALS: BP 138/94; PULSE 100; RESP 18; TEMP 36.6; O2SAT 97
[2023-06-24] MEDS: ERTAPENEM 1 GM in SODIUM CHLORIDE 0.9% 100 ML IV (08:59)
[2023-06-25 09:12] VITALS: BP 132/90; PULSE 98; RESP 18; TEMP 36.9; O2SAT 99
[2023-06-25] MEDS: ERTAPENEM 1 GM in SODIUM CHLORIDE 0.9% 100 ML IV ×2 (09:12→10:10)
[2023-06-26] MEDS: ERTAPENEM 1 GM in SODIUM CHLORIDE 0.9% 100 ML IV (09:02)
[2023-06-26 09:05] VITALS: BP 139/86; PULSE 98; RESP 18; TEMP 36.8; O2SAT 98
[2023-06-26] MEDS: NEOMYCIN/POLYMYXIN/BACITRA UD OINT 1 EACH TOP (10:04)
--- NOTE | 2023-06-26 11:04 | PC.NURSE ---
1000 AM PICC line discontinued per TO (RB) from Dr. Ortega. Patient was in supine position doing valsalva maneuver, insertion site covered with triple antibiotic on gauze with tegaderm. Patient instructed to remove in 48 hours and to keep dry until then.
== END ==
PROVIDERS: PCP Orthopaedic Surgery Foot and Ankle Surgery; Referring Provider Internal Medicine Infectious Disease; Visit Provider Internal Medicine Infectious Disease
DX: Z45.2 Encounter for adjustment and management of vascular access device (principal); M86.9 Osteomyelitis, unspecified
CPT/HCPCS: 36592; 80053; 82550; 85025; 85651; 86038; 86140; 96365; 96366; J1335; J1642

== ENCOUNTER → 2023-07-22 10:36 | Outpatient (CLI) | payer OTHER, MEDICAID, SELFPAY ==
[2022-06-06 17:47] VITALS: BMI 28.2
[2023-07-22 12:04] LABS: BUN Creatinine Ratio 12.7 (6-22); Blood Urea Nitrogen 13 mg/dL (9-20); Calcium 10.3 mg/dL (8.4-10.2); Carbon Dioxide 23 mmol/L (22-32); Chloride 102 mmol/L (98-107); Estimated Glomerular Filt Rate > 60 mL/min (>60); Glucose 98 mg/dL (70-100); HEMOLYSIS < 15 (0-50); Potassium 4.6 mmol/L (3.4-5.1); Sodium 135 mmol/L (137-145)
== END ==
PROVIDERS: Family Provider Orthopaedic Surgery Foot and Ankle Surgery; Referring Provider Internal Medicine Infectious Disease; Visit Provider Internal Medicine Infectious Disease
DX: M86.60 Other chronic osteomyelitis, unspecified site (principal)
CPT/HCPCS: 36415; 80048

== ENCOUNTER → 2023-08-20 12:48 | Outpatient (CLI) | payer OTHER, MEDICAID, SELFPAY ==
[2022-06-06 17:47] VITALS: BMI 28.2
[2023-08-20 15:24] LABS: BUN Creatinine Ratio 16.7 (6-22); Blood Urea Nitrogen 16 mg/dL (9-20); Carbon Dioxide 24 mmol/L (22-32); Chloride 101 mmol/L (98-107); Estimated Glomerular Filt Rate > 60 mL/min (>60); Glucose 107 mg/dL (70-100); HEMOLYSIS 33 (0-50); Potassium 4.6 mmol/L (3.4-5.1); Sodium 137 mmol/L (137-145)
== END ==
PROVIDERS: Family Provider Orthopaedic Surgery Foot and Ankle Surgery; Referring Provider Internal Medicine Infectious Disease; Visit Provider Internal Medicine Infectious Disease
DX: M86.60 Other chronic osteomyelitis, unspecified site (principal)
CPT/HCPCS: 36415; 80048

== ENCOUNTER → 2023-08-29 15:30 | Outpatient (CLI) | payer OTHER, MEDICAID, SELFPAY ==
[2022-06-06 17:47] VITALS: BMI 28.2
[2023-08-29 17:28] LABS: Add Manual Diff / Slide Review NO; Basophils Absolute Auto 100 /uL (0-100); Basophils Percent Auto 1.3 % (0-2); Eosinophils Absolute Auto 200 /uL (0-450); Eosinophils Percent Auto 2.6 % (2-4); Hematocrit 42.2 % (41-53); Hemoglobin 14.5 g/dL (13.5-17.5); Lymphocytes Absolute Auto 1800 /uL (1100-4500); Mean Corpuscular HGB Conc 34.4 % (30-36); Mean Corpuscular Hemoglobin 34.7 PG (26-34); Mean Corpuscular Volume 100.9 fL (80-100); Monocytes Absolute Auto 700 /uL (0-900); Monocytes Percent Auto 10.4 % (3-14); Neutrophils Absolute Auto 4300 /uL (1500-7000); Neutrophils Percent Auto 60.7 % (50-75); Platelet Count 278 X10^3/uL (150-400); Red Blood Cell Count 4.18 X10^6/uL (4.5-5.9); Red Cell Distribution Width 14.7 % (11.6-14.8); White Blood Cell Count 7.1 X10^3/uL (4.5-11.0)
[2023-08-29 18:03] LABS: Alanine Aminotransferase 23 IU/L (<50); Albumin 4.7 g/dL (3.5-5.0); Albumin Globulin Ratio 1.3 (1.0-2.8); Alkaline Phosphatase 76 U/L (38-126); Aspartate Aminotransferase 31 IU/L (17-59); BUN Creatinine Ratio 14.3 (6-22); Bilirubin Total 0.6 mg/dL (0.2-1.3); Blood Urea Nitrogen 14 mg/dL (9-20); Calcium 9.9 mg/dL (8.4-10.2); Carbon Dioxide 22 mmol/L (22-32); Chloride 99 mmol/L (98-107); Estimated Glomerular Filt Rate > 60 mL/min (>60); Globulin 3.7 g/dL (1.7-4.1); Glucose 86 mg/dL (70-100); HEMOLYSIS 37 (0-50); Potassium 4.6 mmol/L (3.4-5.1); Sodium 135 mmol/L (137-145); Total Protein 8.4 g/dL (6.3-8.2)
== END ==
LOC: LAB 15:32
PROVIDERS: Family Provider Orthopaedic Surgery Foot and Ankle Surgery; Referring Provider Internal Medicine Infectious Disease; Visit Provider Internal Medicine Infectious Disease
DX: M86.60 Other chronic osteomyelitis, unspecified site (principal)
CPT/HCPCS: 36415; 80053; 85025

== ENCOUNTER → 2023-09-03 10:00 | Outpatient (CLI) | payer OTHER, MEDICAID, SELFPAY ==
[2022-06-06 17:47] VITALS: BMI 28.2
[2023-09-03 11:42] LABS: Influenza A - CEPHEID Flu A POSITIVE (NEGATIVE); Influenza B - CEPHEID Flu B NEGATIVE (NEGATIVE); Respiratory Syncytial Virus Negative (Negative)
[2023-09-03 11:49] LABS: COVID-19 CEPHEID 4-PLEX PCR Negative (Negative)
== END ==
PROVIDERS: Family Provider Orthopaedic Surgery Foot and Ankle Surgery; Visit Provider Nurse Practitioner Family
DX: R05.1 Acute cough (principal)
CPT/HCPCS: 0241U

== ENCOUNTER → 2023-09-16 11:16 | Outpatient (CLI) | payer OTHER, MEDICAID, SELFPAY ==
[2022-06-06 17:47] VITALS: BMI 28.2
[2023-09-16 12:02] LABS: Add Manual Diff / Slide Review NO; Basophils Absolute Auto 100 /uL (0-100); Basophils Percent Auto 1.3 % (0-2); Eosinophils Absolute Auto 100 /uL (0-450); Eosinophils Percent Auto 2.7 % (2-4); Hematocrit 39.3 % (41-53); Hemoglobin 13.8 g/dL (13.5-17.5); Lymphocytes Absolute Auto 1300 /uL (1100-4500); Lymphocytes Percent Auto 26.5 % (25-40); Mean Corpuscular HGB Conc 35.1 % (30-36); Mean Corpuscular Hemoglobin 35.5 PG (26-34); Mean Corpuscular Volume 101.1 fL (80-100); Monocytes Absolute Auto 500 /uL (0-900); Monocytes Percent Auto 9.7 % (3-14); Neutrophils Absolute Auto 3000 /uL (1500-7000); Neutrophils Percent Auto 59.8 % (50-75); Platelet Count 403 X10^3/uL (150-400); Red Blood Cell Count 3.88 X10^6/uL (4.5-5.9); Red Cell Distribution Width 13.9 % (11.6-14.8); White Blood Cell Count 5.1 X10^3/uL (4.5-11.0)
[2023-09-16 12:54] LABS: Cholesterol 243 mg/dL (140-199); HDL Cholesterol 65 mg/dL (40-60); LDL Cholesterol Calculated 119 mg/dL (<100); Triglycerides 297 mg/dL (35-150)
[2023-09-16 12:56] LABS: Alanine Aminotransferase 22 IU/L (<50); Albumin 4.6 g/dL (3.5-5.0); Albumin Globulin Ratio 1.4 (1.0-2.8); Alkaline Phosphatase 82 U/L (38-126); Aspartate Aminotransferase 24 IU/L (17-59); BUN Creatinine Ratio 10.9 (6-22); Bilirubin Total 0.6 mg/dL (0.2-1.3); Blood Urea Nitrogen 11 mg/dL (9-20); C-Reactive Protein Quant 0.6 mg/dL (<1.0); Calcium 10.1 mg/dL (8.4-10.2); Carbon Dioxide 25 mmol/L (22-32); Chloride 102 mmol/L (98-107); Estimated Glomerular Filt Rate > 60 mL/min (>60); Globulin 3.3 g/dL (1.7-4.1); Glucose 103 mg/dL (70-100); HEMOLYSIS < 15 (0-50); Potassium 4.3 mmol/L (3.4-5.1); Sodium 137 mmol/L (137-145); Total Protein 7.9 g/dL (6.3-8.2)
[2023-09-16 18:17] LABS: Microalbumin Urine Random < 0.6 mg/dL (0-1.6)
[2023-09-16 18:43] LABS: Creatinine Urine Random 162.9 mg/dL
[2023-09-18 16:15] LABS: HIV 1 & 2 Ab/Ag 4th Gen Combo NEGATIVE (NEGATIVE); Hep C Virus Ab w/Reflex Quant NEGATIVE s/c (NEGATIVE)
== END ==
PROVIDERS: Family Provider Orthopaedic Surgery Foot and Ankle Surgery; PCP Family Medicine; Referring Provider Internal Medicine Infectious Disease; Visit Provider Internal Medicine Infectious Disease
DX: Z13.220 Encounter for screening for lipoid disorders (principal); Z11.59 Encounter for screening for other viral diseases; Z11.4 Encounter for screening for human immunodeficiency virus [HIV]; M86.60 Other chronic osteomyelitis, unspecified site; I10 Essential (primary) hypertension
CPT/HCPCS: 36415; 80053; 80061; 82043; 82570; 85025; 86140; 86803; 87389

== ENCOUNTER 2023-10-07 12:45 | Outpatient (RCR) | payer OTHER, MEDICAID, SELFPAY ==
[2022-06-06 17:47] VITALS: BMI 28.2
--- NOTE | 2023-06-11 12:21 | PT.OPPOC ---
Physical, Occupational & Speech Therapy At [facility] Current Diagnoses Displaced fracture of intermediate cuneiform of right foot, sequela (06/11/23) Displaced fracture of second metatarsal bone, right foot, sequela (06/11/23) Dislocation of tarsometatarsal joint of right foot, subsequent encounter (06/11/23) Disruption of external operation (surgical) wound, not elsewhere classified, subsequent encounter (06/11/23) Visit Care Team Role Provider Type Arlen Nair MD Attending Provider Physician Family Provider Primary Care Provider Referring Provider Specialty: Orthopedics Orthopedic Surgery Address: [address] [place] [address], [id number] Email: [email or web address] Plan Of Care PT-OP-T Assessment and Plan Start: 06/11/23 09:02 Freq: Status: Active Protocol: Document 06/11/23 12:21 AM (Rec: 06/11/23 17:58 AM [id number]) Physical Therapy Assessment Rehab Potential Rehabilitation Potential Good Evaluation Complexity Number of Personal Factors/Comorbidities 1-2 Number of Body Systems Impaired 1-2 Clinical Presentation at Evaluation Stable Impairments Impairments Activity Tolerance,Balance, Coordination,Functional Activities,Functional Mobility ,Gait,Integument,Pain,ROM, Sensation,Soft Tissue Mobility ,Strength Goals HEP Prison Goal (LTG) Pt independent with HEP LTG Duration 09/03/22 FAAM Impairment Pt with score of 17/84 on FAAM . Short Term Goal (STG) Pt with score of 30/84 on FAAM STG Duration 07/23/23 Prison Goal (LTG) Pt with score of 50/84 on FAAM LTG Duration 09/03/22 Stairs Impairment Pt with step-to gait pattern. Short Term Goal (STG) Pt able to ascend/descend stairs with reciprocal gait pattern. STG Duration 07/23/23 Gait Impairment Pt ambulates 25% weight- bearing on R LE with JORY. Short Term Goal (STG) Pt able to ambulate >75% weightbearing on R LE with unilateral crutch STG Duration 07/23/23 Prison Goal (LTG) Pt able to ambulate without AD . LTG Duration 09/03/22 Pain Impairment Pt reporting 9/10 pain at the worst Short Term Goal (STG) Pt to report 6/10 at the worst STG Duration 07/23/23 Prison Goal (LTG) Pt to report 2/10 at the worst . LTG Duration 09/03/22 Assessment Summary Assessment Cornelius Tran presents to PT to address R foot pain following injury and lisfranc fusion. Pt with infection following fusion, requiring debridement and infusion antibiotics. Pt demonstrating 25% weightbearing on R LE while in boot and with R knee brace. Pt demonstrates R medial knee pain from prior injury that has worsened with recent foot injury. Pt demonstrates limited R ankle and knee mobility. Pt demonstrates weakness at R quads with reported difficulty with quad sets and SLR. Pt with fair tolerance to R ankle AROM with alphabet. Pt with minimal mobility at R phalanges, except for hallux. Pt demonstrates edema at R foot with healing incision sites. Pt would benefit from continued PT to progress R ankle mobility and R LE strength to improve gait, strength and mobility to improve tolerance to functional tasks. Physical Therapy Plan Frequency and Duration Frequency of Treatment 2x/Week Duration of treatment (weeks) 12 Plan of Care Start Date 06/11/23 Plan of Care End Date 09/03/23 Therapeutic Interventions Therapeutic Interventions Balance Training,Coordination Training,Gait Training,Home Exercise Program,Joint Mobilizations,Manual Therapy, Neuromuscular Re-education, Patient/Caregiver Education, Self-Care/Home Management,Soft Tissue Mobilization,Taping, Therapeutic Activities, Therapeutic Exercises Modalities Cold Pack/Ice Massage,Electric Stimulation,Hot Packs, Ultrasound Next Visit Focus/Plan Next Note Type Treatment Note Next Visit Plan Progress R LE strength, weight shifting on R LE, gait training Plan of Care Dates Plan of Care Start Date 06/11/23 Plan of Care End Date 09/03/23 Electronically Signed by: Shellie Coronado, PT 06/11/23 7050 If you are in agreement with this Plan of Care, please return a signed and dated copy. I have reviewed this Plan of Care and certify that the skilled therapy services above are required to meet the patient?s needs. Physician Signature Date Printed Name and Credentials Clinical Instructor Signature Printed Name and Credentials
--- NOTE | 2023-06-11 12:21 | PT.OIE ---
Current Diagnoses Displaced fracture of intermediate cuneiform of right foot, sequela (06/11/23) Displaced fracture of second metatarsal bone, right foot, sequela (06/11/23) Dislocation of tarsometatarsal joint of right foot, subsequent encounter (06/11/23) Disruption of external operation (surgical) wound, not elsewhere classified, subsequent encounter (06/11/23) Past Medical History (Last Reviewed 03/22/23 @ 12:36 by Barbara Rodriguez DO) Ankle pain (~2019) Anxiety and depression (~2017) Benign essential HTN Headache (~2017) Nondisplaced fracture of navicular [scaphoid] of right foot, initial encounter for closed fracture Preventative health care Tobacco abuse counseling Wears glasses Visit Care Team Role Provider Type Arlen Nair MD Attending Provider Physician Family Provider Primary Care Provider Referring Provider Specialty: Orthopedics Orthopedic Surgery Address: [address] [place] [address], [id number] Email: [email or web address] Initial Evaluation PT-OP-A Visit Information Start: 06/11/23 09:02 Freq: Status: Active Protocol: Document 06/11/23 12:21 AM (Rec: 06/11/23 17:58 AM [id number]) Out-Patient Physical Therapy Visit Information Visit Information Visit Type Initial Evaluation Visit Note Pt is 11 weeks post-op until 06/13/23 Visit Start Time 12:21 Visit Stop Time 13:05 Total Visit Minutes 44 Visit Number 1 Evaluation Information Evaluation Date 06/11/23 Precautions Precautions Pt with IV infusions for infection, Gradual increase weight-bearing as tolerated PT-OP-B Current Condition Start: 06/11/23 09:02 Freq: Status: Active Protocol: Document 06/11/23 12:21 AM (Rec: 06/11/23 17:58 AM [id number]) Current Condition History of Current Condition Onset Date Initial injury 02/22/23 Current Complaints R foot pain History of Current Condition Pt had R lisfranc fusion . Pt was helping someone move an armoire down the stairs. The armoire hit his foot. Pt reports that it shattered his foot. Pt's is on his 4th surgery with recent fusion. Pt then got an infection following the 3rd surgery, therefore had a 4th surgery to clean the area. Pt is now getting infusion antibiotics. Pt reports that he feels that the antibiotic fusions have cause joint stiffness elsewhere. Pt is going to be transitioning to an oral antibiotic to see if joint stiffness decreases. Pt reports that he also has R knee pain from prior surgery. He is now wearing a knee brace for that. Pain at R medial knee joint. Pt reports that he is cleared to increase weight -bearing through R LE, but only able to put 25% of his body weight on R LE while ambulating. Prior Treatments and Tests K-wire fixation of the 5th metatarsal tarsometatarsal joint. Screw and plate fixation of the 1st through 3rd tarsometatarsal joints. tarsometatarsal joints. Prior Functional Status Baseline Function- ADL's Independent Baseline Function- Mobility Independent Current Functional Impairments (Reported) Functional Limitations- ADL's Pt independent with ADLs Functional Limitations- Mobility/Gait Pt ambulating with JORY. Pt has stairs at home and had been Functional Limitations- Work/School Pt is retired PT-OP-C Subjective Start: 06/11/23 09:02 Freq: Status: Active Protocol: Document 06/11/23 12:21 AM (Rec: 06/11/23 17:58 AM [id number]) OP-PT Subjective Patient Comments Patient Comments Pt will f/u with surgeon on Patient Questionnaires Foot & Ankle Ability Measure- ADL and Sports FAAM-ADL Score 17/84 FAAM-ADL Impairment 60 to 79% Impaired (Score 16- 32) OP-PT Pain Assessment Pain Assessment Grid Paper Pain Assessment Grid Completed Yes Location Right Foot Pain Location Details R foot, worse at 5th ray Intensity 9 Scale Used Numeric (0 - 10) Description- Other 9/10 at the worst Frequency Daily Pain Aggravating Factors Activity,Standing,Walking, Stair Climbing,Bending PT-OP-G Mobility & Gait Start: 06/11/23 09:02 Freq: Status: Active Protocol: Document 06/11/23 12:21 AM (Rec: 06/11/23 17:58 AM [id number]) OP Gait Assessment Gait Gait Assistance Required: Independent Assistive Devices Assistive Device Axillary Crutches Orthotic/Prosthetic Devices or Brace: Yes Gait Deviations General Gait Pattern Antalgic,Decreased Stride Length Comments Gait Comments Pt ambulates with R knee flexed and lack of heel strike /push-off. Stair Climbing Evaluation Evaluation Level of Assist On Stairs Standby Assistance Devices Stair Climbing Assistive Devices Axillary Crutches,Right Railing Technique/Endurance Stair Climbing Direction Ascend and Descend Stair Climbing Technique Step to Step Number of Steps Climbed 8 Comments Stair Climbing Comments Pt demonstrated ascending with R LE leading and descending with L LE leading. Pt cued to ascend with L leading and descend with R leading to decrease strain at R knee. Pt able to demonstrate safety with this. PT-OP-J Posture/Palpation/Skin Start: 06/11/23 09:02 Freq: Status: Active Protocol: Document 06/11/23 12:21 AM (Rec: 06/11/23 17:58 AM [id number]) Skin Assessment Edema Assessment Right Foot Edema Type Pitting Subjective Edema Description Tightness Incisional Assessment Incision Appearance/Comments Pt's incision sites are not full healed, though dry. Pt being treated for infection PT-OP-K Range of Motion Start: 06/11/23 09:02 Freq: Status: Active Protocol: Document 06/11/23 12:21 AM (Rec: 06/11/23 17:58 AM [id number]) Ankle and Foot Goniometric Range of Motion Ankle and Foot Right Active Testing Position Supine Dorsiflexion with Knee Extended 2 Plantarflexion 30 Inversion 20 Eversion 10 Comments 5th metatarsal pain R knee 120 deg (painful) Left Active Testing Position Supine Dorsiflexion with Knee Extended 12 Plantarflexion 48 Inversion 35 Eversion 15 PT-OP-M Strength Start: 06/11/23 09:02 Freq: Status: Active Protocol: Document 06/11/23 12:21 AM (Rec: 06/11/23 17:58 AM [id number]) Ankle/Foot Strength Ankle and Foot Manual Muscle Testing Right Comments NT secondary to pain Left Dorsiflexion (L4) 5 Normal Plantarflexion (S1) 5 Normal Inversion 5 Normal Eversion (S1) 5 Normal PT-OP-Q Treatments Start: 06/11/23 09:02 Freq: Status: Active Protocol: Document 06/11/23 12:21 AM (Rec: 06/11/23 17:58 AM [id number]) Therapeutic Exercises Supine Exercises SLR Side right Reps/Minutes x10 Comments added to HEP Quad set Side right Equipment Used towel roll Reps/Minutes 10x5 sec Comments added to HEP Ankle alphabet Comments added to HEP Gait Training Gait Activity Stair Description Gait training at stairs Comments Ascend with L LE leading, descend with R LE leading with use of 1 railing and crutches in other hand. Self-Care/Home Management Treatment Education Patient Education Home Exercise Program Other Education Wrapping R ankle/foot to decrease edema. Wear boot at night to decrease motion/pain. PT-OP-T Assessment and Plan Start: 06/11/23 09:02 Freq: Status: Active Protocol: Document 06/11/23 12:21 AM (Rec: 06/11/23 17:58 AM [id number]) Physical Therapy Assessment Rehab Potential Rehabilitation Potential Good Evaluation Complexity Number of Personal Factors/Comorbidities 1-2 Number of Body Systems Impaired 1-2 Clinical Presentation at Evaluation Stable Impairments Impairments Activity Tolerance,Balance, Coordination,Functional Activities,Functional Mobility ,Gait,Integument,Pain,ROM, Sensation,Soft Tissue Mobility ,Strength Goals [facility] School Curriculum Developer Goal (LTG) Pt independent with HEP LTG Duration 09/03/22 FAAM Impairment Pt with score of 17/84 on FAAM . Short Term Goal (STG) Pt with score of 30/84 on FAAM STG Duration 07/23/23 Snf Goal (LTG) Pt with score of 50/84 on FAAM LTG Duration 09/03/22 Stairs Impairment Pt with step-to gait pattern. Short Term Goal (STG) Pt able to ascend/descend stairs with reciprocal gait pattern. STG Duration 07/23/23 Gait Impairment Pt ambulates 25% weight- bearing on R LE with JORY. Short Term Goal (STG) Pt able to ambulate >75% weightbearing on R LE with unilateral crutch STG Duration 07/23/23 Snf Goal (LTG) Pt able to ambulate without AD . LTG Duration 09/03/22 Pain Impairment Pt reporting 9/10 pain at the worst Short Term Goal (STG) Pt to report 6/10 at the worst STG Duration 07/23/23 Snf Goal (LTG) Pt to report 2/10 at the worst . LTG Duration 09/03/22 Assessment Summary Assessment Cornelius Tran presents to PT to address R foot pain following injury and lisfranc fusion. Pt with infection following fusion, requiring debridement and infusion antibiotics. Pt demonstrating 25% weightbearing on R LE while in boot and with R knee brace. Pt demonstrates R medial knee pain from prior injury that has worsened with recent foot injury. Pt demonstrates limited R ankle and knee mobility. Pt demonstrates weakness at R quads with reported difficulty with quad sets and SLR. Pt with fair tolerance to R ankle AROM with alphabet. Pt with minimal mobility at R phalanges, except for hallux. Pt demonstrates edema at R foot with healing incision sites. Pt would benefit from continued PT to progress R ankle mobility and R LE strength to improve gait, strength and mobility to improve tolerance to functional tasks. Physical Therapy Plan Frequency and Duration Frequency of Treatment 2x/Week Duration of treatment (weeks) 12 Plan of Care Start Date 06/11/23 Plan of Care End Date 09/03/23 Therapeutic Interventions Therapeutic Interventions Balance Training,Coordination Training,Gait Training,Home Exercise Program,Joint Mobilizations,Manual Therapy, Neuromuscular Re-education, Patient/Caregiver Education, Self-Care/Home Management,Soft Tissue Mobilization,Taping, Therapeutic Activities, Therapeutic Exercises Modalities Cold Pack/Ice Massage,Electric Stimulation,Hot Packs, Ultrasound Next Visit Focus/Plan Next Note Type Treatment Note Next Visit Plan Progress R LE strength, weight shifting on R LE, gait training
--- NOTE | 2023-06-13 15:16 | PT.OTN ---
Current Diagnoses Displaced fracture of intermediate cuneiform of right foot, sequela (06/13/23) Displaced fracture of second metatarsal bone, right foot, sequela (06/13/23) Dislocation of tarsometatarsal joint of right foot, subsequent encounter (06/13/23) Disruption of external operation (surgical) wound, not elsewhere classified, subsequent encounter (06/13/23) Physical Therapy Treatment Note PT-OP-A Visit Information Start: 06/11/23 09:02 Freq: Status: Active Protocol: Document 06/13/23 15:16 AM (Rec: 06/13/23 17:47 AM [id number]) Out-Patient Physical Therapy Visit Information Visit Information Visit Type Treatment Note Visit Note Pt is 12 weeks post-op until 06/20/23 Visit Start Time 15:16 Visit Stop Time 16:01 Total Visit Minutes 45 Visit Number 09/22 PT-OP-B Current Condition Start: 06/11/23 09:02 Freq: Status: Active Protocol: Document 06/11/23 12:21 AM (Rec: 06/11/23 17:58 AM [id number]) Current Condition History of Current Condition Onset Date Initial injury 02/22/23 Current Complaints R foot pain History of Current Condition Pt had R lisfranc fusion . Pt was helping someone move an armoire down the stairs. The armoire hit his foot. Pt reports that it shattered his foot. Pt's is on his 4th surgery with recent fusion. Pt then got an infection following the 3rd surgery, therefore had a 4th surgery to clean the area. Pt is now getting infusion antibiotics. Pt reports that he feels that the antibiotic fusions have cause joint stiffness elsewhere. Pt is going to be transitioning to an oral antibiotic to see if joint stiffness decreases. Pt reports that he also has R knee pain from prior surgery. He is now wearing a knee brace for that. Pain at R medial knee joint. Pt reports that he is cleared to increase weight -bearing through R LE, but only able to put 25% of his body weight on R LE while ambulating. Prior Treatments and Tests K-wire fixation of the 5th metatarsal tarsometatarsal joint. Screw and plate fixation of the 1st through 3rd tarsometatarsal joints. tarsometatarsal joints. Prior Functional Status Baseline Function- ADL's Independent Baseline Function- Mobility Independent Current Functional Impairments (Reported) Functional Limitations- ADL's Pt independent with ADLs Functional Limitations- Mobility/Gait Pt ambulating with JORY. Pt has stairs at home and had been Functional Limitations- Work/School Pt is retired PT-OP-C Subjective Start: 06/11/23 09:02 Freq: Status: Active Protocol: Document 06/13/23 15:16 AM (Rec: 06/13/23 17:47 AM [id number]) OP-PT Subjective Patient Comments Patient Comments Pt reports that he has a 12 more infusions left, so will continue vs changing to oral antibiotic. Pt reports that he has been doing step-to gait pattern on stairs and that is helpful. PT-OP-G Mobility & Gait Start: 06/11/23 09:02 Freq: Status: Active Protocol: Document 06/11/23 12:21 AM (Rec: 06/11/23 17:58 AM [id number]) OP Gait Assessment Gait Gait Assistance Required: Independent Assistive Devices Assistive Device Axillary Crutches Orthotic/Prosthetic Devices or Brace: Yes Gait Deviations General Gait Pattern Antalgic,Decreased Stride Length Comments Gait Comments Pt ambulates with R knee flexed and lack of heel strike /push-off. Stair Climbing Evaluation Evaluation Level of Assist On Stairs Standby Assistance Devices Stair Climbing Assistive Devices Axillary Crutches,Right Railing Technique/Endurance Stair Climbing Direction Ascend and Descend Stair Climbing Technique Step to Step Number of Steps Climbed 8 Comments Stair Climbing Comments Pt demonstrated ascending with R LE leading and descending with L LE leading. Pt cued to ascend with L leading and descend with R leading to decrease strain at R knee. Pt able to demonstrate safety with this. PT-OP-J Posture/Palpation/Skin Start: 06/11/23 09:02 Freq: Status: Active Protocol: Document 06/11/23 12:21 AM (Rec: 06/11/23 17:58 AM [id number]) Skin Assessment Edema Assessment Right Foot Edema Type Pitting Subjective Edema Description Tightness Incisional Assessment Incision Appearance/Comments Pt's incision sites are not full healed, though dry. Pt being treated for infection PT-OP-K Range of Motion Start: 06/11/23 09:02 Freq: Status: Active Protocol: Document 06/11/23 12:21 AM (Rec: 06/11/23 17:58 AM [id number]) Ankle and Foot Goniometric Range of Motion Ankle and Foot Right Active Testing Position Supine Dorsiflexion with Knee Extended 2 Plantarflexion 30 Inversion 20 Eversion 10 Comments 5th metatarsal pain R knee 120 deg (painful) Left Active Testing Position Supine Dorsiflexion with Knee Extended 12 Plantarflexion 48 Inversion 35 Eversion 15 PT-OP-M Strength Start: 06/11/23 09:02 Freq: Status: Active Protocol: Document 06/11/23 12:21 AM (Rec: 06/11/23 17:58 AM [id number]) Ankle/Foot Strength Ankle and Foot Manual Muscle Testing Right Comments NT secondary to pain Left Dorsiflexion (L4) 5 Normal Plantarflexion (S1) 5 Normal Inversion 5 Normal Eversion (S1) 5 Normal PT-OP-Q Treatments Start: 06/11/23 09:02 Freq: Status: Active Protocol: Document 06/13/23 15:16 AM (Rec: 06/13/23 17:47 AM [id number]) Therapeutic Exercises Supine Exercises Bridge Reps/Minutes x10 added to HEP Comments without boot Self gastroc stretch Reps/Minutes x30 sec Comments added to HEP 4-way ankle Side right Resistance AROM Reps/Minutes x10 ea SLR Side right Reps/Minutes x10 Comments added to HEP Quad set Side right Equipment Used towel roll Reps/Minutes 10x5 sec Comments added to HEP Sidelying Exercises Sidelying SLR Side right Reps/Minutes x10 Comments manual cueing to decrease hip flexor involvement Sitting Exercises LAQ Side right Reps/Minutes x10 Comments Pain at R knee when initially started, improved with reps BAPS Side right Resistance L1 Reps/Minutes x10 ea dir Gait Training Gait Activity Crutches Comments Cues for heel strike and rolling through foot, vs lateral tibial torsion. Able to do without increase in pain . Manual Therapy Treatment Joint Mobilizations talocrural Direction A-P Grade II PT-OP-T Assessment and Plan Start: 06/11/23 09:02 Freq: Status: Active Protocol: Document 06/13/23 15:16 AM (Rec: 06/13/23 17:47 AM [id number]) Physical Therapy Assessment Goals HEP Pattern Chain Maker Supervisor Goal (LTG) Pt independent with HEP LTG Duration 09/03/22 FAAM Impairment Pt with score of 17/84 on FAAM . Short Term Goal (STG) Pt with score of 30/84 on FAAM STG Duration 07/23/23 Correction Goal (LTG) Pt with score of 50/84 on FAAM LTG Duration 09/03/22 Stairs Impairment Pt with step-to gait pattern. Short Term Goal (STG) Pt able to ascend/descend stairs with reciprocal gait pattern. STG Duration 07/23/23 Gait Impairment Pt ambulates 25% weight- bearing on R LE with JORY. Short Term Goal (STG) Pt able to ambulate >75% weightbearing on R LE with unilateral crutch STG Duration 07/23/23 Correction Goal (LTG) Pt able to ambulate without AD . LTG Duration 09/03/22 Pain Impairment Pt reporting 9/10 pain at the worst Short Term Goal (STG) Pt to report 6/10 at the worst STG Duration 07/23/23 Pattern Chain Maker Supervisor Goal (LTG) Pt to report 2/10 at the worst . LTG Duration 09/03/22 Assessment Summary Assessment Pt demonstrated improved gait pattern with cueing for heel strike and pushing rolling through foot. Pt able to tolerate pressure through R foot with bridge without increase in pain. Pt demonstrates improved knee extension mobility today, though continues to report occasional sharp medial knee pain with knee extension activities. Pt demonstrates reduced edema at R foot today. Pt demonstrates continued gradual healing of R dorsal and medial incision sites. Pt with anterior ankle impingement with ankle dorsiflexion and tolerated A-P TC glides well. Pt with weakness at R hip grossly. Pt would benefit from continued PT to progress R LE strength and mobility as tolerated. Physical Therapy Plan Frequency and Duration Frequency of Treatment 2x/Week Duration of treatment (weeks) 12 Plan of Care Start Date 06/11/23 Plan of Care End Date 09/03/23 Therapeutic Interventions Therapeutic Interventions Balance Training,Coordination Training,Gait Training,Home Exercise Program,Joint Mobilizations,Manual Therapy, Neuromuscular Re-education, Patient/Caregiver Education, Self-Care/Home Management,Soft Tissue Mobilization,Taping, Therapeutic Activities, Therapeutic Exercises Modalities Cold Pack/Ice Massage,Electric Stimulation,Hot Packs, Ultrasound Next Visit Focus/Plan Next Note Type Treatment Note Next Visit Plan Progress R LE strength, weight shifting on R LE, gait training,
--- NOTE | 2023-06-18 13:30 | PT.OTN ---
Current Diagnoses Displaced fracture of intermediate cuneiform of right foot, sequela (06/18/23) Displaced fracture of second metatarsal bone, right foot, sequela (06/18/23) Dislocation of tarsometatarsal joint of right foot, subsequent encounter (06/18/23) Disruption of external operation (surgical) wound, not elsewhere classified, subsequent encounter (06/18/23) Physical Therapy Treatment Note PT-OP-A Visit Information Start: 06/11/23 09:02 Freq: Status: Active Protocol: Document 06/18/23 13:30 AM (Rec: 06/18/23 17:26 AM [id number]) Out-Patient Physical Therapy Visit Information Visit Information Visit Type Treatment Note Visit Start Time 13:30 Visit Stop Time 14:15 Total Visit Minutes 45 Visit Number 10/20 PT-OP-B Current Condition Start: 06/11/23 09:02 Freq: Status: Active Protocol: Document 06/11/23 12:21 AM (Rec: 06/11/23 17:58 AM [id number]) Current Condition History of Current Condition Onset Date Initial injury 02/22/23 Current Complaints R foot pain History of Current Condition Pt had R lisfranc fusion . Pt was helping someone move an armoire down the stairs. The armoire hit his foot. Pt reports that it shattered his foot. Pt's is on his 4th surgery with recent fusion. Pt then got an infection following the 3rd surgery, therefore had a 4th surgery to clean the area. Pt is now getting infusion antibiotics. Pt reports that he feels that the antibiotic fusions have cause joint stiffness elsewhere. Pt is going to be transitioning to an oral antibiotic to see if joint stiffness decreases. Pt reports that he also has R knee pain from prior surgery. He is now wearing a knee brace for that. Pain at R medial knee joint. Pt reports that he is cleared to increase weight -bearing through R LE, but only able to put 25% of his body weight on R LE while ambulating. Prior Treatments and Tests K-wire fixation of the 5th metatarsal tarsometatarsal joint. Screw and plate fixation of the 1st through 3rd tarsometatarsal joints. tarsometatarsal joints. Prior Functional Status Baseline Function- ADL's Independent Baseline Function- Mobility Independent Current Functional Impairments (Reported) Functional Limitations- ADL's Pt independent with ADLs Functional Limitations- Mobility/Gait Pt ambulating with JORY. Pt has stairs at home and had been Functional Limitations- Work/School Pt is retired PT-OP-C Subjective Start: 06/11/23 09:02 Freq: Status: Active Protocol: Document 06/18/23 13:30 AM (Rec: 06/18/23 17:26 AM [id number]) OP-PT Subjective Patient Comments Patient Comments Pt reports that his foot feels better today. Pt reports that he feels that he could walk without the crutches. PT-OP-G Mobility & Gait Start: 06/11/23 09:02 Freq: Status: Active Protocol: Document 06/11/23 12:21 AM (Rec: 06/11/23 17:58 AM [id number]) OP Gait Assessment Gait Gait Assistance Required: Independent Assistive Devices Assistive Device Axillary Crutches Orthotic/Prosthetic Devices or Brace: Yes Gait Deviations General Gait Pattern Antalgic,Decreased Stride Length Comments Gait Comments Pt ambulates with R knee flexed and lack of heel strike /push-off. Stair Climbing Evaluation Evaluation Level of Assist On Stairs Standby Assistance Devices Stair Climbing Assistive Devices Axillary Crutches,Right Railing Technique/Endurance Stair Climbing Direction Ascend and Descend Stair Climbing Technique Step to Step Number of Steps Climbed 8 Comments Stair Climbing Comments Pt demonstrated ascending with R LE leading and descending with L LE leading. Pt cued to ascend with L leading and descend with R leading to decrease strain at R knee. Pt able to demonstrate safety with this. PT-OP-J Posture/Palpation/Skin Start: 06/11/23 09:02 Freq: Status: Active Protocol: Document 06/11/23 12:21 AM (Rec: 06/11/23 17:58 AM [id number]) Skin Assessment Edema Assessment Right Foot Edema Type Pitting Subjective Edema Description Tightness Incisional Assessment Incision Appearance/Comments Pt's incision sites are not full healed, though dry. Pt being treated for infection PT-OP-K Range of Motion Start: 06/11/23 09:02 Freq: Status: Active Protocol: Document 06/11/23 12:21 AM (Rec: 06/11/23 17:58 AM [id number]) Ankle and Foot Goniometric Range of Motion Ankle and Foot Right Active Testing Position Supine Dorsiflexion with Knee Extended 2 Plantarflexion 30 Inversion 20 Eversion 10 Comments 5th metatarsal pain R knee 120 deg (painful) Left Active Testing Position Supine Dorsiflexion with Knee Extended 12 Plantarflexion 48 Inversion 35 Eversion 15 PT-OP-M Strength Start: 06/11/23 09:02 Freq: Status: Active Protocol: Document 06/11/23 12:21 AM (Rec: 06/11/23 17:58 AM [id number]) Ankle/Foot Strength Ankle and Foot Manual Muscle Testing Right Comments NT secondary to pain Left Dorsiflexion (L4) 5 Normal Plantarflexion (S1) 5 Normal Inversion 5 Normal Eversion (S1) 5 Normal PT-OP-Q Treatments Start: 06/11/23 09:02 Freq: Status: Active Protocol: Document 06/18/23 13:30 AM (Rec: 06/18/23 17:26 AM [id number]) Cardio Equipment Recumbent Stepper (Sci-Fit) Duration (Minutes) 6 Resistance 3 Therapeutic Exercises Supine Exercises SAQ Reps/Minutes x5 Comments attempted, though painful 4-way ankle Supine Exercise Name resisted with DF and PF, not resisted with Inv and ev Side right Resistance [place] TB and AROM Reps/Minutes x10 ea SLR Side right Reps/Minutes 2x10 Comments cues for TKE Sidelying Exercises Sidelying SLR Side right Reps/Minutes x10 Comments manual cueing to decrease hip flexor involvement Sitting Exercises BAPS Side right Resistance L1 Reps/Minutes x10 ea dir Manual Therapy Treatment Joint Mobilizations talocrural Direction A-P Grade II PT-OP-T Assessment and Plan Start: 06/11/23 09:02 Freq: Status: Active Protocol: Document 06/18/23 13:30 AM (Rec: 06/18/23 17:26 AM [id number]) Physical Therapy Assessment Goals HEP [employer] Representative [employer] Goal (LTG) Pt independent with HEP LTG Duration 09/03/22 FAAM Impairment Pt with score of 17/84 on FAAM . Short Term Goal (STG) Pt with score of 30/84 on FAAM STG Duration 07/23/23 [employer] Goal (LTG) Pt with score of 50/84 on FAAM LTG Duration 09/03/22 Stairs Impairment Pt with step-to gait pattern. Short Term Goal (STG) Pt able to ascend/descend stairs with reciprocal gait pattern. STG Duration 07/23/23 Gait Impairment Pt ambulates 25% weight- bearing on R LE with JORY. Short Term Goal (STG) Pt able to ambulate >75% weightbearing on R LE with unilateral crutch STG Duration 07/23/23 [employer] Representative [employer] Goal (LTG) Pt able to ambulate without AD . LTG Duration 09/03/22 Pain Impairment Pt reporting 9/10 pain at the worst Short Term Goal (STG) Pt to report 6/10 at the worst STG Duration 07/23/23 [employer] Representative [employer] Goal (LTG) Pt to report 2/10 at the worst . LTG Duration 09/03/22 Assessment Summary Assessment Pt demonstrates hypersensitivity at R medial knee with light touch. Pt encouraged to do self-massage and ice cup to decrease sensitivity/discomfort. Pt demonstrates improving ankle mobility/coordination with BAPS board. Pt able to tolerate gentle ankle strengthening without increase in pain. Pt attempted to ambulate with unilateral crutch, though reported increase in pain. Pt would benefit from continued PT to progress R LE strength and mobility as tolerated. Physical Therapy Plan Frequency and Duration Frequency of Treatment 2x/Week Duration of treatment (weeks) 12 Plan of Care Start Date 06/11/23 Plan of Care End Date 09/03/23 Therapeutic Interventions Therapeutic Interventions Balance Training,Coordination Training,Gait Training,Home Exercise Program,Joint Mobilizations,Manual Therapy, Neuromuscular Re-education, Patient/Caregiver Education, Self-Care/Home Management,Soft Tissue Mobilization,Taping, Therapeutic Activities, Therapeutic Exercises Modalities Cold Pack/Ice Massage,Electric Stimulation,Hot Packs, Ultrasound Next Visit Focus/Plan Next Note Type Treatment Note Next Visit Plan Progress R LE strength, weight shifting on R LE, gait training,
--- NOTE | 2023-06-20 13:29 | PT.OTN ---
Current Diagnoses Displaced fracture of intermediate cuneiform of right foot, sequela (06/20/23) Displaced fracture of second metatarsal bone, right foot, sequela (06/20/23) Dislocation of tarsometatarsal joint of right foot, subsequent encounter (06/20/23) Disruption of external operation (surgical) wound, not elsewhere classified, subsequent encounter (06/20/23) Physical Therapy Treatment Note PT-OP-A Visit Information Start: 06/11/23 09:02 Freq: Status: Active Protocol: Document 06/20/23 13:29 AM (Rec: 06/20/23 14:23 AM [id number]) Out-Patient Physical Therapy Visit Information Visit Information Visit Type Treatment Note Visit Note 13 weeks until 06/27/23 Visit Start Time 13:30 Visit Stop Time 14:17 Total Visit Minutes 47 Visit Number 11/20 PT-OP-B Current Condition Start: 06/11/23 09:02 Freq: Status: Active Protocol: Document 06/11/23 12:21 AM (Rec: 06/11/23 17:58 AM [id number]) Current Condition History of Current Condition Onset Date Initial injury 02/22/23 Current Complaints R foot pain History of Current Condition Pt had R lisfranc fusion . Pt was helping someone move an armoire down the stairs. The armoire hit his foot. Pt reports that it shattered his foot. Pt's is on his 4th surgery with recent fusion. Pt then got an infection following the 3rd surgery, therefore had a 4th surgery to clean the area. Pt is now getting infusion antibiotics. Pt reports that he feels that the antibiotic fusions have cause joint stiffness elsewhere. Pt is going to be transitioning to an oral antibiotic to see if joint stiffness decreases. Pt reports that he also has R knee pain from prior surgery. He is now wearing a knee brace for that. Pain at R medial knee joint. Pt reports that he is cleared to increase weight -bearing through R LE, but only able to put 25% of his body weight on R LE while ambulating. Prior Treatments and Tests K-wire fixation of the 5th metatarsal tarsometatarsal joint. Screw and plate fixation of the 1st through 3rd tarsometatarsal joints. tarsometatarsal joints. Prior Functional Status Baseline Function- ADL's Independent Baseline Function- Mobility Independent Current Functional Impairments (Reported) Functional Limitations- ADL's Pt independent with ADLs Functional Limitations- Mobility/Gait Pt ambulating with JORY. Pt has stairs at home and had been Functional Limitations- Work/School Pt is retired PT-OP-C Subjective Start: 06/11/23 09:02 Freq: Status: Active Protocol: Document 06/20/23 13:29 AM (Rec: 06/20/23 14:23 AM [id number]) OP-PT Subjective Patient Comments Patient Comments Pt reports continued anterior ankle pain and lateral foot pain during gait. PT-OP-G Mobility & Gait Start: 06/11/23 09:02 Freq: Status: Active Protocol: Document 06/11/23 12:21 AM (Rec: 06/11/23 17:58 AM [id number]) OP Gait Assessment Gait Gait Assistance Required: Independent Assistive Devices Assistive Device Axillary Crutches Orthotic/Prosthetic Devices or Brace: Yes Gait Deviations General Gait Pattern Antalgic,Decreased Stride Length Comments Gait Comments Pt ambulates with R knee flexed and lack of heel strike /push-off. Stair Climbing Evaluation Evaluation Level of Assist On Stairs Standby Assistance Devices Stair Climbing Assistive Devices Axillary Crutches,Right Railing Technique/Endurance Stair Climbing Direction Ascend and Descend Stair Climbing Technique Step to Step Number of Steps Climbed 8 Comments Stair Climbing Comments Pt demonstrated ascending with R LE leading and descending with L LE leading. Pt cued to ascend with L leading and descend with R leading to decrease strain at R knee. Pt able to demonstrate safety with this. PT-OP-J Posture/Palpation/Skin Start: 06/11/23 09:02 Freq: Status: Active Protocol: Document 06/11/23 12:21 AM (Rec: 06/11/23 17:58 AM [id number]) Skin Assessment Edema Assessment Right Foot Edema Type Pitting Subjective Edema Description Tightness Incisional Assessment Incision Appearance/Comments Pt's incision sites are not full healed, though dry. Pt being treated for infection PT-OP-K Range of Motion Start: 06/11/23 09:02 Freq: Status: Active Protocol: Document 06/11/23 12:21 AM (Rec: 06/11/23 17:58 AM [id number]) Ankle and Foot Goniometric Range of Motion Ankle and Foot Right Active Testing Position Supine Dorsiflexion with Knee Extended 2 Plantarflexion 30 Inversion 20 Eversion 10 Comments 5th metatarsal pain R knee 120 deg (painful) Left Active Testing Position Supine Dorsiflexion with Knee Extended 12 Plantarflexion 48 Inversion 35 Eversion 15 PT-OP-M Strength Start: 06/11/23 09:02 Freq: Status: Active Protocol: Document 06/11/23 12:21 AM (Rec: 06/11/23 17:58 AM [id number]) Ankle/Foot Strength Ankle and Foot Manual Muscle Testing Right Comments NT secondary to pain Left Dorsiflexion (L4) 5 Normal Plantarflexion (S1) 5 Normal Inversion 5 Normal Eversion (S1) 5 Normal PT-OP-Q Treatments Start: 06/11/23 09:02 Freq: Status: Active Protocol: Document 06/20/23 13:29 AM (Rec: 06/20/23 14:23 AM [id number]) Cardio Equipment Recumbent Stepper (Sci-Fit) Duration (Minutes) 6 Resistance 3 Gym Equipment Shuttle Recovery unilateral squat Resistance 25# (navy) Shuttle Recovery Platform Stable Reps/Time 2x10 Bilateral Squats Resistance 50# (2 [employer]) Shuttle Recovery Platform Stable Reps/Time 2x10 Therapeutic Exercises Supine Exercises 4-way ankle Supine Exercise Name resisted with DF and PF, inv, ev Side right Resistance [place] TB and AROM Reps/Minutes x10 ea SLR Side right Reps/Minutes 2x10 Comments cues for TKE Sidelying Exercises Sidelying SLR Side right Reps/Minutes x10 Comments manual cueing to decrease hip flexor involvement Manual Therapy Treatment Joint Mobilizations talocrural Direction A-P Grade III Body Position Supine Comments Supine and standing with foot on step with MWM. PT-OP-T Assessment and Plan Start: 06/11/23 09:02 Freq: Status: Active Protocol: Document 06/20/23 13:29 AM (Rec: 06/20/23 14:23 AM [id number]) Physical Therapy Assessment Goals HEP [facility] Goal (LTG) Pt independent with HEP LTG Duration 09/03/22 FAAM Impairment Pt with score of 17/84 on FAAM . Short Term Goal (STG) Pt with score of 30/84 on FAAM STG Duration 07/23/23 Senior Warehouse Clerk Goal (LTG) Pt with score of 50/84 on FAAM LTG Duration 09/03/22 Stairs Impairment Pt with step-to gait pattern. Short Term Goal (STG) Pt able to ascend/descend stairs with reciprocal gait pattern. STG Duration 07/23/23 Gait Impairment Pt ambulates 25% weight- bearing on R LE with JORY. Short Term Goal (STG) Pt able to ambulate >75% weightbearing on R LE with unilateral crutch STG Duration 07/23/23 Senior Warehouse Clerk Goal (LTG) Pt able to ambulate without AD . LTG Duration 09/03/22 Pain Impairment Pt reporting 9/10 pain at the worst Short Term Goal (STG) Pt to report 6/10 at the worst STG Duration 07/23/23 [facility] Goal (LTG) Pt to report 2/10 at the worst . LTG Duration 09/03/22 Assessment Summary Assessment Pt tolerated PRE well today. Pt with reported decreased anterior ankle impingement following tx session today. Pt tolerated A-P TC MWM well with improved mobility with repetitions. Pt tolerated shuttle squat well, though required cueing for knee control into TKE. Pt will return to PT next week to continued to progress R LE strength and mobility as tolerated. Physical Therapy Plan Frequency and Duration Frequency of Treatment 2x/Week Duration of treatment (weeks) 12 Plan of Care Start Date 06/11/23 Plan of Care End Date 09/03/23 Therapeutic Interventions Therapeutic Interventions Balance Training,Coordination Training,Gait Training,Home Exercise Program,Joint Mobilizations,Manual Therapy, Neuromuscular Re-education, Patient/Caregiver Education, Self-Care/Home Management,Soft Tissue Mobilization,Taping, Therapeutic Activities, Therapeutic Exercises Modalities Cold Pack/Ice Massage,Electric Stimulation,Hot Packs, Ultrasound Next Visit Focus/Plan Next Note Type Treatment Note Next Visit Plan Progress R LE strength, weight shifting on R LE, gait training,
--- NOTE | 2023-06-23 11:34 | PT.OTN ---
Current Diagnoses Displaced fracture of intermediate cuneiform of right foot, sequela (06/23/23) Displaced fracture of second metatarsal bone, right foot, sequela (06/23/23) Dislocation of tarsometatarsal joint of right foot, subsequent encounter (06/23/23) Disruption of external operation (surgical) wound, not elsewhere classified, subsequent encounter (06/23/23) Physical Therapy Treatment Note PT-OP-A Visit Information Start: 06/11/23 09:02 Freq: Status: Active Protocol: Document 06/23/23 11:34 AM (Rec: 06/23/23 13:51 AM [id number]) Out-Patient Physical Therapy Visit Information Visit Information Visit Type Treatment Note Visit Note 13 weeks until 06/27/23 Visit Start Time 11:34 Visit Stop Time 12:18 Total Visit Minutes 44 Visit Number 12/20 PT-OP-B Current Condition Start: 06/11/23 09:02 Freq: Status: Active Protocol: Document 06/11/23 12:21 AM (Rec: 06/11/23 17:58 AM [id number]) Current Condition History of Current Condition Onset Date Initial injury 02/22/23 Current Complaints R foot pain History of Current Condition Pt had R lisfranc fusion . Pt was helping someone move an armoire down the stairs. The armoire hit his foot. Pt reports that it shattered his foot. Pt's is on his 4th surgery with recent fusion. Pt then got an infection following the 3rd surgery, therefore had a 4th surgery to clean the area. Pt is now getting infusion antibiotics. Pt reports that he feels that the antibiotic fusions have cause joint stiffness elsewhere. Pt is going to be transitioning to an oral antibiotic to see if joint stiffness decreases. Pt reports that he also has R knee pain from prior surgery. He is now wearing a knee brace for that. Pain at R medial knee joint. Pt reports that he is cleared to increase weight -bearing through R LE, but only able to put 25% of his body weight on R LE while ambulating. Prior Treatments and Tests K-wire fixation of the 5th metatarsal tarsometatarsal joint. Screw and plate fixation of the 1st through 3rd tarsometatarsal joints. tarsometatarsal joints. Prior Functional Status Baseline Function- ADL's Independent Baseline Function- Mobility Independent Current Functional Impairments (Reported) Functional Limitations- ADL's Pt independent with ADLs Functional Limitations- Mobility/Gait Pt ambulating with JORY. Pt has stairs at home and had been Functional Limitations- Work/School Pt is retired PT-OP-C Subjective Start: 06/11/23 09:02 Freq: Status: Active Protocol: Document 06/23/23 11:34 AM (Rec: 06/23/23 13:51 AM [id number]) OP-PT Subjective Patient Comments Patient Comments Pt reports the lateral part of foot was sore after last session. Pt reports that he has communicated this pain with his surgeon. Pt reports that his pain at his knee has decreased, though continues to get up to 6/10 at the worst. The pain typically is momentarily with certain movements. Pt reports that his foot pain has been 4/10 at the worst. PT-OP-G Mobility & Gait Start: 06/11/23 09:02 Freq: Status: Active Protocol: Document 06/11/23 12:21 AM (Rec: 06/11/23 17:58 AM [id number]) OP Gait Assessment Gait Gait Assistance Required: Independent Assistive Devices Assistive Device Axillary Crutches Orthotic/Prosthetic Devices or Brace: Yes Gait Deviations General Gait Pattern Antalgic,Decreased Stride Length Comments Gait Comments Pt ambulates with R knee flexed and lack of heel strike /push-off. Stair Climbing Evaluation Evaluation Level of Assist On Stairs Standby Assistance Devices Stair Climbing Assistive Devices Axillary Crutches,Right Railing Technique/Endurance Stair Climbing Direction Ascend and Descend Stair Climbing Technique Step to Step Number of Steps Climbed 8 Comments Stair Climbing Comments Pt demonstrated ascending with R LE leading and descending with L LE leading. Pt cued to ascend with L leading and descend with R leading to decrease strain at R knee. Pt able to demonstrate safety with this. PT-OP-J Posture/Palpation/Skin Start: 06/11/23 09:02 Freq: Status: Active Protocol: Document 06/11/23 12:21 AM (Rec: 06/11/23 17:58 AM [id number]) Skin Assessment Edema Assessment Right Foot Edema Type Pitting Subjective Edema Description Tightness Incisional Assessment Incision Appearance/Comments Pt's incision sites are not full healed, though dry. Pt being treated for infection PT-OP-K Range of Motion Start: 06/11/23 09:02 Freq: Status: Active Protocol: Document 06/23/23 11:34 AM (Rec: 06/23/23 13:51 AM [id number]) Knee Goniometric Range of Motion Knee Right Flexion Active (degrees) 125 Extension Active (degrees) 5 Left Flexion Active (degrees) 135 Extension Passive (degrees) 0 PT-OP-M Strength Start: 06/11/23 09:02 Freq: Status: Active Protocol: Document 06/11/23 12:21 AM (Rec: 06/11/23 17:58 AM [id number]) Ankle/Foot Strength Ankle and Foot Manual Muscle Testing Right Comments NT secondary to pain Left Dorsiflexion (L4) 5 Normal Plantarflexion (S1) 5 Normal Inversion 5 Normal Eversion (S1) 5 Normal PT-OP-Q Treatments Start: 06/11/23 09:02 Freq: Status: Active Protocol: Document 06/23/23 11:34 AM (Rec: 06/23/23 13:51 AM [id number]) Cardio Equipment Recumbent Stepper (Sci-Fit) Duration (Minutes) 6 Resistance 3.5 Gym Equipment Shuttle Recovery unilateral squat Details attempted 37#, though painful at R knee Resistance 25# (navy) Shuttle Recovery Platform Stable Reps/Time 2x15 Bilateral Squats Resistance 62# (2 navy) Shuttle Recovery Platform Stable Reps/Time 2x20 Therapeutic Exercises Supine Exercises Bridge Reps/Minutes 2x10 4-way ankle Supine Exercise Name resisted with DF and PF, inv, ev Side right Resistance [place] TB Reps/Minutes x15 ea SLR Side right Reps/Minutes 2x10 Comments cues for TKE Quad set Side right Equipment Used towel roll under knee Reps/Minutes 10x5 sec Sitting Exercises BAPS Side right Resistance L1 Reps/Minutes x10 ea dir Manual Therapy Treatment Joint Mobilizations talocrural Direction A-P Grade III Body Position Supine Comments foot on step with MWM. PT-OP-T Assessment and Plan Start: 06/11/23 09:02 Freq: Status: Active Protocol: Document 06/23/23 11:34 AM (Rec: 06/23/23 13:51 AM [id number]) Physical Therapy Assessment Goals HEP Alf Goal (LTG) Pt independent with HEP LTG Duration 09/03/22 FAAM Impairment Pt with score of 17/84 on FAAM . Short Term Goal (STG) Pt with score of 30/84 on FAAM STG Duration 07/23/23 Merchandising Team Lead Goal (LTG) Pt with score of 50/84 on FAAM LTG Duration 09/03/22 Stairs Impairment Pt with step-to gait pattern. Short Term Goal (STG) Pt able to ascend/descend stairs with reciprocal gait pattern. STG Duration 07/23/23 Gait Impairment Pt ambulates 25% weight- bearing on R LE with JORY. Short Term Goal (STG) Pt able to ambulate >75% weightbearing on R LE with unilateral crutch STG Duration 07/23/23 Merchandising Team Lead Goal (LTG) Pt able to ambulate without AD . LTG Duration 09/03/22 Pain Impairment Pt reporting 9/10 pain at the worst Short Term Goal (STG) Pt to report 6/10 at the worst STG Duration 07/23/23 Alf Goal (LTG) Pt to report 2/10 at the worst . LTG Duration 09/03/22 Assessment Summary Assessment Pt's incision sites are mostly healed, with 1 mm sized area of healing tissue at dorsal and medial scars. Pt demonstrates continued limitations in R knee extension mobility, though improving. Pt with discomfort with TKE, though able to tolerate quad set with towel roll behind knee. Pt with improving ankle mobility and control. Pt with improved tolerance to ambulating with unilateral crutch, though demonstrates decreased stride length and ora. Pt continues to be stiff into ankle dorsiflexion. Pt would benefit from continued PT to progress R LE strength and mobility for functional tasks and gait. Physical Therapy Plan Frequency and Duration Frequency of Treatment 2x/Week Duration of treatment (weeks) 12 Plan of Care Start Date 06/11/23 Plan of Care End Date 09/03/23 Therapeutic Interventions Therapeutic Interventions Balance Training,Coordination Training,Gait Training,Home Exercise Program,Joint Mobilizations,Manual Therapy, Neuromuscular Re-education, Patient/Caregiver Education, Self-Care/Home Management,Soft Tissue Mobilization,Taping, Therapeutic Activities, Therapeutic Exercises Modalities Cold Pack/Ice Massage,Electric Stimulation,Hot Packs, Ultrasound Next Visit Focus/Plan Next Note Type Treatment Note Next Visit Plan Progress R LE strength, weight shifting on R LE, gait training,
--- NOTE | 2023-06-26 16:46 | PT.OTN ---
Current Diagnoses Displaced fracture of intermediate cuneiform of right foot, sequela (06/26/23) Displaced fracture of second metatarsal bone, right foot, sequela (06/26/23) Dislocation of tarsometatarsal joint of right foot, subsequent encounter (06/26/23) Disruption of external operation (surgical) wound, not elsewhere classified, subsequent encounter (06/26/23) Physical Therapy Treatment Note PT-OP-A Visit Information Start: 06/11/23 09:02 Freq: Status: Active Protocol: Document 06/26/23 16:46 AM (Rec: 06/26/23 17:53 AM [id number]) Out-Patient Physical Therapy Visit Information Visit Information Visit Type Treatment Note Visit Note 13 weeks until 06/27/23 Visit Start Time 16:47 Visit Stop Time 17:32 Total Visit Minutes 45 Visit Number 01/20 PT-OP-B Current Condition Start: 06/11/23 09:02 Freq: Status: Active Protocol: Document 06/11/23 12:21 AM (Rec: 06/11/23 17:58 AM [id number]) Current Condition History of Current Condition Onset Date Initial injury 02/22/23 Current Complaints R foot pain History of Current Condition Pt had R lisfranc fusion . Pt was helping someone move an armoire down the stairs. The armoire hit his foot. Pt reports that it shattered his foot. Pt's is on his 4th surgery with recent fusion. Pt then got an infection following the 3rd surgery, therefore had a 4th surgery to clean the area. Pt is now getting infusion antibiotics. Pt reports that he feels that the antibiotic fusions have cause joint stiffness elsewhere. Pt is going to be transitioning to an oral antibiotic to see if joint stiffness decreases. Pt reports that he also has R knee pain from prior surgery. He is now wearing a knee brace for that. Pain at R medial knee joint. Pt reports that he is cleared to increase weight -bearing through R LE, but only able to put 25% of his body weight on R LE while ambulating. Prior Treatments and Tests K-wire fixation of the 5th metatarsal tarsometatarsal joint. Screw and plate fixation of the 1st through 3rd tarsometatarsal joints. tarsometatarsal joints. Prior Functional Status Baseline Function- ADL's Independent Baseline Function- Mobility Independent Current Functional Impairments (Reported) Functional Limitations- ADL's Pt independent with ADLs Functional Limitations- Mobility/Gait Pt ambulating with JORY. Pt has stairs at home and had been Functional Limitations- Work/School Pt is retired PT-OP-C Subjective Start: 06/11/23 09:02 Freq: Status: Active Protocol: Document 06/26/23 16:46 AM (Rec: 06/26/23 17:53 AM [id number]) OP-PT Subjective Patient Comments Patient Comments Pt reports that he typically feels more sore the morning after PT for 2 hours, though often has decreased discomfort and improved mobility immediately following PT. PT-OP-G Mobility & Gait Start: 06/11/23 09:02 Freq: Status: Active Protocol: Document 06/11/23 12:21 AM (Rec: 06/11/23 17:58 AM [id number]) OP Gait Assessment Gait Gait Assistance Required: Independent Assistive Devices Assistive Device Axillary Crutches Orthotic/Prosthetic Devices or Brace: Yes Gait Deviations General Gait Pattern Antalgic,Decreased Stride Length Comments Gait Comments Pt ambulates with R knee flexed and lack of heel strike /push-off. Stair Climbing Evaluation Evaluation Level of Assist On Stairs Standby Assistance Devices Stair Climbing Assistive Devices Axillary Crutches,Right Railing Technique/Endurance Stair Climbing Direction Ascend and Descend Stair Climbing Technique Step to Step Number of Steps Climbed 8 Comments Stair Climbing Comments Pt demonstrated ascending with R LE leading and descending with L LE leading. Pt cued to ascend with L leading and descend with R leading to decrease strain at R knee. Pt able to demonstrate safety with this. PT-OP-J Posture/Palpation/Skin Start: 06/11/23 09:02 Freq: Status: Active Protocol: Document 06/11/23 12:21 AM (Rec: 06/11/23 17:58 AM [id number]) Skin Assessment Edema Assessment Right Foot Edema Type Pitting Subjective Edema Description Tightness Incisional Assessment Incision Appearance/Comments Pt's incision sites are not full healed, though dry. Pt being treated for infection PT-OP-K Range of Motion Start: 06/11/23 09:02 Freq: Status: Active Protocol: Document 06/23/23 11:34 AM (Rec: 06/23/23 13:51 AM [id number]) Knee Goniometric Range of Motion Knee Right Flexion Active (degrees) 125 Extension Active (degrees) 5 Left Flexion Active (degrees) 135 Extension Passive (degrees) 0 PT-OP-M Strength Start: 06/11/23 09:02 Freq: Status: Active Protocol: Document 06/11/23 12:21 AM (Rec: 06/11/23 17:58 AM [id number]) Ankle/Foot Strength Ankle and Foot Manual Muscle Testing Right Comments NT secondary to pain Left Dorsiflexion (L4) 5 Normal Plantarflexion (S1) 5 Normal Inversion 5 Normal Eversion (S1) 5 Normal PT-OP-Q Treatments Start: 06/11/23 09:02 Freq: Status: Active Protocol: Document 06/26/23 16:46 AM (Rec: 06/26/23 17:53 AM [id number]) Cardio Equipment Recumbent Stepper (Sci-Fit) Duration (Minutes) 6 Resistance 4.2 Seat Position 14 Gym Equipment Shuttle Recovery unilateral squat Details 25# Resistance 25# (navy) Shuttle Recovery Platform Stable Reps/Time 2x30 sec Bilateral Squats Resistance 62# (2 navy) Shuttle Recovery Platform Stable Reps/Time 2x1 min Therapeutic Exercises Supine Exercises 4-way ankle Supine Exercise Name resisted with DF and PF Side right Resistance [place] TB Reps/Minutes x20 Sitting Exercises BAPS Side right Resistance L2 Reps/Minutes x10 ea dir Standing Exercises Standing weight shift Standing Exercise Name Weight shift on to R LE as tolerated without boot Equipment Used railing Standing hip ext Side right Equipment Used railing Reps/Minutes 2x10 Standing hip abd Side right Equipment Used railing Reps/Minutes 2x10 Manual Therapy Treatment Joint Mobilizations talocrural Direction A-P Grade III Body Position Standing Reps/Duration 1 min Comments Foot on step with MVM to improve DF during gait Manual Techniques Hamstring stretch Reps/Duration 2x30 sec Comments With ankle pump for neural glide Luis hip flexor stretch Type [place] hip flexor stretch Reps/Duration 2x30 sec PT-OP-T Assessment and Plan Start: 06/11/23 09:02 Freq: Status: Active Protocol: Document 06/26/23 16:46 AM (Rec: 06/26/23 17:53 AM [id number]) Physical Therapy Assessment Goals HEP Fdc Goal (LTG) Pt independent with HEP LTG Duration 09/03/22 FAAM Impairment Pt with score of 17/84 on FAAM . Short Term Goal (STG) Pt with score of 30/84 on FAAM STG Duration 07/23/23 Rcis Goal (LTG) Pt with score of 50/84 on FAAM LTG Duration 09/03/22 Stairs Impairment Pt with step-to gait pattern. Short Term Goal (STG) Pt able to ascend/descend stairs with reciprocal gait pattern. STG Duration 07/23/23 Gait Impairment Pt ambulates 25% weight- bearing on R LE with JORY. Short Term Goal (STG) Pt able to ambulate >75% weightbearing on R LE with unilateral crutch STG Duration 07/23/23 Rcis Goal (LTG) Pt able to ambulate without AD . LTG Duration 09/03/22 Pain Impairment Pt reporting 9/10 pain at the worst Short Term Goal (STG) Pt to report 6/10 at the worst STG Duration 07/23/23 Rcis Goal (LTG) Pt to report 2/10 at the worst . LTG Duration 09/03/22 Assessment Summary Assessment Pt demonstrates improving DF mobility. Pt continues to demonstrates knee discomfort with TKE. Pt with production of lateral knee symptoms with standing hip abduction. Luis test indicated stiffness of R hip flexors. Pt demonstrates continued difficulty with ambulation with unilateral crutch, secondary to discomfort at R foot. Pt would benefit from continued PT to progress R LE strength and mobility as tolerated. Physical Therapy Plan Frequency and Duration Frequency of Treatment 2x/Week Duration of treatment (weeks) 12 Plan of Care Start Date 06/11/23 Plan of Care End Date 09/03/23 Therapeutic Interventions Therapeutic Interventions Balance Training,Coordination Training,Gait Training,Home Exercise Program,Joint Mobilizations,Manual Therapy, Neuromuscular Re-education, Patient/Caregiver Education, Self-Care/Home Management,Soft Tissue Mobilization,Taping, Therapeutic Activities, Therapeutic Exercises Modalities Cold Pack/Ice Massage,Electric Stimulation,Hot Packs, Ultrasound Next Visit Focus/Plan Next Note Type Treatment Note Next Visit Plan Progress R LE strength, weight shifting on R LE, gait training,
--- NOTE | 2023-07-09 10:38 | PT.OTN ---
Current Diagnoses Displaced fracture of intermediate cuneiform of right foot, sequela (07/09/23) Displaced fracture of second metatarsal bone, right foot, sequela (07/09/23) Dislocation of tarsometatarsal joint of right foot, subsequent encounter (07/09/23) Disruption of external operation (surgical) wound, not elsewhere classified, subsequent encounter (07/09/23) Physical Therapy Treatment Note PT-OP-A Visit Information Start: 06/11/23 09:02 Freq: Status: Active Protocol: Document 07/09/23 09:53 SP (Rec: 07/09/23 10:40 SP [id number]) Out-Patient Physical Therapy Visit Information Visit Information Visit Type Treatment Note Visit Start Time 09:53 Visit Stop Time 10:38 Total Visit Minutes 38 Visit Number 03/22 Number of WAREHOUSE GUARD Visits 1 Evaluation Information Evaluation Date 06/11/23 Precautions Precautions Pt with IV infusions for infection, Gradual increase weight-bearing as tolerated 02/22/23: initial surgery R foot. 03/21/23: s/p R lisfranc fusion 05/26/23: 25% WB in boot, with increase WB weekly. Once full WB in boot, start weaning to shoe /c arch support (midfoot fused). Cleared for AROM and strengthening. PT-OP-B Current Condition Start: 06/11/23 09:02 Freq: Status: Active Protocol: Document 06/11/23 12:21 AM (Rec: 06/11/23 17:58 AM [id number]) Current Condition History of Current Condition Onset Date Initial injury 02/22/23 Current Complaints R foot pain History of Current Condition Pt had R lisfranc fusion . Pt was helping someone move an armoire down the stairs. The armoire hit his foot. Pt reports that it shattered his foot. Pt's is on his 4th surgery with recent fusion. Pt then got an infection following the 3rd surgery, therefore had a 4th surgery to clean the area. Pt is now getting infusion antibiotics. Pt reports that he feels that the antibiotic fusions have cause joint stiffness elsewhere. Pt is going to be transitioning to an oral antibiotic to see if joint stiffness decreases. Pt reports that he also has R knee pain from prior surgery. He is now wearing a knee brace for that. Pain at R medial knee joint. Pt reports that he is cleared to increase weight -bearing through R LE, but only able to put 25% of his body weight on R LE while ambulating. Prior Treatments and Tests K-wire fixation of the 5th metatarsal tarsometatarsal joint. Screw and plate fixation of the 1st through 3rd tarsometatarsal joints. tarsometatarsal joints. Prior Functional Status Baseline Function- ADL's Independent Baseline Function- Mobility Independent Current Functional Impairments (Reported) Functional Limitations- ADL's Pt independent with ADLs Functional Limitations- Mobility/Gait Pt ambulating with JORY. Pt has stairs at home and had been Functional Limitations- Work/School Pt is retired PT-OP-C Subjective Start: 06/11/23 09:02 Freq: Status: Active Protocol: Document 07/09/23 09:53 SP (Rec: 07/09/23 10:40 SP [id number]) OP-PT Subjective Patient Comments Patient Comments Pt reports still wearing his boot and arrives using 2 crutches. He was told when last saw physician can walk around with his sneaker or cast shoe with 1 crutch. PT-OP-G Mobility & Gait Start: 06/11/23 09:02 Freq: Status: Active Protocol: Document 06/11/23 12:21 AM (Rec: 06/11/23 17:58 AM [id number]) OP Gait Assessment Gait Gait Assistance Required: Independent Assistive Devices Assistive Device Axillary Crutches Orthotic/Prosthetic Devices or Brace: Yes Gait Deviations General Gait Pattern Antalgic,Decreased Stride Length Comments Gait Comments Pt ambulates with R knee flexed and lack of heel strike /push-off. Stair Climbing Evaluation Evaluation Level of Assist On Stairs Standby Assistance Devices Stair Climbing Assistive Devices Axillary Crutches,Right Railing Technique/Endurance Stair Climbing Direction Ascend and Descend Stair Climbing Technique Step to Step Number of Steps Climbed 8 Comments Stair Climbing Comments Pt demonstrated ascending with R LE leading and descending with L LE leading. Pt cued to ascend with L leading and descend with R leading to decrease strain at R knee. Pt able to demonstrate safety with this. PT-OP-J Posture/Palpation/Skin Start: 06/11/23 09:02 Freq: Status: Active Protocol: Document 06/11/23 12:21 AM (Rec: 06/11/23 17:58 AM [id number]) Skin Assessment Edema Assessment Right Foot Edema Type Pitting Subjective Edema Description Tightness Incisional Assessment Incision Appearance/Comments Pt's incision sites are not full healed, though dry. Pt being treated for infection PT-OP-K Range of Motion Start: 06/11/23 09:02 Freq: Status: Active Protocol: Document 07/01/23 09:03 AM (Rec: 07/01/23 13:08 AM [id number]) Knee Goniometric Range of Motion Knee Right Flexion Active (degrees) 135 Extension Active (degrees) 0 Ankle and Foot Goniometric Range of Motion Ankle and Foot Right Active Dorsiflexion with Knee Extended 2 PT-OP-M Strength Start: 06/11/23 09:02 Freq: Status: Active Protocol: Document 06/11/23 12:21 AM (Rec: 06/11/23 17:58 AM [id number]) Ankle/Foot Strength Ankle and Foot Manual Muscle Testing Right Comments NT secondary to pain Left Dorsiflexion (L4) 5 Normal Plantarflexion (S1) 5 Normal Inversion 5 Normal Eversion (S1) 5 Normal PT-OP-Q Treatments Start: 06/11/23 09:02 Freq: Status: Active Protocol: Document 07/09/23 09:53 SP (Rec: 07/09/23 10:40 SP [id number]) Therapeutic Exercises Supine Exercises 4-way ankle Supine Exercise Name resisted DF and PF, IV, EV Side right Resistance OTB Reps/Minutes x20 Sitting Exercises ankle IV/EV Sitting Exercise Name windshield wipers Side right Resistance AROM Reps/Minutes x10 Comments cued slow ROM, heel contact toe scrunch Sitting Exercise Name a Gait Training Gait Activity Crutches Device Used B crutches> 1 crutch Level of Assistance I Distance/Duration 20 ft end tx Treatment Focus increase 75% WB in tejeda /c 1 crutch Comments Pt demonstrates decrease stance time R LE in boot. Manual Therapy Treatment Soft Tissue Mobilization R ankle Body Location tib ant, Comments and self scar mob Body Location R 1st MTP and dorsal foot Mobilization Type Myofascial Release Intensity/Depth Moderate Body Position Sitting Comments manual and ed self application Joint Mobilizations MTPs Joint 1-5 Direction gentle AP, PA Grade II Body Position seated Comments therapist manual and ed self talocrural Direction A-P Grade III Body Position Standing Reps/Duration 1 min Comments supine and Foot on step with MVM to improve DF during gait PT-OP-T Assessment and Plan Start: 06/11/23 09:02 Freq: Status: Active Protocol: Document 07/09/23 09:53 SP (Rec: 07/09/23 10:40 SP [id number]) Physical Therapy Assessment Goals HEP Ring Sewer Goal (LTG) Pt independent with HEP LTG Duration 09/03/22 FAAM Impairment Pt with score of 17/84 on FAAM . Short Term Goal (STG) Pt with score of 30/84 on FAAM STG Duration 07/23/23 Ring Sewer Goal (LTG) Pt with score of 50/84 on FAAM LTG Duration 09/03/22 Stairs Impairment Pt with step-to gait pattern. Short Term Goal (STG) Pt able to ascend/descend stairs with reciprocal gait pattern. STG Duration 07/23/23 Gait Impairment Pt ambulates 25% weight- bearing on R LE with JORY. Short Term Goal (STG) Pt able to ambulate >75% weightbearing on R LE with unilateral crutch STG Duration 07/23/23 Ring Sewer Goal (LTG) Pt able to ambulate without AD . LTG Duration 09/03/22 Pain Impairment Pt reporting 9/10 pain at the worst Short Term Goal (STG) Pt to report 6/10 at the worst STG Duration 07/23/23 Mcc Goal (LTG) Pt to report 2/10 at the worst . LTG Duration 09/03/22 Assessment Summary Assessment Pt stated thought he was 50% WB still. See referral progression from surgeon 25% WB 05/26/23, progress 25% weekly until FWB with boot then wean off boot. Pt should be full WB at this point. Discussed bring post op cast shoe or sneaker with & arch/ ankle support next tx. He tolerated ther ex but reported very tiring and some discomfort with added intrinsic toe scrunches, ankle IV/ER and increase Lv2 TB 4 way ankle. Pt responded well to manual and ther ex with extra education on level of activity should be at FWB and no AD, will progress next few treatments off boot with tolerant activity. Physical Therapy Plan Frequency and Duration Frequency of Treatment 2x/Week Duration of treatment (weeks) 12 Plan of Care Start Date 06/11/23 Plan of Care End Date 09/03/23 Therapeutic Interventions Therapeutic Interventions Balance Training,Coordination Training,Gait Training,Home Exercise Program,Joint Mobilizations,Manual Therapy, Neuromuscular Re-education, Patient/Caregiver Education, Self-Care/Home Management,Soft Tissue Mobilization,Taping, Therapeutic Activities, Therapeutic Exercises Modalities Cold Pack/Ice Massage,Electric Stimulation,Hot Packs, Ultrasound Next Visit Focus/Plan Next Note Type Treatment Note Next Visit Plan * FWB as of 2nd week Nov, wean boot. Next tx: bike warm up with sneaker, heel toe walking without AD, squats, step ups , gait mechanics. Manual needed, bridges. Progress R LE strength, weight shifting on R LE, gait training,
--- NOTE | 2023-07-23 16:45 | PT.OTN ---
Current Diagnoses Displaced fracture of intermediate cuneiform of right foot, sequela (07/23/23) Displaced fracture of second metatarsal bone, right foot, sequela (07/23/23) Dislocation of tarsometatarsal joint of right foot, subsequent encounter (07/23/23) Disruption of external operation (surgical) wound, not elsewhere classified, subsequent encounter (07/23/23) Physical Therapy Treatment Note PT-OP-A Visit Information Start: 06/11/23 09:02 Freq: Status: Active Protocol: Document 07/23/23 13:44 SW (Rec: 07/23/23 14:33 SW [id number]) Out-Patient Physical Therapy Visit Information Visit Information Visit Type Treatment Note Visit Start Time 13:45 Visit Stop Time 14:29 Total Visit Minutes 44 Visit Number 04/22 Number of TUGGER OPERATOR Visits 2 Precautions Precautions Pt with IV infusions for infection, Gradual increase weight-bearing as tolerated 02/22/23: initial surgery R foot. 03/21/23: s/p R lisfranc fusion 05/26/23: 25% WB in boot, with increase WB weekly. Once full WB in boot, start weaning to shoe /c arch support (midfoot fused). Cleared for AROM and strengthening. PT-OP-B Current Condition Start: 06/11/23 09:02 Freq: Status: Active Protocol: Document 06/11/23 12:21 AM (Rec: 06/11/23 17:58 AM [id number]) Current Condition History of Current Condition Onset Date Initial injury 02/22/23 Current Complaints R foot pain History of Current Condition Pt had R lisfranc fusion . Pt was helping someone move an armoire down the stairs. The armoire hit his foot. Pt reports that it shattered his foot. Pt's is on his 4th surgery with recent fusion. Pt then got an infection following the 3rd surgery, therefore had a 4th surgery to clean the area. Pt is now getting infusion antibiotics. Pt reports that he feels that the antibiotic fusions have cause joint stiffness elsewhere. Pt is going to be transitioning to an oral antibiotic to see if joint stiffness decreases. Pt reports that he also has R knee pain from prior surgery. He is now wearing a knee brace for that. Pain at R medial knee joint. Pt reports that he is cleared to increase weight -bearing through R LE, but only able to put 25% of his body weight on R LE while ambulating. Prior Treatments and Tests K-wire fixation of the 5th metatarsal tarsometatarsal joint. Screw and plate fixation of the 1st through 3rd tarsometatarsal joints. tarsometatarsal joints. Prior Functional Status Baseline Function- ADL's Independent Baseline Function- Mobility Independent Current Functional Impairments (Reported) Functional Limitations- ADL's Pt independent with ADLs Functional Limitations- Mobility/Gait Pt ambulating with JORY. Pt has stairs at home and had been Functional Limitations- Work/School Pt is retired PT-OP-C Subjective Start: 06/11/23 09:02 Freq: Status: Active Protocol: Document 07/23/23 13:44 SW (Rec: 07/23/23 14:33 SW [id number]) OP-PT Subjective Patient Comments Patient Comments Pt reports pain after walking for a distance inside home w/ out boot. Dons boot when leaving home. Pain mainly in big toe, and medial calcaneal area with walking with boot doffed. PT-OP-G Mobility & Gait Start: 06/11/23 09:02 Freq: Status: Active Protocol: Document 06/11/23 12:21 AM (Rec: 06/11/23 17:58 AM [id number]) OP Gait Assessment Gait Gait Assistance Required: Independent Assistive Devices Assistive Device Axillary Crutches Orthotic/Prosthetic Devices or Brace: Yes Gait Deviations General Gait Pattern Antalgic,Decreased Stride Length Comments Gait Comments Pt ambulates with R knee flexed and lack of heel strike /push-off. Stair Climbing Evaluation Evaluation Level of Assist On Stairs Standby Assistance Devices Stair Climbing Assistive Devices Axillary Crutches,Right Railing Technique/Endurance Stair Climbing Direction Ascend and Descend Stair Climbing Technique Step to Step Number of Steps Climbed 8 Comments Stair Climbing Comments Pt demonstrated ascending with R LE leading and descending with L LE leading. Pt cued to ascend with L leading and descend with R leading to decrease strain at R knee. Pt able to demonstrate safety with this. PT-OP-J Posture/Palpation/Skin Start: 06/11/23 09:02 Freq: Status: Active Protocol: Document 06/11/23 12:21 AM (Rec: 06/11/23 17:58 AM [id number]) Skin Assessment Edema Assessment Right Foot Edema Type Pitting Subjective Edema Description Tightness Incisional Assessment Incision Appearance/Comments Pt's incision sites are not full healed, though dry. Pt being treated for infection PT-OP-K Range of Motion Start: 06/11/23 09:02 Freq: Status: Active Protocol: Document 07/01/23 09:03 AM (Rec: 07/01/23 13:08 AM [id number]) Knee Goniometric Range of Motion Knee Right Flexion Active (degrees) 135 Extension Active (degrees) 0 Ankle and Foot Goniometric Range of Motion Ankle and Foot Right Active Dorsiflexion with Knee Extended 2 PT-OP-M Strength Start: 06/11/23 09:02 Freq: Status: Active Protocol: Document 06/11/23 12:21 AM (Rec: 06/11/23 17:58 AM [id number]) Ankle/Foot Strength Ankle and Foot Manual Muscle Testing Right Comments NT secondary to pain Left Dorsiflexion (L4) 5 Normal Plantarflexion (S1) 5 Normal Inversion 5 Normal Eversion (S1) 5 Normal PT-OP-Q Treatments Start: 06/11/23 09:02 Freq: Status: Active Protocol: Document 07/23/23 13:44 SW (Rec: 07/23/23 14:33 SW [id number]) Therapeutic Exercises Supine Exercises 4-way ankle Supine Exercise Name resisted DF and PF, disct'd IV /EV w/ resist d/t strength deficits AROM Side right Resistance OTB Reps/Minutes x20 Sitting Exercises ankle IV/EV Sitting Exercise Name [facility] hospitals[facility] wipers Side right Resistance AROM Reps/Minutes x10 Comments cued slow ROM, heel contact toe scrunch Sitting Exercise Name Towel scrunch Side right Comments pn in big toe, medial foot Gait Training Gait Activity Crutches Device Used 1 crutch Level of Assistance I Distance/Duration 2 x 115' Treatment Focus increase 75% WB in boot /c 1 crutch Comments Pt demonstrates decrease stance time R LE in boot. focused on stance timing, step length and gradual increased weight bearing in RLE. Manual Therapy Treatment Soft Tissue Mobilization R ankle Body Location tib ant, scar mob Body Location R 1st MTP and dorsal foot Mobilization Type Myofascial Release Intensity/Depth Moderate Body Position Sitting Comments manual and ed self application Joint Mobilizations MTPs Joint 1-5 Direction gentle AP, PA Grade II Body Position seated Comments therapist manual and ed self talocrural Direction A-P Grade III Body Position Standing Reps/Duration 1 min Comments supine and Foot on step with MVM to improve DF during gait Self-Care/Home Management Treatment Education Patient Education Body Mechanics,Pain Management PT-OP-T Assessment and Plan Start: 06/11/23 09:02 Freq: Status: Active Protocol: Document 07/23/23 13:44 SW (Rec: 07/23/23 14:33 [id number]) Physical Therapy Assessment Goals HEP Alf Goal (LTG) Pt independent with HEP LTG Duration 09/03/22 FAAM Impairment Pt with score of 17/84 on FAAM . Short Term Goal (STG) Pt with score of 30/84 on FAAM STG Duration 07/23/23 Syrup Filterer Goal (LTG) Pt with score of 50/84 on FAAM LTG Duration 09/03/22 Stairs Impairment Pt with step-to gait pattern. Short Term Goal (STG) Pt able to ascend/descend stairs with reciprocal gait pattern. STG Duration 07/23/23 Gait Impairment Pt ambulates 25% weight- bearing on R LE with JORY. Short Term Goal (STG) Pt able to ambulate >75% weightbearing on R LE with unilateral crutch STG Duration 07/23/23 Alf Goal (LTG) Pt able to ambulate without AD . LTG Duration 09/03/22 Pain Impairment Pt reporting 9/10 pain at the worst Short Term Goal (STG) Pt to report 6/10 at the worst STG Duration 07/23/23 Syrup Filterer Goal (LTG) Pt to report 2/10 at the worst . LTG Duration 09/03/22 Assessment Summary Assessment Continued to progress gait mechanics this session with 75 % weight bearing and unilateral crutch, cued pt for gradual increase in weight bearing into RLE, equal stance time on BLE, and equal step length during ambualtion. Pt reports pain with gradual increase in weight bearing with boot doffed at home, educated pt on progressive loading, discussed pt protocol per POC. Plan to continue to progress gait mechanics and strengthening toward pt goals per PT plan next session as tolerated. Physical Therapy Plan Frequency and Duration Frequency of Treatment 2x/Week Duration of treatment (weeks) 12 Plan of Care Start Date 06/11/23 Plan of Care End Date 09/03/23 Therapeutic Interventions Therapeutic Interventions Balance Training,Coordination Training,Gait Training,Home Exercise Program,Joint Mobilizations,Manual Therapy, Neuromuscular Re-education, Patient/Caregiver Education, Self-Care/Home Management,Soft Tissue Mobilization,Taping, Therapeutic Activities, Therapeutic Exercises Modalities Cold Pack/Ice Massage,Electric Stimulation,Hot Packs, Ultrasound Next Visit Focus/Plan Next Note Type Treatment Note Next Visit Plan * FWB as of 2nd week Nov, wean boot. Next tx: bike warm up with sneaker, heel toe walking without AD, squats, step ups , gait mechanics. Manual needed, bridges. Progress R LE strength, weight shifting on R LE, gait training,
--- NOTE | 2023-07-30 10:41 | PT-OP ANOTE ---
Pt came 23 min late to appointment, so was unable to be seen . Pt rescheduled for next week.
--- NOTE | 2023-08-20 12:26 | PT.OPPOC ---
Physical, Occupational & Speech Therapy At [facility] Current Diagnoses Displaced fracture of intermediate cuneiform of right foot, sequela (08/20/23) Displaced fracture of second metatarsal bone, right foot, sequela (08/20/23) Dislocation of tarsometatarsal joint of right foot, subsequent encounter (08/20/23) Disruption of external operation (surgical) wound, not elsewhere classified, subsequent encounter (08/20/23) Visit Care Team Role Provider Type Arlen Nair MD Attending Provider Physician Family Provider Primary Care Provider Referring Provider Specialty: Orthopedics Orthopedic Surgery Address: [address] [place] [address], [id number] Email: [email or web address] Plan Of Care PT-OP-T Assessment and Plan Start: 06/11/23 09:02 Freq: Status: Active Protocol: Document 08/20/23 11:18 MB (Rec: 08/20/23 12:25 MB [id number]) Physical Therapy Assessment Goals HEP Correction Goal (LTG) Pt independent with HEP. 08/20/23: Pt is performing current exercises 5x/wk. LTG Duration 11/02/23 FAAM Impairment Pt with score of 17/84 on FAAM . Short Term Goal (STG) Pt with score of 30/84 on FAAM STG Duration 07/23/23 Surveillance Camera Technician Goal (LTG) Pt with score of 50/84 on FAAM 08/20/23: FAAM score is 39/84. LTG Duration 11/02/23 Stairs Impairment Pt with step-to gait pattern. Short Term Goal (STG) Pt able to ascend/descend stairs with reciprocal gait pattern. STG Duration 07/23/23 Gait Impairment Pt ambulates 25% weight- bearing on R LE with JORY. Short Term Goal (STG) Pt able to ambulate >75% weightbearing on R LE with unilateral crutch STG Duration 07/23/23 Surveillance Camera Technician Goal (LTG) Pt able to ambulate without AD . LTG Duration 09/03/23 Pain Impairment Pt reporting 9/10 pain at the worst Short Term Goal (STG) Pt to report 6/10 at the worst STG Duration 07/23/23 Correction Goal (LTG) Pt to report 2/10 at the worst . 08/20/23: Pt reports he has 7-8 /10 pain in the morning and has to use his crutch first thing in the morning LTG Duration 11/02/23 Assessment Summary Assessment Pt has not been able to come to PT for about a month given the holidays. He still gets significant pain in his right foot, especially first thing in the morning. He is receptive to pool exercise and PT and pt discuss exercises. Performed progress note and pt will benefit from ongoing PT to improve pain, function, balance and gait. Barriers include ongoing infection treatment and fusions, muscle changes and atrophy. Physical Therapy Plan Frequency and Duration Frequency of Treatment 1-2x/Week Duration of treatment (weeks) 12 Plan of Care Start Date 08/20/23 Plan of Care End Date 11/02/23 Therapeutic Interventions Therapeutic Interventions Balance Training,Coordination Training,Gait Training,Home Exercise Program,Joint Mobilizations,Manual Therapy, Neuromuscular Re-education, Patient/Caregiver Education, Self-Care/Home Management,Soft Tissue Mobilization,Taping, Therapeutic Activities, Therapeutic Exercises Modalities Cold Pack/Ice Massage,Electric Stimulation,Hot Packs, Ultrasound Next Visit Focus/Plan Next Note Type Treatment Note Next Visit Plan Consider bike warm up with sneaker, heel toe walking without AD, squats, step ups, gait mechanics. Manual needed, bridges. Ongoing balance. Progress R LE strength, weight shifting on R LE, gait training, Plan of Care Dates Plan of Care Start Date 08/20/23 Plan of Care End Date 11/02/23 Electronically Signed by: Loretta Melton PT 08/20/23 [id number] If you are in agreement with this Plan of Care, please return a signed and dated copy. I have reviewed this Plan of Care and certify that the skilled therapy services above are required to meet the patient?s needs. Physician Signature Date Printed Name and Credentials Clinical Instructor Signature Printed Name and Credentials
--- NOTE | 2023-08-20 12:26 | PT.OTN ---
Current Diagnoses Displaced fracture of intermediate cuneiform of right foot, sequela (08/20/23) Displaced fracture of second metatarsal bone, right foot, sequela (08/20/23) Dislocation of tarsometatarsal joint of right foot, subsequent encounter (08/20/23) Disruption of external operation (surgical) wound, not elsewhere classified, subsequent encounter (08/20/23) Physical Therapy Treatment Note PT-OP-A Visit Information Start: 06/11/23 09:02 Freq: Status: Active Protocol: Document 08/20/23 11:18 MB (Rec: 08/20/23 12:25 MB [id number]) Out-Patient Physical Therapy Visit Information Visit Information Visit Type Treatment Note Visit Start Time 11:18 Visit Stop Time 12:00 Total Visit Minutes 42 Visit Number 08/22 Number of MARKETING TRAFFIC COORDINATOR Visits 0 Precautions Precautions Pt with IV infusions for infection, Gradual increase weight-bearing as tolerated 02/22/23: initial surgery R foot. 03/21/23: s/p R lisfranc fusion 05/26/23: 25% WB in boot, with increase WB weekly. Once full WB in boot, start weaning to shoe /c arch support (midfoot fused). Cleared for AROM and strengthening. PT-OP-B Current Condition Start: 06/11/23 09:02 Freq: Status: Active Protocol: Document 06/11/23 12:21 AM (Rec: 06/11/23 17:58 AM [id number]) Current Condition History of Current Condition Onset Date Initial injury 02/22/23 Current Complaints R foot pain History of Current Condition Pt had R lisfranc fusion . Pt was helping someone move an armoire down the stairs. The armoire hit his foot. Pt reports that it shattered his foot. Pt's is on his 4th surgery with recent fusion. Pt then got an infection following the 3rd surgery, therefore had a 4th surgery to clean the area. Pt is now getting infusion antibiotics. Pt reports that he feels that the antibiotic fusions have cause joint stiffness elsewhere. Pt is going to be transitioning to an oral antibiotic to see if joint stiffness decreases. Pt reports that he also has R knee pain from prior surgery. He is now wearing a knee brace for that. Pain at R medial knee joint. Pt reports that he is cleared to increase weight -bearing through R LE, but only able to put 25% of his body weight on R LE while ambulating. Prior Treatments and Tests K-wire fixation of the 5th metatarsal tarsometatarsal joint. Screw and plate fixation of the 1st through 3rd tarsometatarsal joints. tarsometatarsal joints. Prior Functional Status Baseline Function- ADL's Independent Baseline Function- Mobility Independent Current Functional Impairments (Reported) Functional Limitations- ADL's Pt independent with ADLs Functional Limitations- Mobility/Gait Pt ambulating with JORY. Pt has stairs at home and had been Functional Limitations- Work/School Pt is retired PT-OP-C Subjective Start: 06/11/23 09:02 Freq: Status: Active Protocol: Document 08/20/23 11:18 MB (Rec: 08/20/23 12:25 MB [id number]) OP-PT Subjective Patient Comments Patient Comments Pt states that the holidays were stressful. He wasn't his boot. When he got back from OR , he started using his boot again because it doesn't hurt as much. Pt con't to take oral antibiotics. He sees his ID doctor tomorrow. PT-OP-G Mobility & Gait Start: 06/11/23 09:02 Freq: Status: Active Protocol: Document 06/11/23 12:21 AM (Rec: 06/11/23 17:58 AM [id number]) OP Gait Assessment Gait Gait Assistance Required: Independent Assistive Devices Assistive Device Axillary Crutches Orthotic/Prosthetic Devices or Brace: Yes Gait Deviations General Gait Pattern Antalgic,Decreased Stride Length Comments Gait Comments Pt ambulates with R knee flexed and lack of heel strike /push-off. Stair Climbing Evaluation Evaluation Level of Assist On Stairs Standby Assistance Devices Stair Climbing Assistive Devices Axillary Crutches,Right Railing Technique/Endurance Stair Climbing Direction Ascend and Descend Stair Climbing Technique Step to Step Number of Steps Climbed 8 Comments Stair Climbing Comments Pt demonstrated ascending with R LE leading and descending with L LE leading. Pt cued to ascend with L leading and descend with R leading to decrease strain at R knee. Pt able to demonstrate safety with this. PT-OP-J Posture/Palpation/Skin Start: 06/11/23 09:02 Freq: Status: Active Protocol: Document 06/11/23 12:21 AM (Rec: 06/11/23 17:58 AM [id number]) Skin Assessment Edema Assessment Right Foot Edema Type Pitting Subjective Edema Description Tightness Incisional Assessment Incision Appearance/Comments Pt's incision sites are not full healed, though dry. Pt being treated for infection PT-OP-K Range of Motion Start: 06/11/23 09:02 Freq: Status: Active Protocol: Document 07/01/23 09:03 AM (Rec: 07/01/23 13:08 AM [id number]) Knee Goniometric Range of Motion Knee Right Flexion Active (degrees) 135 Extension Active (degrees) 0 Ankle and Foot Goniometric Range of Motion Ankle and Foot Right Active Dorsiflexion with Knee Extended 2 PT-OP-M Strength Start: 06/11/23 09:02 Freq: Status: Active Protocol: Document 06/11/23 12:21 AM (Rec: 06/11/23 17:58 AM [id number]) Ankle/Foot Strength Ankle and Foot Manual Muscle Testing Right Comments NT secondary to pain Left Dorsiflexion (L4) 5 Normal Plantarflexion (S1) 5 Normal Inversion 5 Normal Eversion (S1) 5 Normal PT-OP-Q Treatments Start: 06/11/23 09:02 Freq: Status: Active Protocol: Document 08/20/23 11:18 MB (Rec: 08/20/23 12:25 MB [id number]) Cardio Equipment Recumbent Elliptical (Biodex) Duration (Minutes) 15 Resistance 7 Other Performed during interview/ FAAM questioning Therapeutic Exercises Standing Exercises Pool exercise ideas Comments Forward and backward walking, Romberg EO and EC, water perturbations Romberg and Romberg with EC Comments Increased sway B and requiring reaching for rail Gait Training Gait Activity Gait barefoot Comments Pt with partial step-to gait, decreased step-length and foot clearance, decreased right ankle movement, decreased muscle mass right calf, decreased toe movement and push off PT-OP-T Assessment and Plan Start: 06/11/23 09:02 Freq: Status: Active Protocol: Document 08/20/23 11:18 MB (Rec: 08/20/23 12:25 MB [id number]) Physical Therapy Assessment Goals HEP Fdc Goal (LTG) Pt independent with HEP. 08/20/23: Pt is performing current exercises 5x/wk. LTG Duration 11/02/23 FAAM Impairment Pt with score of 17/84 on FAAM . Short Term Goal (STG) Pt with score of 30/84 on FAAM STG Duration 07/23/23 Fdc Goal (LTG) Pt with score of 50/84 on FAAM 08/20/23: FAAM score is 39/84. LTG Duration 11/02/23 Stairs Impairment Pt with step-to gait pattern. Short Term Goal (STG) Pt able to ascend/descend stairs with reciprocal gait pattern. STG Duration 07/23/23 Gait Impairment Pt ambulates 25% weight- bearing on R LE with JORY. Short Term Goal (STG) Pt able to ambulate >75% weightbearing on R LE with unilateral crutch STG Duration 07/23/23 Sheriff Goal (LTG) Pt able to ambulate without AD . LTG Duration 09/03/23 Pain Impairment Pt reporting 9/10 pain at the worst Short Term Goal (STG) Pt to report 6/10 at the worst STG Duration 07/23/23 Sheriff Goal (LTG) Pt to report 2/10 at the worst . 08/20/23: Pt reports he has 7-8 /10 pain in the morning and has to use his crutch first thing in the morning LTG Duration 11/02/23 Assessment Summary Assessment Pt has not been able to come to PT for about a month given the holidays. He still gets significant pain in his right foot, especially first thing in the morning. He is receptive to pool exercise and PT and pt discuss exercises. Performed progress note and pt will benefit from ongoing PT to improve pain, function, balance and gait. Barriers include ongoing infection treatment and fusions, muscle changes and atrophy. Physical Therapy Plan Frequency and Duration Frequency of Treatment 1-2x/Week Duration of treatment (weeks) 12 Plan of Care Start Date 08/20/23 Plan of Care End Date 11/02/23 Therapeutic Interventions Therapeutic Interventions Balance Training,Coordination Training,Gait Training,Home Exercise Program,Joint Mobilizations,Manual Therapy, Neuromuscular Re-education, Patient/Caregiver Education, Self-Care/Home Management,Soft Tissue Mobilization,Taping, Therapeutic Activities, Therapeutic Exercises Modalities Cold Pack/Ice Massage,Electric Stimulation,Hot Packs, Ultrasound Next Visit Focus/Plan Next Note Type Treatment Note Next Visit Plan Consider bike warm up with sneaker, heel toe walking without AD, squats, step ups, gait mechanics. Manual needed, bridges. Ongoing balance. Progress R LE strength, weight shifting on R LE, gait training,
--- NOTE | 2023-08-25 09:47 | PT.OTN ---
Current Diagnoses Displaced fracture of intermediate cuneiform of right foot, sequela (08/25/23) Displaced fracture of second metatarsal bone, right foot, sequela (08/25/23) Dislocation of tarsometatarsal joint of right foot, subsequent encounter (08/25/23) Disruption of external operation (surgical) wound, not elsewhere classified, subsequent encounter (08/25/23) Physical Therapy Treatment Note PT-OP-A Visit Information Start: 06/11/23 09:02 Freq: Status: Active Protocol: Document 08/25/23 09:02 MB (Rec: 08/25/23 09:46 MB [id number]) Out-Patient Physical Therapy Visit Information Visit Information Visit Type Treatment Note Visit Start Time 09:02 Visit Stop Time 09:45 Total Visit Minutes 43 Visit Number 09/22 Number of COMMERCIAL HELICOPTER PILOT Visits 0 Precautions Precautions Pt with IV infusions for infection, Gradual increase weight-bearing as tolerated 02/22/23: initial surgery R foot. 03/21/23: s/p R lisfranc fusion 05/26/23: 25% WB in boot, with increase WB weekly. Once full WB in boot, start weaning to shoe /c arch support (midfoot fused). Cleared for AROM and strengthening. PT-OP-B Current Condition Start: 06/11/23 09:02 Freq: Status: Active Protocol: Document 06/11/23 12:21 AM (Rec: 06/11/23 17:58 AM [id number]) Current Condition History of Current Condition Onset Date Initial injury 02/22/23 Current Complaints R foot pain History of Current Condition Pt had R lisfranc fusion . Pt was helping someone move an armoire down the stairs. The armoire hit his foot. Pt reports that it shattered his foot. Pt's is on his 4th surgery with recent fusion. Pt then got an infection following the 3rd surgery, therefore had a 4th surgery to clean the area. Pt is now getting infusion antibiotics. Pt reports that he feels that the antibiotic fusions have cause joint stiffness elsewhere. Pt is going to be transitioning to an oral antibiotic to see if joint stiffness decreases. Pt reports that he also has R knee pain from prior surgery. He is now wearing a knee brace for that. Pain at R medial knee joint. Pt reports that he is cleared to increase weight -bearing through R LE, but only able to put 25% of his body weight on R LE while ambulating. Prior Treatments and Tests K-wire fixation of the 5th metatarsal tarsometatarsal joint. Screw and plate fixation of the 1st through 3rd tarsometatarsal joints. tarsometatarsal joints. Prior Functional Status Baseline Function- ADL's Independent Baseline Function- Mobility Independent Current Functional Impairments (Reported) Functional Limitations- ADL's Pt independent with ADLs Functional Limitations- Mobility/Gait Pt ambulating with JORY. Pt has stairs at home and had been Functional Limitations- Work/School Pt is retired PT-OP-C Subjective Start: 06/11/23 09:02 Freq: Status: Active Protocol: Document 08/25/23 09:02 MB (Rec: 08/25/23 09:46 MB [id number]) OP-PT Subjective Patient Comments Patient Comments Pt looked into the pool and he and his will join probably today. PT-OP-G Mobility & Gait Start: 06/11/23 09:02 Freq: Status: Active Protocol: Document 06/11/23 12:21 AM (Rec: 06/11/23 17:58 AM [id number]) OP Gait Assessment Gait Gait Assistance Required: Independent Assistive Devices Assistive Device Axillary Crutches Orthotic/Prosthetic Devices or Brace: Yes Gait Deviations General Gait Pattern Antalgic,Decreased Stride Length Comments Gait Comments Pt ambulates with R knee flexed and lack of heel strike /push-off. Stair Climbing Evaluation Evaluation Level of Assist On Stairs Standby Assistance Devices Stair Climbing Assistive Devices Axillary Crutches,Right Railing Technique/Endurance Stair Climbing Direction Ascend and Descend Stair Climbing Technique Step to Step Number of Steps Climbed 8 Comments Stair Climbing Comments Pt demonstrated ascending with R LE leading and descending with L LE leading. Pt cued to ascend with L leading and descend with R leading to decrease strain at R knee. Pt able to demonstrate safety with this. PT-OP-J Posture/Palpation/Skin Start: 06/11/23 09:02 Freq: Status: Active Protocol: Document 06/11/23 12:21 AM (Rec: 06/11/23 17:58 AM [id number]) Skin Assessment Edema Assessment Right Foot Edema Type Pitting Subjective Edema Description Tightness Incisional Assessment Incision Appearance/Comments Pt's incision sites are not full healed, though dry. Pt being treated for infection PT-OP-K Range of Motion Start: 06/11/23 09:02 Freq: Status: Active Protocol: Document 07/01/23 09:03 AM (Rec: 07/01/23 13:08 AM [id number]) Knee Goniometric Range of Motion Knee Right Flexion Active (degrees) 135 Extension Active (degrees) 0 Ankle and Foot Goniometric Range of Motion Ankle and Foot Right Active Dorsiflexion with Knee Extended 2 PT-OP-M Strength Start: 06/11/23 09:02 Freq: Status: Active Protocol: Document 06/11/23 12:21 AM (Rec: 06/11/23 17:58 AM [id number]) Ankle/Foot Strength Ankle and Foot Manual Muscle Testing Right Comments NT secondary to pain Left Dorsiflexion (L4) 5 Normal Plantarflexion (S1) 5 Normal Inversion 5 Normal Eversion (S1) 5 Normal PT-OP-Q Treatments Start: 06/11/23 09:02 Freq: Status: Active Protocol: Document 08/25/23 09:02 MB (Rec: 08/25/23 09:46 MB [id number]) Cardio Equipment Bicycle (Upright) Duration (Minutes) 11 Resistance Level 8 Therapeutic Exercises Supine Exercises PF MWM with racquet ball Comments Racquet ball under PF TrP and APs Sitting Exercises Plantar fascia MWM Comments Sitting with ball under foot Manual Therapy Treatment Soft Tissue Mobilization R foot and ankle manual work Comments Gentle toe mobs, CFM, STM and MWM right PFs with active right ankle motion, plantar fasica STM PT-OP-T Assessment and Plan Start: 06/11/23 09:02 Freq: Status: Active Protocol: Document 08/25/23 09:02 MB (Rec: 08/25/23 09:46 MB [id number]) Physical Therapy Assessment Goals HEP Mainframe Analyst Goal (LTG) Pt independent with HEP. 08/20/23: Pt is performing current exercises 5x/wk. LTG Duration 11/02/23 FAAM Impairment Pt with score of 17/84 on FAAM . Short Term Goal (STG) Pt with score of 30/84 on FAAM STG Duration 07/23/23 Mainframe Analyst Goal (LTG) Pt with score of 50/84 on FAAM 08/20/23: FAAM score is 39/84. LTG Duration 11/02/23 Pain Impairment Pt reporting 9/10 pain at the worst Short Term Goal (STG) Pt to report 6/10 at the worst STG Duration 07/23/23 Detention Goal (LTG) Pt to report 2/10 at the worst . 08/20/23: Pt reports he has 7-8 /10 pain in the morning and has to use his crutch first thing in the morning LTG Duration 11/02/23 Assessment Summary Assessment Pt to start at the pool this week. Ed pt in schedule for exercise as far as stationary bike, pool, PT exercises and pt is in agreement. Foot motion is limited by hardware. Myofascial tension in plantarflexors and plantar fascia are better after manual work. Physical Therapy Plan Frequency and Duration Frequency of Treatment 1-2x/Week Duration of treatment (weeks) 12 Plan of Care Start Date 08/20/23 Plan of Care End Date 11/02/23 Therapeutic Interventions Therapeutic Interventions Balance Training,Coordination Training,Gait Training,Home Exercise Program,Joint Mobilizations,Manual Therapy, Neuromuscular Re-education, Patient/Caregiver Education, Self-Care/Home Management,Soft Tissue Mobilization,Taping, Therapeutic Activities, Therapeutic Exercises Modalities Cold Pack/Ice Massage,Electric Stimulation,Hot Packs, Ultrasound Next Visit Focus/Plan Next Note Type Treatment Note Next Visit Plan Progress heel toe walking without AD, squats, step ups, gait mechanics. Manual needed, bridges. Ongoing balance. Progress R LE strength, weight shifting on R LE, gait training
--- NOTE | 2023-08-27 11:13 | PT.OTN ---
Current Diagnoses Displaced fracture of intermediate cuneiform of right foot, sequela (08/27/23) Displaced fracture of second metatarsal bone, right foot, sequela (08/27/23) Dislocation of tarsometatarsal joint of right foot, subsequent encounter (08/27/23) Disruption of external operation (surgical) wound, not elsewhere classified, subsequent encounter (08/27/23) Physical Therapy Treatment Note PT-OP-A Visit Information Start: 06/11/23 09:02 Freq: Status: Active Protocol: Document 08/27/23 10:29 MB (Rec: 08/27/23 11:08 MB [id number]) Out-Patient Physical Therapy Visit Information Visit Information Visit Type Treatment Note Visit Start Time 10:29 Visit Stop Time 11:14 Total Visit Minutes 45 Visit Number 3/ Number of SALES APPLICATIONS ENGINEER Visits 0 Precautions Precautions Pt with IV infusions for infection, Gradual increase weight-bearing as tolerated 02/22/23: initial surgery R foot. 03/21/23: s/p R lisfranc fusion 05/26/23: 25% WB in boot, with increase WB weekly. Once full WB in boot, start weaning to shoe /c arch support (midfoot fused). Cleared for AROM and strengthening. PT-OP-B Current Condition Start: 06/11/23 09:02 Freq: Status: Active Protocol: Document 06/11/23 12:21 AM (Rec: 06/11/23 17:58 AM [id number]) Current Condition History of Current Condition Onset Date Initial injury 02/22/23 Current Complaints R foot pain History of Current Condition Pt had R lisfranc fusion . Pt was helping someone move an armoire down the stairs. The armoire hit his foot. Pt reports that it shattered his foot. Pt's is on his 4th surgery with recent fusion. Pt then got an infection following the 3rd surgery, therefore had a 4th surgery to clean the area. Pt is now getting infusion antibiotics. Pt reports that he feels that the antibiotic fusions have cause joint stiffness elsewhere. Pt is going to be transitioning to an oral antibiotic to see if joint stiffness decreases. Pt reports that he also has R knee pain from prior surgery. He is now wearing a knee brace for that. Pain at R medial knee joint. Pt reports that he is cleared to increase weight -bearing through R LE, but only able to put 25% of his body weight on R LE while ambulating. Prior Treatments and Tests K-wire fixation of the 5th metatarsal tarsometatarsal joint. Screw and plate fixation of the 1st through 3rd tarsometatarsal joints. tarsometatarsal joints. Prior Functional Status Baseline Function- ADL's Independent Baseline Function- Mobility Independent Current Functional Impairments (Reported) Functional Limitations- ADL's Pt independent with ADLs Functional Limitations- Mobility/Gait Pt ambulating with JORY. Pt has stairs at home and had been Functional Limitations- Work/School Pt is retired PT-OP-C Subjective Start: 06/11/23 09:02 Freq: Status: Active Protocol: Document 08/27/23 10:29 MB (Rec: 08/27/23 11:08 MB [id number]) OP-PT Subjective Patient Comments Patient Comments He didn't make it to the pool d/t the weather. Pt might be moving to [place]. PT-OP-G Mobility & Gait Start: 06/11/23 09:02 Freq: Status: Active Protocol: Document 06/11/23 12:21 AM (Rec: 06/11/23 17:58 AM [id number]) OP Gait Assessment Gait Gait Assistance Required: Independent Assistive Devices Assistive Device Axillary Crutches Orthotic/Prosthetic Devices or Brace: Yes Gait Deviations General Gait Pattern Antalgic,Decreased Stride Length Comments Gait Comments Pt ambulates with R knee flexed and lack of heel strike /push-off. Stair Climbing Evaluation Evaluation Level of Assist On Stairs Standby Assistance Devices Stair Climbing Assistive Devices Axillary Crutches,Right Railing Technique/Endurance Stair Climbing Direction Ascend and Descend Stair Climbing Technique Step to Step Number of Steps Climbed 8 Comments Stair Climbing Comments Pt demonstrated ascending with R LE leading and descending with L LE leading. Pt cued to ascend with L leading and descend with R leading to decrease strain at R knee. Pt able to demonstrate safety with this. PT-OP-J Posture/Palpation/Skin Start: 06/11/23 09:02 Freq: Status: Active Protocol: Document 06/11/23 12:21 AM (Rec: 06/11/23 17:58 AM [id number]) Skin Assessment Edema Assessment Right Foot Edema Type Pitting Subjective Edema Description Tightness Incisional Assessment Incision Appearance/Comments Pt's incision sites are not full healed, though dry. Pt being treated for infection PT-OP-K Range of Motion Start: 06/11/23 09:02 Freq: Status: Active Protocol: Document 07/01/23 09:03 AM (Rec: 07/01/23 13:08 AM [id number]) Knee Goniometric Range of Motion Knee Right Flexion Active (degrees) 135 Extension Active (degrees) 0 Ankle and Foot Goniometric Range of Motion Ankle and Foot Right Active Dorsiflexion with Knee Extended 2 PT-OP-M Strength Start: 06/11/23 09:02 Freq: Status: Active Protocol: Document 06/11/23 12:21 AM (Rec: 06/11/23 17:58 AM [id number]) Ankle/Foot Strength Ankle and Foot Manual Muscle Testing Right Comments NT secondary to pain Left Dorsiflexion (L4) 5 Normal Plantarflexion (S1) 5 Normal Inversion 5 Normal Eversion (S1) 5 Normal PT-OP-Q Treatments Start: 06/11/23 09:02 Freq: Status: Active Protocol: Document 08/27/23 10:29 MB (Rec: 08/27/23 11:08 MB [id number]) Cardio Equipment Recumbent Elliptical (Biodex) Duration (Minutes) 3 Resistance 7 Bicycle (Upright) Duration (Minutes) 5 Resistance Level 8 Therapeutic Exercises Sitting Exercises STS Sitting Exercise Name Use of UEs on arm rests Comments Up to 25 reps, to tolerance, stop if right foot pain LAQ Comments 5 lb weight, alternating 30, 2 sets Standing Exercises Deep squat Comments 20 reps good form SLS Standing Exercise Name Ed to stand near counter or chair Comments Ed to stand up to 30 sec each foot Tandem standing Standing Exercise Name Ed to stand near counter or chair Comments Up to 60 sec each foot Hamstring curls Comments Hold chair, alternating to 30, 2 sets Hip abduction Comments Hold chair, alternating to 30, 2 sets Other Exercises Tandem walking forward and backward Comments 10 steps forward and then 10 backwards, up to 6 times PT-OP-T Assessment and Plan Start: 06/11/23 09:02 Freq: Status: Active Protocol: Document 08/27/23 10:29 MB (Rec: 08/27/23 11:08 MB [id number]) Physical Therapy Assessment Goals HEP Cast Shell Grinder Goal (LTG) Pt independent with HEP. 08/20/23: Pt is performing current exercises 5x/wk. LTG Duration 11/02/23 FAAM Impairment Pt with score of 17/84 on FAAM . Short Term Goal (STG) Pt with score of 30/84 on FAAM STG Duration 07/23/23 Cast Shell Grinder Goal (LTG) Pt with score of 50/84 on FAAM 08/20/23: FAAM score is 39/84. LTG Duration 11/02/23 Pain Impairment Pt reporting 9/10 pain at the worst Short Term Goal (STG) Pt to report 6/10 at the worst STG Duration 07/23/23 Mcfp Goal (LTG) Pt to report 2/10 at the worst . 08/20/23: Pt reports he has 7-8 /10 pain in the morning and has to use his crutch first thing in the morning LTG Duration 11/02/23 Assessment Summary Assessment [facility] for LE strengthening and balance started today. Pt will not do heel and toe walking. Pt to start 3x/wk at home and given handouts. He will start with 5 lb weights at home. Physical Therapy Plan Frequency and Duration Frequency of Treatment 1-2x/Week Duration of treatment (weeks) 12 Plan of Care Start Date 08/20/23 Plan of Care End Date 11/02/23 Therapeutic Interventions Therapeutic Interventions Balance Training,Coordination Training,Gait Training,Home Exercise Program,Joint Mobilizations,Manual Therapy, Neuromuscular Re-education, Patient/Caregiver Education, Self-Care/Home Management,Soft Tissue Mobilization,Taping, Therapeutic Activities, Therapeutic Exercises Modalities Cold Pack/Ice Massage,Electric Stimulation,Hot Packs, Ultrasound Next Visit Focus/Plan Next Note Type Treatment Note Next Visit Plan Consider bridging progression, review HEP
--- NOTE | 2023-09-23 13:11 | PT-OP ANOTE ---
PT calls pt and he states that he called in about missing the appointment today d/t having to take his to the hospital. He confirms next three appointments and states they are moving at the end of the month.
--- NOTE | 2023-09-25 11:20 | PT.OTN ---
Current Diagnoses Displaced fracture of intermediate cuneiform of right foot, sequela (09/25/23) Displaced fracture of second metatarsal bone, right foot, sequela (09/25/23) Dislocation of tarsometatarsal joint of right foot, subsequent encounter (09/25/23) Disruption of external operation (surgical) wound, not elsewhere classified, subsequent encounter (09/25/23) Physical Therapy Treatment Note PT-OP-A Visit Information Start: 06/11/23 09:02 Freq: Status: Active Protocol: Document 09/25/23 10:32 SP (Rec: 09/25/23 11:59 SP [id number]) Out-Patient Physical Therapy Visit Information Visit Information Visit Type Treatment Note Visit Start Time 10:32 Visit Stop Time 11:20 Visit Number 12/20 Number of SHAKER OUT Visits 1 Evaluation Information Evaluation Date 06/11/23 Precautions Precautions Pt with IV infusions for infection, Gradual increase weight-bearing as tolerated 02/22/23: initial surgery R foot. 03/21/23: s/p R lisfranc fusion 05/26/23: 25% WB in boot, with increase WB weekly. Once full WB in boot, start weaning to shoe /c arch support (midfoot fused). Cleared for AROM and strengthening. PT-OP-B Current Condition Start: 06/11/23 09:02 Freq: Status: Active Protocol: Document 06/11/23 12:21 AM (Rec: 06/11/23 17:58 AM [id number]) Current Condition History of Current Condition Onset Date Initial injury 02/22/23 Current Complaints R foot pain History of Current Condition Pt had R lisfranc fusion . Pt was helping someone move an armoire down the stairs. The armoire hit his foot. Pt reports that it shattered his foot. Pt's is on his 4th surgery with recent fusion. Pt then got an infection following the 3rd surgery, therefore had a 4th surgery to clean the area. Pt is now getting infusion antibiotics. Pt reports that he feels that the antibiotic fusions have cause joint stiffness elsewhere. Pt is going to be transitioning to an oral antibiotic to see if joint stiffness decreases. Pt reports that he also has R knee pain from prior surgery. He is now wearing a knee brace for that. Pain at R medial knee joint. Pt reports that he is cleared to increase weight -bearing through R LE, but only able to put 25% of his body weight on R LE while ambulating. Prior Treatments and Tests K-wire fixation of the 5th metatarsal tarsometatarsal joint. Screw and plate fixation of the 1st through 3rd tarsometatarsal joints. tarsometatarsal joints. Prior Functional Status Baseline Function- ADL's Independent Baseline Function- Mobility Independent Current Functional Impairments (Reported) Functional Limitations- ADL's Pt independent with ADLs Functional Limitations- Mobility/Gait Pt ambulating with JORY. Pt has stairs at home and had been Functional Limitations- Work/School Pt is retired PT-OP-C Subjective Start: 06/11/23 09:02 Freq: Status: Active Protocol: Document 09/25/23 10:32 SP (Rec: 09/25/23 11:59 SP [id number]) OP-PT Subjective Patient Comments Patient Comments Pt reports I have good and bad days, today is good day, R ankle/dorsal sore. Doing walking and doing exercises in pool and use bike [facility]. No report of back pain today. PT-OP-G Mobility & Gait Start: 06/11/23 09:02 Freq: Status: Active Protocol: Document 06/11/23 12:21 AM (Rec: 06/11/23 17:58 AM [id number]) OP Gait Assessment Gait Gait Assistance Required: Independent Assistive Devices Assistive Device Axillary Crutches Orthotic/Prosthetic Devices or Brace: Yes Gait Deviations General Gait Pattern Antalgic,Decreased Stride Length Comments Gait Comments Pt ambulates with R knee flexed and lack of heel strike /push-off. Stair Climbing Evaluation Evaluation Level of Assist On Stairs Standby Assistance Devices Stair Climbing Assistive Devices Axillary Crutches,Right Railing Technique/Endurance Stair Climbing Direction Ascend and Descend Stair Climbing Technique Step to Step Number of Steps Climbed 8 Comments Stair Climbing Comments Pt demonstrated ascending with R LE leading and descending with L LE leading. Pt cued to ascend with L leading and descend with R leading to decrease strain at R knee. Pt able to demonstrate safety with this. PT-OP-J Posture/Palpation/Skin Start: 06/11/23 09:02 Freq: Status: Active Protocol: Document 06/11/23 12:21 AM (Rec: 06/11/23 17:58 AM [id number]) Skin Assessment Edema Assessment Right Foot Edema Type Pitting Subjective Edema Description Tightness Incisional Assessment Incision Appearance/Comments Pt's incision sites are not full healed, though dry. Pt being treated for infection PT-OP-K Range of Motion Start: 06/11/23 09:02 Freq: Status: Active Protocol: Document 07/01/23 09:03 AM (Rec: 07/01/23 13:08 AM [id number]) Knee Goniometric Range of Motion Knee Right Flexion Active (degrees) 135 Extension Active (degrees) 0 Ankle and Foot Goniometric Range of Motion Ankle and Foot Right Active Dorsiflexion with Knee Extended 2 PT-OP-M Strength Start: 06/11/23 09:02 Freq: Status: Active Protocol: Document 06/11/23 12:21 AM (Rec: 06/11/23 17:58 AM [id number]) Ankle/Foot Strength Ankle and Foot Manual Muscle Testing Right Comments NT secondary to pain Left Dorsiflexion (L4) 5 Normal Plantarflexion (S1) 5 Normal Inversion 5 Normal Eversion (S1) 5 Normal PT-OP-Q Treatments Start: 06/11/23 09:02 Freq: Status: Active Protocol: Document 09/25/23 10:32 SP (Rec: 09/25/23 11:59 SP [id number]) Cardio Equipment Bicycle (Upright) Duration (Minutes) 6 Resistance Level 8>8 Seat Position 7 Other cues for ankle mobility PF& DF awareness, & carryover at gym Therapeutic Exercises Sitting Exercises arch lift Sitting Exercise Name reviewed a past exercise to support balance stance over RLE Side right Reps/Minutes 5 reps warm up, 5 sec hold x2 sets Comments sit and stand, improved less toe flexion curl compen PF/DF Sitting Exercise Name HEP reviewed Side right Resistance TB #3 [place] green Reps/Minutes x20 Comments good feedback, tiring/no pain ankle IV/EV Sitting Exercise Name windshield wipers- HEP reviewed Side right Resistance TB #3 Reps/Minutes x10 Comments cued slow ROM, heel contact BAPS Sitting Exercise Name PF/DF/IV/EV/CW/CCW-HEP reviewed Side right Resistance over racquetball (simulation for home) Reps/Minutes 20 reps each direction Comments Mod cues SLOW each direction- muscle shake weak PF>IV, painfree Standing Exercises SLS Standing Exercise Name SLS star taps: added to HEP Side bilateral Resistance 12, 9, 6 o'clock (RLE stance leg) Equipment Used light contact counter PRN stability Reps/Minutes 3 reps x3 sets- painfree R ankle Comments cued taller posture, light opp LE taps- painfree R ankle/ good glut tiring Manual Therapy Treatment Soft Tissue Mobilization R ankle Body Location tib ant, calf, plantar fascia Mobilization Type Myofascial Release Intensity/Depth Moderate scar mob Body Location R 1st MTP and dorsal foot Mobilization Type Myofascial Release Intensity/Depth Moderate Body Position long sitting Comments manual and ed self application more distal DIP Joint Mobilizations MTPs Joint 1-5 Direction gentle AP, PA Grade II Body Position Supine Comments therapist manual and discussed RLE over L knee ed self gentle talocrural Direction A-P Grade II Body Position Supine Reps/Duration 1 min Comments supine Neuro Re-Education Treatment Coordination Activities wt shift on uneven surface Details normal stance (shoes doffed) Equipment black foam, front mirror Comments -wt shift forefoot/heel- ed just feel intrinic foot, try equal JENNIFER -trial heel lift- more WB over LLE than R- irritated R dorsal foot- stopped/HOLD Gait and posture after alignment and manual work Details stride stance LLE fwd, RLE bwd Comments cued taller posture: rhomboid/ core fac over trunk and wt shift into forward LLE, R heel lift/eccentric lower, improved patterning leaving post manual, education and review arch lift TB HEP. PT-OP-R Modalities Start: 06/11/23 09:02 Freq: Status: Active Protocol: Document 09/25/23 10:32 SP (Rec: 09/25/23 11:59 SP [id number]) Hot Pack/Cold Pack Treatment CP Location R forefoot- 5 min end tx Patient Position Sitting Patient Tolerance Good Comments feel numbing, less discomfort pain PT-OP-T Assessment and Plan Start: 06/11/23 09:02 Freq: Status: Active Protocol: Document 09/25/23 10:32 SP (Rec: 09/25/23 11:59 SP [id number]) Physical Therapy Assessment Goals HEP Intermediate Goal (LTG) Pt independent with HEP. 08/20/23: Pt is performing current exercises 5x/wk. LTG Duration 11/02/23 FAAM Impairment Pt with score of 17/84 on FAAM . Short Term Goal (STG) Pt with score of 30/84 on FAAM STG Duration 07/23/23 Accounting Manager Assistant Controller Goal (LTG) Pt with score of 50/84 on FAAM 08/20/23: FAAM score is 39/84. LTG Duration 11/02/23 Pain Impairment Pt reporting 9/10 pain at the worst Short Term Goal (STG) Pt to report 6/10 at the worst STG Duration 07/23/23 Intermediate Goal (LTG) Pt to report 2/10 at the worst . 08/20/23: Pt reports he has 7-8 /10 pain in the morning and has to use his crutch first thing in the morning LTG Duration 11/02/23 Assessment Summary Assessment Pt reported no back pain this tx, improved HEP demonstration and use racquetball ankle AROM with cues for SLOWER pacing ROM improved form. Time spent on foot intrinsic engagement for stability and support for standing gait mechanics, seated>stand with report tiring weakness, painfree during wt shift and trialed with no pain SLS start taps added to HEP this tx. Pt reported sore end tx, good feedback review and use of CP to forefoot. Ed with verbal understanding and demonstration leaving heel toe and heel lift toe off mechanics on RLE. Physical Therapy Plan Frequency and Duration Frequency of Treatment 1-2x/wk Duration of treatment (weeks) 12 Plan of Care Start Date 08/20/23 Plan of Care End Date 11/02/23 Therapeutic Interventions Therapeutic Interventions Balance Training,Coordination Training,Gait Training,Home Exercise Program,Joint Mobilizations,Manual Therapy, Neuromuscular Re-education, Patient/Caregiver Education, Self-Care/Home Management,Soft Tissue Mobilization,Taping, Therapeutic Activities, Therapeutic Exercises Modalities Cold Pack/Ice Massage,Electric Stimulation,Hot Packs, Ultrasound Next Visit Focus/Plan Next Note Type Treatment Note Next Visit Plan Ask response to foot intrinic review and carryover gait mechanics walking, review star taps. POC: Consider bridging progression when back feels better and add hip strengthening in this position , review HEP
--- NOTE | 2023-09-30 10:30 | PT.OTN ---
Current Diagnoses Displaced fracture of intermediate cuneiform of right foot, sequela (09/30/23) Displaced fracture of second metatarsal bone, right foot, sequela (09/30/23) Dislocation of tarsometatarsal joint of right foot, subsequent encounter (09/30/23) Disruption of external operation (surgical) wound, not elsewhere classified, subsequent encounter (09/30/23) Physical Therapy Treatment Note PT-OP-A Visit Information Start: 06/11/23 09:02 Freq: Status: Active Protocol: Document 09/30/23 09:50 MB (Rec: 09/30/23 10:29 MB [id number]) Out-Patient Physical Therapy Visit Information Visit Information Visit Type Treatment Note Visit Start Time 09:50 Visit Stop Time 10:30 Visit Number 6 Number of OPTICAL SCIENTIST Visits 0 Precautions Precautions Pt with IV infusions for infection, Gradual increase weight-bearing as tolerated 02/22/23: initial surgery R foot. 03/21/23: s/p R lisfranc fusion 05/26/23: 25% WB in boot, with increase WB weekly. Once full WB in boot, start weaning to shoe /c arch support (midfoot fused). Cleared for AROM and strengthening. PT-OP-B Current Condition Start: 06/11/23 09:02 Freq: Status: Active Protocol: Document 06/11/23 12:21 AM (Rec: 06/11/23 17:58 AM [id number]) Current Condition History of Current Condition Onset Date Initial injury 02/22/23 Current Complaints R foot pain History of Current Condition Pt had R lisfranc fusion . Pt was helping someone move an armoire down the stairs. The armoire hit his foot. Pt reports that it shattered his foot. Pt's is on his 4th surgery with recent fusion. Pt then got an infection following the 3rd surgery, therefore had a 4th surgery to clean the area. Pt is now getting infusion antibiotics. Pt reports that he feels that the antibiotic fusions have cause joint stiffness elsewhere. Pt is going to be transitioning to an oral antibiotic to see if joint stiffness decreases. Pt reports that he also has R knee pain from prior surgery. He is now wearing a knee brace for that. Pain at R medial knee joint. Pt reports that he is cleared to increase weight -bearing through R LE, but only able to put 25% of his body weight on R LE while ambulating. Prior Treatments and Tests K-wire fixation of the 5th metatarsal tarsometatarsal joint. Screw and plate fixation of the 1st through 3rd tarsometatarsal joints. tarsometatarsal joints. Prior Functional Status Baseline Function- ADL's Independent Baseline Function- Mobility Independent Current Functional Impairments (Reported) Functional Limitations- ADL's Pt independent with ADLs Functional Limitations- Mobility/Gait Pt ambulating with JORY. Pt has stairs at home and had been Functional Limitations- Work/School Pt is retired PT-OP-C Subjective Start: 06/11/23 09:02 Freq: Status: Active Protocol: Document 09/30/23 09:50 MB (Rec: 09/30/23 10:29 MB [id number]) OP-PT Subjective Patient Comments Patient Comments Pt is moving to [place]. He moves and he has canceled all appointments after that time. He has been doing too much and packing up the house. He has not been in the pool. PT-OP-G Mobility & Gait Start: 06/11/23 09:02 Freq: Status: Active Protocol: Document 06/11/23 12:21 AM (Rec: 06/11/23 17:58 AM [id number]) OP Gait Assessment Gait Gait Assistance Required: Independent Assistive Devices Assistive Device Axillary Crutches Orthotic/Prosthetic Devices or Brace: Yes Gait Deviations General Gait Pattern Antalgic,Decreased Stride Length Comments Gait Comments Pt ambulates with R knee flexed and lack of heel strike /push-off. Stair Climbing Evaluation Evaluation Level of Assist On Stairs Standby Assistance Devices Stair Climbing Assistive Devices Axillary Crutches,Right Railing Technique/Endurance Stair Climbing Direction Ascend and Descend Stair Climbing Technique Step to Step Number of Steps Climbed 8 Comments Stair Climbing Comments Pt demonstrated ascending with R LE leading and descending with L LE leading. Pt cued to ascend with L leading and descend with R leading to decrease strain at R knee. Pt able to demonstrate safety with this. PT-OP-J Posture/Palpation/Skin Start: 06/11/23 09:02 Freq: Status: Active Protocol: Document 06/11/23 12:21 AM (Rec: 06/11/23 17:58 AM [id number]) Skin Assessment Edema Assessment Right Foot Edema Type Pitting Subjective Edema Description Tightness Incisional Assessment Incision Appearance/Comments Pt's incision sites are not full healed, though dry. Pt being treated for infection PT-OP-K Range of Motion Start: 06/11/23 09:02 Freq: Status: Active Protocol: Document 07/01/23 09:03 AM (Rec: 07/01/23 13:08 AM [id number]) Knee Goniometric Range of Motion Knee Right Flexion Active (degrees) 135 Extension Active (degrees) 0 Ankle and Foot Goniometric Range of Motion Ankle and Foot Right Active Dorsiflexion with Knee Extended 2 PT-OP-M Strength Start: 06/11/23 09:02 Freq: Status: Active Protocol: Document 06/11/23 12:21 AM (Rec: 06/11/23 17:58 AM [id number]) Ankle/Foot Strength Ankle and Foot Manual Muscle Testing Right Comments NT secondary to pain Left Dorsiflexion (L4) 5 Normal Plantarflexion (S1) 5 Normal Inversion 5 Normal Eversion (S1) 5 Normal PT-OP-Q Treatments Start: 06/11/23 09:02 Freq: Status: Active Protocol: Document 09/30/23 09:50 MB (Rec: 09/30/23 10:29 MB [id number]) Cardio Equipment Bicycle (Upright) Duration (Minutes) 8 Resistance Level 9 Manual Therapy Treatment Other Other Manual Treatments Gentle mobs moveable phalanges right foot, CFM plantar fascia, MWM with active DF and PF and TrP pressure right anterior tib, STM and positional release right gastroc Neuro Re-Education Treatment Movement Re-Education Movement Re-education Activities With back against wall, tandem with focus on WB through right foot, pt performs some head turns and eyes closed, re -ed in [place] balance activities: tandem standing, modified SLS with toe touch opposite foot and UE support PT-OP-R Modalities Start: 06/11/23 09:02 Freq: Status: Active Protocol: Document 09/25/23 10:32 SP (Rec: 09/25/23 11:59 SP [id number]) Hot Pack/Cold Pack Treatment CP Location R forefoot- 5 min end tx Patient Position Sitting Patient Tolerance Good Comments feel numbing, less discomfort pain PT-OP-T Assessment and Plan Start: 06/11/23 09:02 Freq: Status: Active Protocol: Document 09/30/23 09:50 MB (Rec: 02/20/24 10:29 MB [id number]) Physical Therapy Assessment Goals HEP Nursing Home Goal (LTG) Pt independent with HEP. 08/20/23: Pt is performing current exercises 5x/wk. LTG Duration 11/02/23 FAAM Impairment Pt with score of 17/84 on FAAM . Short Term Goal (STG) Pt with score of 30/84 on FAAM STG Duration 07/23/23 Nursing Home Goal (LTG) Pt with score of 50/84 on FAAM 08/20/23: FAAM score is 39/84. LTG Duration 11/02/23 Pain Impairment Pt reporting 9/10 pain at the worst Short Term Goal (STG) Pt to report 6/10 at the worst STG Duration 07/23/23 Nursing Home Goal (LTG) Pt to report 2/10 at the worst . 08/20/23: Pt reports he has 7-8 /10 pain in the morning and has to use his crutch first thing in the morning LTG Duration 11/02/23 Assessment Summary Assessment Pt is moving and only has two treatments left. Can review balance exercises and consider bridging progression next treatment date for core and hip strengthening and ankle ROM. D/c in two treatments. Physical Therapy Plan Frequency and Duration Frequency of Treatment 1-2x/wk Duration of treatment (weeks) 12 Plan of Care Start Date 08/20/23 Plan of Care End Date 11/02/23 Therapeutic Interventions Therapeutic Interventions Balance Training,Coordination Training,Gait Training,Home Exercise Program,Joint Mobilizations,Manual Therapy, Neuromuscular Re-education, Patient/Caregiver Education, Self-Care/Home Management,Soft Tissue Mobilization,Taping, Therapeutic Activities, Therapeutic Exercises Modalities Cold Pack/Ice Massage,Electric Stimulation,Hot Packs, Ultrasound Next Visit Focus/Plan Next Note Type Treatment Note Next Visit Plan Consider bridging progression and add hip strengthening in this position, review HEP
--- NOTE | 2023-10-02 10:38 | PT.OTN ---
Current Diagnoses Displaced fracture of intermediate cuneiform of right foot, sequela (10/02/23) Displaced fracture of second metatarsal bone, right foot, sequela (10/02/23) Dislocation of tarsometatarsal joint of right foot, subsequent encounter (10/02/23) Disruption of external operation (surgical) wound, not elsewhere classified, subsequent encounter (10/02/23) Physical Therapy Treatment Note PT-OP-A Visit Information Start: 06/11/23 09:02 Freq: Status: Active Protocol: Document 10/02/23 09:48 SP (Rec: 10/02/23 10:40 SP [id number]) Out-Patient Physical Therapy Visit Information Visit Information Visit Type Treatment Note Visit Start Time 09:48 Visit Stop Time 10:38 Visit Number 7 Number of DIGITAL PROJECT MANAGER Visits 1 Evaluation Information Evaluation Date 06/11/23 Precautions Precautions Pt with IV infusions for infection, Gradual increase weight-bearing as tolerated 02/22/23: initial surgery R foot. 03/21/23: s/p R lisfranc fusion 05/26/23: 25% WB in boot, with increase WB weekly. Once full WB in boot, start weaning to shoe /c arch support (midfoot fused). Cleared for AROM and strengthening. PT-OP-B Current Condition Start: 06/11/23 09:02 Freq: Status: Active Protocol: Document 06/11/23 12:21 AM (Rec: 06/11/23 17:58 AM [id number]) Current Condition History of Current Condition Onset Date Initial injury 02/22/23 Current Complaints R foot pain History of Current Condition Pt had R lisfranc fusion . Pt was helping someone move an armoire down the stairs. The armoire hit his foot. Pt reports that it shattered his foot. Pt's is on his 4th surgery with recent fusion. Pt then got an infection following the 3rd surgery, therefore had a 4th surgery to clean the area. Pt is now getting infusion antibiotics. Pt reports that he feels that the antibiotic fusions have cause joint stiffness elsewhere. Pt is going to be transitioning to an oral antibiotic to see if joint stiffness decreases. Pt reports that he also has R knee pain from prior surgery. He is now wearing a knee brace for that. Pain at R medial knee joint. Pt reports that he is cleared to increase weight -bearing through R LE, but only able to put 25% of his body weight on R LE while ambulating. Prior Treatments and Tests K-wire fixation of the 5th metatarsal tarsometatarsal joint. Screw and plate fixation of the 1st through 3rd tarsometatarsal joints. tarsometatarsal joints. Prior Functional Status Baseline Function- ADL's Independent Baseline Function- Mobility Independent Current Functional Impairments (Reported) Functional Limitations- ADL's Pt independent with ADLs Functional Limitations- Mobility/Gait Pt ambulating with JORY. Pt has stairs at home and had been Functional Limitations- Work/School Pt is retired PT-OP-C Subjective Start: 06/11/23 09:02 Freq: Status: Active Protocol: Document 10/02/23 09:48 SP (Rec: 10/02/23 10:40 SP [id number]) OP-PT Subjective Patient Comments Patient Comments Pt reports peroneals R and ankle hurting when gets up and limps until loosenes up. He reports did alot packing and moving around after last tx so not sure what caused R ankle pain. He wants what can do to be better about stepping/ walking to improve strength while still dong tasks has to prep move. PT-OP-G Mobility & Gait Start: 06/11/23 09:02 Freq: Status: Active Protocol: Document 06/11/23 12:21 AM (Rec: 06/11/23 17:58 AM [id number]) OP Gait Assessment Gait Gait Assistance Required: Independent Assistive Devices Assistive Device Axillary Crutches Orthotic/Prosthetic Devices or Brace: Yes Gait Deviations General Gait Pattern Antalgic,Decreased Stride Length Comments Gait Comments Pt ambulates with R knee flexed and lack of heel strike /push-off. Stair Climbing Evaluation Evaluation Level of Assist On Stairs Standby Assistance Devices Stair Climbing Assistive Devices Axillary Crutches,Right Railing Technique/Endurance Stair Climbing Direction Ascend and Descend Stair Climbing Technique Step to Step Number of Steps Climbed 8 Comments Stair Climbing Comments Pt demonstrated ascending with R LE leading and descending with L LE leading. Pt cued to ascend with L leading and descend with R leading to decrease strain at R knee. Pt able to demonstrate safety with this. PT-OP-J Posture/Palpation/Skin Start: 06/11/23 09:02 Freq: Status: Active Protocol: Document 06/11/23 12:21 AM (Rec: 06/11/23 17:58 AM [id number]) Skin Assessment Edema Assessment Right Foot Edema Type Pitting Subjective Edema Description Tightness Incisional Assessment Incision Appearance/Comments Pt's incision sites are not full healed, though dry. Pt being treated for infection PT-OP-K Range of Motion Start: 06/11/23 09:02 Freq: Status: Active Protocol: Document 07/01/23 09:03 AM (Rec: 07/01/23 13:08 AM [id number]) Knee Goniometric Range of Motion Knee Right Flexion Active (degrees) 135 Extension Active (degrees) 0 Ankle and Foot Goniometric Range of Motion Ankle and Foot Right Active Dorsiflexion with Knee Extended 2 PT-OP-M Strength Start: 06/11/23 09:02 Freq: Status: Active Protocol: Document 06/11/23 12:21 AM (Rec: 06/11/23 17:58 AM [id number]) Ankle/Foot Strength Ankle and Foot Manual Muscle Testing Right Comments NT secondary to pain Left Dorsiflexion (L4) 5 Normal Plantarflexion (S1) 5 Normal Inversion 5 Normal Eversion (S1) 5 Normal PT-OP-Q Treatments Start: 06/11/23 09:02 Freq: Status: Active Protocol: Document 10/02/23 09:48 SP (Rec: 10/02/23 10:40 SP [id number]) Cardio Equipment Bicycle (Upright) Duration (Minutes) 8 Resistance Level 9 Seat Position 7 Other cues for ankle mobility PF& DF awareness, & carryover at gym Therapeutic Exercises Other Exercises self mobs DF /c TB Other Exercise Name added to HEP: self MWM into DF Side right Resistance TB #2 anterior talus/malleolus around opp LE ankle split stance Equipment Used 2nd step/rail support Reps/Minutes 5 reps x2 Comments good feedback self application MWM DF ankle AAROM and tarsal mobility Manual Therapy Treatment Joint Mobilizations MTPs Joint R gross motor midft MTPs rotation, calcaneus med/lat Direction gentle AP, PA Grade II Reps/Duration supine & seated Comments therapist manual and education RLE over L knee ed self gentle AAROM, improved less ankle stiffness. talocrural Direction A-P Grade II Body Position Supine Reps/Duration 1 min Comments supine into DF AAROM, gains ROM with reps, painfree, ed self use TB anterior stairs- demonstrated before left, see HO- good feedback Taping ktape Body Location R ankle: peroneal and extensor digitorium longus Treatment Focus lateral and eccentric DF mobility support Type of Tape Kinesio Tape Skin Inspection normal color, skin intact Comments 1. 1st strip at mid lateral fibula split to base of 5thMTP other plantar 3 rdMTP. 2. 2nd strip Tib Ant split to 2-3rd dorsal IP MTPs. Good feedback feels supportive and not painful stepping. Good understanding of adverse affects: redness, itching, tingling remove immediately otherwise 24- 48 hrs and if still ok and benefits of stabililty can wear up to 2-4 days. Can be worn in shower, careful removing, gently can use oil help ease if needed. Other Other Manual Treatments Gentle mobs moveable phalanges right foot, CFM plantar fascia, MWM with active DF and PF and TrP pressure right anterior tib, STM and positional release right gastroc Neuro Re-Education Treatment Balance Activities hurdles Details trialed lyssa stepping for DF and WB mechanics to allow functional mob Comments improves stability with cues for tall posture/ core/ rhomboid fac into stance LE, eccentric heel strike into advanced LE. Coordination Activities wt shift on uneven surface Details feet // Equipment foam pad shoes doffed Comments wt shift into each LE, awareness of arch lift for ankle support Self-Care/Home Management Treatment Education Patient Education Body Mechanics,Joint Protection,Pain Management, Posture,Safety Other Education ed for mechanics heel toe, DF pivot turns during packing and walking around with boxes, could be over doing what ankle has strength for. ALso sit and rest when ankle hurting, modality good recovery but will be stiff right after. Ed self STMs, PROM& MWM into DF to support ROM walking. PT-OP-R Modalities Start: 06/11/23 09:02 Freq: Status: Active Protocol: Document 09/25/23 10:32 SP (Rec: 09/25/23 11:59 SP [id number]) Hot Pack/Cold Pack Treatment CP Location R forefoot- 5 min end tx Patient Position Sitting Patient Tolerance Good Comments feel numbing, less discomfort pain PT-OP-T Assessment and Plan Start: 06/11/23 09:02 Freq: Status: Active Protocol: Document 10/02/23 09:48 SP (Rec: 10/02/23 10:40 SP [id number]) Physical Therapy Assessment Goals HEP Manufacturing Engineer Assembly Goal (LTG) Pt independent with HEP. 08/20/23: Pt is performing current exercises 5x/wk. LTG Duration 11/02/23 FAAM Impairment Pt with score of 17/84 on FAAM . Short Term Goal (STG) Pt with score of 30/84 on FAAM STG Duration 07/23/23 Manufacturing Engineer Assembly Goal (LTG) Pt with score of 50/84 on FAAM 08/20/23: FAAM score is 39/84. LTG Duration 11/02/23 Pain Impairment Pt reporting 9/10 pain at the worst Short Term Goal (STG) Pt to report 6/10 at the worst STG Duration 07/23/23 [facility]ci Goal (LTG) Pt to report 2/10 at the worst . 08/20/23: Pt reports he has 7-8 /10 pain in the morning and has to use his crutch first thing in the morning LTG Duration 11/02/23 Assessment Summary Assessment Pt reports able to move R ankle better, little sore over lateral distal peroneals with uneven wt shifting then lyssa stepping to support mechanics of walking around home and packing awareness. Reported R ankle felt more confident post manual and self instruction, stated Ktaping helped ankle feel more supportive end of tx. Pt still demonstrates weakness in calf toe off gait phase and knows will probably progress with PT after moves. Good understanding use of ktaping and safety when remove. Pt wanted work more on standing moving activities help support packing home. Will add progression bridging and hip strengthening next tx as written in PT's POC next tx to also support gait and mobility. Pt understood is doing activity may be to much but things need do to prepare move, ed for seated rest and theraband HEP to support strength while not WB. Physical Therapy Plan Frequency and Duration Frequency of Treatment 1-2x/wk Duration of treatment (weeks) 12 Plan of Care Start Date 08/20/23 Plan of Care End Date 11/02/23 Therapeutic Interventions Therapeutic Interventions Balance Training,Coordination Training,Gait Training,Home Exercise Program,Joint Mobilizations,Manual Therapy, Neuromuscular Re-education, Patient/Caregiver Education, Self-Care/Home Management,Soft Tissue Mobilization,Taping, Therapeutic Activities, Therapeutic Exercises Modalities Cold Pack/Ice Massage,Electric Stimulation,Hot Packs, Ultrasound Next Visit Focus/Plan Next Note Type Treatment Note Next Visit Plan Ask how responded to manual, self instruction and ktaping, did rest R ankle during packing/more walking around home prep move. POC: next tx w/ PT Consider bridging progression and add hip strengthening in this position, review HEP
--- NOTE | 2023-10-07 13:24 | PT.OTN ---
Current Diagnoses Displaced fracture of intermediate cuneiform of right foot, sequela (10/07/23) Displaced fracture of second metatarsal bone, right foot, sequela (10/07/23) Dislocation of tarsometatarsal joint of right foot, subsequent encounter (10/07/23) Disruption of external operation (surgical) wound, not elsewhere classified, subsequent encounter (10/07/23) Physical Therapy Treatment Note PT-OP-A Visit Information Start: 06/11/23 09:02 Freq: Status: Active Protocol: Document 10/07/23 12:44 MB (Rec: 10/07/23 13:23 MB [id number]) Out-Patient Physical Therapy Visit Information Visit Information Visit Type Treatment Note Visit Start Time 12:45 Visit Stop Time 13:25 Visit Number 8 Number of MACHINE STONE POLISHER APPRENTICE Visits 0 Evaluation Information Evaluation Date 06/11/23 Precautions Precautions Pt with IV infusions for infection, Gradual increase weight-bearing as tolerated 02/22/23: initial surgery R foot. 03/21/23: s/p R lisfranc fusion 05/26/23: 25% WB in boot, with increase WB weekly. Once full WB in boot, start weaning to shoe /c arch support (midfoot fused). Cleared for AROM and strengthening. PT-OP-B Current Condition Start: 06/11/23 09:02 Freq: Status: Active Protocol: Document 06/11/23 12:21 AM (Rec: 06/11/23 17:58 AM [id number]) Current Condition History of Current Condition Onset Date Initial injury 02/22/23 Current Complaints R foot pain History of Current Condition Pt had R lisfranc fusion . Pt was helping someone move an armoire down the stairs. The armoire hit his foot. Pt reports that it shattered his foot. Pt's is on his 4th surgery with recent fusion. Pt then got an infection following the 3rd surgery, therefore had a 4th surgery to clean the area. Pt is now getting infusion antibiotics. Pt reports that he feels that the antibiotic fusions have cause joint stiffness elsewhere. Pt is going to be transitioning to an oral antibiotic to see if joint stiffness decreases. Pt reports that he also has R knee pain from prior surgery. He is now wearing a knee brace for that. Pain at R medial knee joint. Pt reports that he is cleared to increase weight -bearing through R LE, but only able to put 25% of his body weight on R LE while ambulating. Prior Treatments and Tests K-wire fixation of the 5th metatarsal tarsometatarsal joint. Screw and plate fixation of the 1st through 3rd tarsometatarsal joints. tarsometatarsal joints. Prior Functional Status Baseline Function- ADL's Independent Baseline Function- Mobility Independent Current Functional Impairments (Reported) Functional Limitations- ADL's Pt independent with ADLs Functional Limitations- Mobility/Gait Pt ambulating with JORY. Pt has stairs at home and had been Functional Limitations- Work/School Pt is retired PT-OP-C Subjective Start: 06/11/23 09:02 Freq: Status: Active Protocol: Document 10/07/23 12:44 MB (Rec: 10/07/23 13:23 MB [id number]) OP-PT Subjective Patient Comments Patient Comments Pt is packed and ready to move . He is sore. PT-OP-G Mobility & Gait Start: 06/11/23 09:02 Freq: Status: Active Protocol: Document 06/11/23 12:21 AM (Rec: 06/11/23 17:58 AM [id number]) OP Gait Assessment Gait Gait Assistance Required: Independent Assistive Devices Assistive Device Axillary Crutches Orthotic/Prosthetic Devices or Brace: Yes Gait Deviations General Gait Pattern Antalgic,Decreased Stride Length Comments Gait Comments Pt ambulates with R knee flexed and lack of heel strike /push-off. Stair Climbing Evaluation Evaluation Level of Assist On Stairs Standby Assistance Devices Stair Climbing Assistive Devices Axillary Crutches,Right Railing Technique/Endurance Stair Climbing Direction Ascend and Descend Stair Climbing Technique Step to Step Number of Steps Climbed 8 Comments Stair Climbing Comments Pt demonstrated ascending with R LE leading and descending with L LE leading. Pt cued to ascend with L leading and descend with R leading to decrease strain at R knee. Pt able to demonstrate safety with this. PT-OP-J Posture/Palpation/Skin Start: 06/11/23 09:02 Freq: Status: Active Protocol: Document 06/11/23 12:21 AM (Rec: 06/11/23 17:58 AM [id number]) Skin Assessment Edema Assessment Right Foot Edema Type Pitting Subjective Edema Description Tightness Incisional Assessment Incision Appearance/Comments Pt's incision sites are not full healed, though dry. Pt being treated for infection PT-OP-K Range of Motion Start: 06/11/23 09:02 Freq: Status: Active Protocol: Document 07/01/23 09:03 AM (Rec: 07/01/23 13:08 AM [id number]) Knee Goniometric Range of Motion Knee Right Flexion Active (degrees) 135 Extension Active (degrees) 0 Ankle and Foot Goniometric Range of Motion Ankle and Foot Right Active Dorsiflexion with Knee Extended 2 PT-OP-M Strength Start: 06/11/23 09:02 Freq: Status: Active Protocol: Document 06/11/23 12:21 AM (Rec: 06/11/23 17:58 AM [id number]) Ankle/Foot Strength Ankle and Foot Manual Muscle Testing Right Comments NT secondary to pain Left Dorsiflexion (L4) 5 Normal Plantarflexion (S1) 5 Normal Inversion 5 Normal Eversion (S1) 5 Normal PT-OP-Q Treatments Start: 06/11/23 09:02 Freq: Status: Active Protocol: Document 10/07/23 12:44 MB (Rec: 10/07/23 13:23 MB [id number]) Cardio Equipment Recumbent Stepper (Sci-Fit) Duration (Minutes) 10 Resistance 9 Bicycle (Upright) Duration (Minutes) 10 Resistance Level 10 Seat Position 8 Therapeutic Exercises Supine Exercises Bridge Resistance TB#2 Reps/Minutes Several reps Comments Bridge with then press out into band, opp foot lift Sitting Exercises STS Comments Standing next to the step, cues to push through hip and knee own it Other Exercises self mobs DF /c TB Side right Resistance TB #2 anterior talus/malleolus around opp LE ankle split stance Equipment Used 2nd step/rail support Reps/Minutes 5 reps x2 PT-OP-R Modalities Start: 06/11/23 09:02 Freq: Status: Active Protocol: Document 09/25/23 10:32 SP (Rec: 09/25/23 11:59 SP [id number]) Hot Pack/Cold Pack Treatment CP Location R forefoot- 5 min end tx Patient Position Sitting Patient Tolerance Good Comments feel numbing, less discomfort pain PT-OP-T Assessment and Plan Start: 06/11/23 09:02 Freq: Status: Active Protocol: Document 10/07/23 12:44 MB (Rec: 10/07/23 13:23 MB [id number]) Physical Therapy Assessment Goals HEP Mcfp Goal (LTG) Pt independent with HEP. 10/07/23: Pt is performing exercises 3x/wk. He is performing some of the [place] balance and LE exercises. LTG Duration D/c today FAAM Impairment Pt with score of 17/84 on FAAM . Short Term Goal (STG) Pt with score of 30/84 on FAAM STG Duration 07/23/23 Weigher Production Goal (LTG) Pt with score of 50/84 on FAAM 08/20/23: FAAM score is 39/84. 10/07/23: FAAM score 50/84 LTG Duration Met Pain Impairment Pt reporting 9/10 pain at the worst Short Term Goal (STG) Pt to report 6/10 at the worst STG Duration 07/23/23 Weigher Production Goal (LTG) Pt to report 2/10 at the worst . 10/07/23: Pt con't to c/o 7-8/ 10 pain in the morning when he wakes up and he has to use the door jam to stand up and the sink to go to the restroom . After 10 minutes, he can push himself to walk LTG Duration D/c today Assessment Summary Assessment Pt has met FAAM goal and is performing his exercises 3x/wk as he has been preparing to move. He con't to have extremely high pain of 7-8/10 when first wakes up in the morning and this has not gotten better over the months. He is moving and would like to con't PT out of state. PT does feel that surgical metal components in the right foot are limiting motion and are at the area of pain and this has been barrier to progression. Physical Therapy Plan Frequency and Duration Frequency of Treatment 1-2x/wk Duration of treatment (weeks) 12 Plan of Care Start Date 08/20/23 Plan of Care End Date 11/02/23 Therapeutic Interventions Therapeutic Interventions Balance Training,Coordination Training,Gait Training,Home Exercise Program,Joint Mobilizations,Manual Therapy, Neuromuscular Re-education, Patient/Caregiver Education, Self-Care/Home Management,Soft Tissue Mobilization,Taping, Therapeutic Activities, Therapeutic Exercises Modalities Cold Pack/Ice Massage,Electric Stimulation,Hot Packs, Ultrasound Next Visit Focus/Plan Next Note Type Discharge Summary Next Visit Plan D/cing today
== END 2023-10-08 10:33 | disposition home or self-care (01) ==
LOC: PHYS 12:45
PROVIDERS: Family Provider Orthopaedic Surgery Foot and Ankle Surgery; PCP Orthopaedic Surgery Foot and Ankle Surgery; Referring Provider Orthopaedic Surgery Foot and Ankle Surgery; Visit Provider Orthopaedic Surgery Foot and Ankle Surgery
DX: T81.31XD Disruption of external operation (surgical) wound, not elsewhere classified, subsequent encounter (principal); S93.324D Dislocation of tarsometatarsal joint of right foot, subsequent encounter; S92.231 Displaced fracture of intermediate cuneiform of right foot; S92.321S Displaced fracture of second metatarsal bone, right foot, sequela
CPT/HCPCS: 97110; 97112; 97116; 97140; 97161; 97535